=== PATIENT | female | born 1980 | race Hispanic/Latino ===

== ENCOUNTER 2022-06-02 09:01 | Emergency (ER) | payer OTHER, SELFPAY ==
[2022-06-02] VITALS (7 sets, daily range): BP systolic 100–123; BP diastolic 57–61; PULSE 51–70; RESP 16–24; TEMP 36.8; O2SAT 97–99; BMI 27.3
--- NOTE | 2022-06-02 09:32 | ED_ITS ---
HPI - Neuro Symptoms/Deficit General Chief Complaint: Shortness of Breath/Dyspnea Stated Complaint: left arm is numb and tingly/pain Time Seen by Provider: 06/02/22 09:16 Source: patient Mode of arrival: Family Vehicle History of Present Illness HPI Narrative: Patient is a 41-year-old female history of anxiety presenting today with left a rm tingling. She was evaluated 5 days ago for what was thought to be left elbow strain. It hurts every time she moved. This morning she woke up and feels like she slept wrong. Her arm shoulder to fingertips is tingly. She denies any weakness. No chest pain palpitations or shortness breath. She denies any fever or chills. This has never happened to her before. She denies any neck. On Anticoagulants: No Related Data Home Medications Medication Instructions Recorded Confirmed No Known Home Medications 05/28/22 05/28/22 Allergies Allergy/AdvReac Type Severity Reaction Status Date / Time No Known Drug Allergies Allergy Unverified 05/28/22 17:38 Review of Systems Review of Systems Narrative: GENERAL: Denies chills, fatigue, malaise, fever, sweats, travel HEENT: Denies sinus pain, ear pain, sore throat, difficulty swallowing, neck pain RESPIRATORY: Denies dyspnea, cough, wheezing, hemoptysis, sputum. CARDIOVASCULAR: Denies chest pain, palpitations, orthopnea, edema GASTROINTESTINAL: Denies nausea, vomiting, abdominal pain, diarrhea, constipation, melena. : Denies dysuria, frequency, incontinence, hematuria, urinary retention, flank pain. MUSCULOSKELETAL: Denies weakness, joint pain, or bony pain SKIN: No rash, no erythema, no pruritus NEUROLOGIC: See HPI PSYCHIATRIC: No concerning psychosocial issues. 12 point review of systems is negative except for those stated above and HPI Hematologic/Lymphatic On Anticoagulants: No Patient History Social History Smoking Status: Current every day smoker Smoking Status: Current every day smoker tobacco type: cigarettes and vaping alcohol intake frequency: 0-2 drinks per day Substance Use Type: former substance user and methamphetamine Exam Initial Vital Signs Initial Vital Signs: Vital Signs Pulse Rate 66 06/02/22 09:08 Respiratory Rate 18 06/02/22 09:08 Pulse Oximetry 97 06/02/22 09:08 GENERAL: Alert pleasant 41-year-old female and in no acute distress. HEENT: Head atraumatic,EOMI, pupils reactive, face symmetric, moist mucous membranes CARDIOVASCULAR: Regular rate and rhythm without murmurs, rubs or gallops. RESPIRATORY: Breath sounds equal bilaterally, no wheezes rales or rhonchi. ABDOMEN: Soft, nontender. Normoactive bowel sounds all 4 quadrants. No guarding or rebound. EXTREMITIES: Normal range of motion, no clubbing or edema. Neurovascularly intact NEUROLOGICAL: Alert and oriented x4.Normal gait and speech. Cranial nerves II through XII grossly intact. Good tzrrbq-ul-gjtp, good xeej-ch-btwj, strength equal bilaterally, no dysarthria or aphasia, slight decreased sensation in left arm only y, no visual changes, no facial droop SKIN: Warm, dry, no laceration, no petechiae, no rashes or lesions. Scores ABCD2 Age >= 60 years: no Initial BP. Either SBP >= 140 or DBP >= 90.: no Clinical features of the TIA: other symptoms Duration of symptoms: >= 60 minutes History of diabetes: no ABCD2 Score: 2 NIH Stroke Scale Level of Conciousness: Alert, keenly responsive Ask month/age: Answers both questions correctly. Open/close eyes, close hand: Performs both tasks correctly Best gaze horizontal: Normal Visual lopez: No visual loss Facial palsy: Normal symetrical movement Left arm drift: No drift for full 10 sec Right arm drift: No drift for full 10 sec Left leg drift: No drift for full 5 sec Right leg drift: No drift for full 5 sec Limb ataxia: Absent Sensory on face/arms/legs: Mild to moderate sensory loss, can tell touch Best language: No aphasia, normal Dysarthria: Normal Extinction or inattention: No abnormality Total NIH Stroke scale score: 1 Course Orders Ordered: ED Orders 06/02/22 09:13 EKG-12 Lead Routine 06/02/22 09:15 Complete Blood Count AUTO DIFF Stat Comprehensive Metabolic Panel Stat Lipase Stat Test Serum,Qual Stat Troponin & CK Cardiac Panel Stat 06/02/22 09:42 CT angio head and neck Stat 06/02/22 09:43 XR chest 1V Stat Vital Signs Vital signs: Vital Signs - 8 hr 06/02/22 11:15 06/02/22 11:16 06/02/22 11:16 Pulse Rate 63 58 L Respiratory Rate 18 Blood Pressure 101/57 L Pulse Oximetry 99 98 MDM - Neuro Symptoms/Deficit Lab Data Result diagrams: 06/02/22 09:15 06/02/22 09:15 Labs: Lab Results 06/02/22 06/02/22 06/02/22 Range/Units 09:15 09:15 09:15 WBC 6.6 (4.5-11.0) X10^3/uL RBC 4.05 (4.0-5.2) X10^6/uL Hgb 13.0 (12.0-16.0) g/dL Hct 36.7 (36-46) % MCV 90.7 (80-100) fL MCH 32.2 (26-34) PG MCHC 35.5 (30-36) % RDW 12.6 (11.6-14.8) % Plt Count 175 (150-400) X10^3/uL Neut % (Auto) 56.4 (50-75) % Lymph % (Auto) 33.9 (25-40) % [place] % (Auto) 7.2 (3-14) % Eos % (Auto) 2.0 (2-4) % Baso % (Auto) 0.5 (0-2) % Neut # (Auto) 3700 (8582-2032) /uL Lymph # (Auto) 2200 (1863-6183) /uL [place] # (Auto) 500 (0-900) /uL Eos # (Auto) 100 (0-450) /uL Baso # (Auto) 0 (0-100) /uL Sodium 137 (137-145) mmol/L Potassium 4.1 (3.4-5.1) mmol/L Chloride 103 (98-107) mmol/L Carbon Dioxide 29 (22-32) mmol/L BUN 14 (7-17) mg/dL Creatinine 0.71 (0.52-1.04) mg/dL Estimated GFR > 60 (>60) mL/min BUN/Creatinine Ratio 19.7 (6-22) Glucose 94 (70-100) mg/dL Calcium 8.9 (8.4-10.2) mg/dL Total Bilirubin 0.5 (0.2-1.3) mg/dL AST 23 (14-36) IU/L ALT 14 (<35) IU/L Alkaline Phosphatase 47 (38-126) U/L Total Creatine Kinase 51 (30-135) U/L CK-MB (CK-2) TNP CK-MB (CK-2) Rel Index TNP Troponin I < 0.012 (0.01-0.034) ng/mL Total Protein 7.0 (6.3-8.2) g/dL Albumin 4.2 (3.5-5.0) g/dL Globulin 2.8 (1.7-4.1) g/dL Albumin/Globulin Ratio 1.5 (1.0-2.8) Lipase 73 (23-300) U/L Serum , Qual Negative (Negative) Imaging Data Chest x-ray: Radiologist's Impression: XRay Report Signed Patient: Damaris Shea MR#: [id number] : 1980 Acct:[id number] Age/Sex: 41 / F Date of Service: 06/02/22 Loc: ED Accession Number: [id number] ?? Procedure: XR chest 1V Ordering Provider: Tracie Miranda D.O. PROCEDURE:? XR CHEST 1V ? INDICATIONS:? chest ? TECHNIQUE:? One view of the chest was acquired.? ? COMPARISON:? None. ? FINDINGS:? ? Surgical changes and devices:? None.? ? Lungs and pleura:? Ill-defined opacity in right lower lung field is seen suggestive of small right lower lobe infiltrate.? No pleural effusions or pneumothorax.? ? Mediastinum:? Mediastinal contours appear normal.? Heart size is normal.? ? Bones and chest wall:? No suspicious bony lesions.? Overlying soft tissues appear unremarkable.? ? IMPRESSION:? Finding is concerning for small right lower lobe infiltrate/atelectasis.? No pleural effusion or pneumothorax. ? ? Dictated by: Rajeev Shaw M.D. on 06/02/2022 at 10:42 ? CTA - brain/neck: Radiologist's Impression: CT Scan Report Signed Patient: Damaris Shea MR#: [id number] : 1980 Acct:[id number] Age/Sex: 41 / F Date of Service: 06/02/22 Loc: ED Accession Number: [id number] ?? Procedure: CT angio head and neck Ordering Provider: Tracie Miranda D.O. PROCEDURE:? CT ANGIO HEAD AND NECK ? INDICATIONS:? left arm tingling ? TECHNIQUE:? Pre-contrast 4.5 mm thick sections acquired from the foramen magnum to the vertex.? After the administration of intravenous contrast, 1 mm thick sections acquired from the aortic arch through the [place].? Post-contrast 4.5 mm thick sections then re- acquired from the foramen magnum to the vertex.? 3-dimensional hldkcbc-xgpvvlunq-cuekukmjel (MIP) and/or volume rendering reformats were acquired of the central intracranial vasculature and neck separately. For radiation dose reduction, the following was used:? automated exposure control, adjustment of mA and/or kV according to patient size.? ? COMPARISON:? [facility], CR, XR CHEST 1V, 06/02/2022, 10:00. ? FINDINGS:? Image quality:? Mild streak artifact can be seen through the skull base.? Limited by bolus timing, with venous contamination ? BRAIN:? CSF spaces:? Ventricles are normal in size and shape.? Basal cisterns are patent.? No extra-axial fluid collections.? ? Brain:? No midline shift.? No intracranial bleeds or masses.? Fish-white matter interface appears intact.? ? Skull and face:? Calvarium and facial bones appear intact, without suspicious lesions.? Orbits appear normal.? ? Sinuses:? Sinuses and mastoids are clear.? ? HEAD CT ANGIOGRAPHY:? Anterior circulation:? Intracranial internal carotid arteries are normal in size and flow.? The flow within the paired anterior cerebral arteries is normal and symmetric.? The flow within the middle cerebral arteries is normal and symmetric.? The anterior communicating artery is seen.? No aneurysms are seen.? ? Posterior circulation:? Visualized portions of the vertebral arteries demonstrate normal caliber, and join to form a normal appearing basilar artery.? Flow within the posterior cerebral arteries is normal and symmetric.? No aneurysms are seen.? ? NECK CT ANGIOGRAPHY:? Carotid system:? The great vessels demonstrate a conventional anatomy as they arise from the aortic arch.? No significant subclavian artery abnormality is seen.? The origins of the common carotid arteries appear patent.? The common carotid arteries demonstrate normal caliber and courses.? The bifurcation regions are both widely patent.? The internal carotid arteries demonstrate normal calibers and courses.? ? Posterior circulation:? The origins of the vertebral arteries both appear widely patent.? The more superior extracranial portions of both vertebral arteries also demonstrate normal courses and calibers.? They join to form a normal appearing basilar artery.? ? Soft tissues:? Visualized neck soft tissues demonstrate no suspicious abnormalities.? ? Bones:? No suspicious bony lesions.? Visualized cervical spine appears normally aligned.? IMPRESSION:? No significant intracranial arterial abnormality is seen.? ? Within the arteries of the neck, no hemodynamically significant stenosis can be seen. ? ? No acute intracranial process is seen.? ? If there is strong clinical suspicion for an acute stroke, please consider a brain MRI for further evaluation, as it is more sensitive (assuming that there is no contraindication to MRI). ? Any quantitative measurements of stenosis were performed using NASCET criteria.? ? ? Dictated by: Hu Peralta M.D. on 06/02/2022 at 10:03 ? ECG Data Interpretation: Normal sinus rhythm rate 58 DC interval 144 QRS [address] changes or T- wave inversions, no priors MDM Narrative Medical decision making narrative: Patient is out of the window for tPA. NIH stroke scale is 1. She has ongoing left elbow pain which is been there for about 1 week. A that some of her tingling might be related to her inflammation of her elbow. Blood work is reassuring CTA is negative. Her symptoms actually improved in the ED. she has no risk factors for stroke. She and I discussed these options and possibilities. At this time we agree that she could go home. Probably a peripheral neuropathy possibly exacerbated by her acute tendonitis. Discharge Plan Departure Patient Disposition: Home Clinical Impression: Peripheral neuropathy Instructions: DI for Peripheral Neuropathy Activity Restrictions/Additional Instructions: *You have been diagnosed with peripheral neuropathy *What to do: At this time head CT and blood work were overall reassuring this might be related to your elbow. may need an outpatient MRI. *Continue to take medications as directed Tylenol 1000 mg every 6 hours if needed for kphm-az-zzlosgpa Ibuprofen 600 mg every 6 hours if needed for uwff-qy-lnzunxdm pain *Follow up with your primary care provider in 2-3 days or call [phone] *Return to ER if you should have increasing weakness numbness tingling chest or any new, worsening or concerning symptoms Prescriptions: No Action No Known Home Medications Referrals: Charleen Hubbard DO [Primary Care Provider] - Visit Report Forms: Patient Portal/API
--- NOTE | 2022-06-02 09:42 | DI.CT.S_ITS ---
PROCEDURE: CT ANGIO HEAD AND NECK INDICATIONS: left arm tingling TECHNIQUE: Pre-contrast 4.5 mm thick sections acquired from the foramen magnum to the vertex. After the administration of intravenous contrast, 1 mm thick sections acquired from the aortic arch through the [place]. Post-contrast 4.5 mm thick sections then re-acquired from the foramen magnum to the vertex. 3-dimensional ismfcik-gteisnarq-rdeuamqitd (MIP) and/or volume rendering reformats were acquired of the central intracranial vasculature and neck separately. For radiation dose reduction, the following was used: automated exposure control, adjustment of mA and/or kV according to patient size. COMPARISON: [facility], CR, XR CHEST 1V, 06/02/2022, 10:00. FINDINGS: Image quality: Mild streak artifact can be seen through the skull base. Limited by bolus timing, with venous contamination BRAIN: CSF spaces: Ventricles are normal in size and shape. Basal cisterns are patent. No extra-axial fluid collections. Brain: No midline shift. No intracranial bleeds or masses. Fish-white matter interface appears intact. Skull and face: Calvarium and facial bones appear intact, without suspicious lesions. Orbits appear normal. Sinuses: Sinuses and mastoids are clear. HEAD CT ANGIOGRAPHY: Anterior circulation: Intracranial internal carotid arteries are normal in size and flow. The flow within the paired anterior cerebral arteries is normal and symmetric. The flow within the middle cerebral arteries is normal and symmetric. The anterior communicating artery is seen. No aneurysms are seen. Posterior circulation: Visualized portions of the vertebral arteries demonstrate normal caliber, and join to form a normal appearing basilar artery. Flow within the posterior cerebral arteries is normal and symmetric. No aneurysms are seen. NECK CT ANGIOGRAPHY: Carotid system: The great vessels demonstrate a conventional anatomy as they arise from the aortic arch. No significant subclavian artery abnormality is seen. The origins of the common carotid arteries appear patent. The common carotid arteries demonstrate normal caliber and courses. The bifurcation regions are both widely patent. The internal carotid arteries demonstrate normal calibers and courses. Posterior circulation: The origins of the vertebral arteries both appear widely patent. The more superior extracranial portions of both vertebral arteries also demonstrate normal courses and calibers. They join to form a normal appearing basilar artery. Soft tissues: Visualized neck soft tissues demonstrate no suspicious abnormalities. Bones: No suspicious bony lesions. Visualized cervical spine appears normally aligned. IMPRESSION: No significant intracranial arterial abnormality is seen. Within the arteries of the neck, no hemodynamically significant stenosis can be seen. No acute intracranial process is seen. If there is strong clinical suspicion for an acute stroke, please consider a brain MRI for further evaluation, as it is more sensitive (assuming that there is no contraindication to MRI). Any quantitative measurements of stenosis were performed using NASCET criteria. Dictated by: Hu Peralta M.D. on 06/02/2022 at 10:03 Approved by: Hu Peralta M.D. on 06/02/2022 at 10:06
--- NOTE | 2022-06-02 09:43 | DI.RAD.S_ITS ---
PROCEDURE: XR CHEST 1V INDICATIONS: chest TECHNIQUE: One view of the chest was acquired. COMPARISON: None. FINDINGS: Surgical changes and devices: None. Lungs and pleura: Ill-defined opacity in right lower lung field is seen suggestive of small right lower lobe infiltrate. No pleural effusions or pneumothorax. Mediastinum: Mediastinal contours appear normal. Heart size is normal. Bones and chest wall: No suspicious bony lesions. Overlying soft tissues appear unremarkable. IMPRESSION: Finding is concerning for small right lower lobe infiltrate/atelectasis. No pleural effusion or pneumothorax. Dictated by: Rajeev Shaw M.D. on 06/02/2022 at 10:42 Approved by: Rajeev Shaw M.D. on 06/02/2022 at 10:42
[2022-06-02 09:51] LABS: Add Manual Diff / Slide Review NO; Basophils Absolute Auto 0 /uL (0-100); Basophils Percent Auto 0.5 % (0-2); Eosinophils Absolute Auto 100 /uL (0-450); Hematocrit 36.7 % (36-46); Lymphocytes Absolute Auto 2200 /uL (1100-4500); Lymphocytes Percent Auto 33.9 % (25-40); Mean Corpuscular HGB Conc 35.5 % (30-36); Mean Corpuscular Hemoglobin 32.2 PG (26-34); Mean Corpuscular Volume 90.7 fL (80-100); Monocytes Absolute Auto 500 /uL (0-900); Monocytes Percent Auto 7.2 % (3-14); Neutrophils Absolute Auto 3700 /uL (1500-7000); Neutrophils Percent Auto 56.4 % (50-75); Platelet Count 175 X10^3/uL (150-400); Red Blood Cell Count 4.05 X10^6/uL (4.0-5.2); Red Cell Distribution Width 12.6 % (11.6-14.8); White Blood Cell Count 6.6 X10^3/uL (4.5-11.0)
[2022-06-02 09:58] LABS: Pregnancy Test Serum,Qual Negative (Negative)
[2022-06-02 09:59] LABS: Alanine Aminotransferase 14 IU/L (<35); Albumin 4.2 g/dL (3.5-5.0); Albumin Globulin Ratio 1.5 (1.0-2.8); Alkaline Phosphatase 47 U/L (38-126); Aspartate Aminotransferase 23 IU/L (14-36); BUN Creatinine Ratio 19.7 (6-22); Bilirubin Total 0.5 mg/dL (0.2-1.3); Blood Urea Nitrogen 14 mg/dL (7-17); Calcium 8.9 mg/dL (8.4-10.2); Carbon Dioxide 29 mmol/L (22-32); Chloride 103 mmol/L (98-107); Creatine Kinase 51 U/L (30-135); Estimated Glomerular Filt Rate > 60 mL/min (>60); Globulin 2.8 g/dL (1.7-4.1); Glucose 94 mg/dL (70-100); HEMOLYSIS < 15 (0-50); Lipase 73 U/L (23-300); Potassium 4.1 mmol/L (3.4-5.1); Sodium 137 mmol/L (137-145)
[2022-06-02 10:11] LABS: Troponin I < 0.012 ng/mL (0.01-0.034)
== END 2022-06-02 11:38 | disposition home or self-care (01) ==
PROVIDERS: Emergency Provider Emergency Medicine; PCP Family Medicine
DX: G62.9 Polyneuropathy, unspecified (principal)
CPT/HCPCS: 36415; 70496; 70498; 71045; 80053; 82550; 83690; 84484; 84703; 85025; 93005; 93010; 99283; 99284; Q9967

== ENCOUNTER → 2022-06-04 12:11 | Outpatient (CLI) | payer OTHER, SELFPAY ==
--- NOTE | 2022-06-04 12:12 | DI.RAD.S_ITS ---
PROCEDURE: XR ELBOW LT MIN 3V INDICATIONS: left elbow pain, overuse injury TECHNIQUE: Three views of the elbow were acquired. COMPARISON: None. FINDINGS: Bones: No fractures or dislocations. No suspicious bony lesions. Soft tissues: No elbow joint effusion. No suspicious soft tissue calcifications. IMPRESSION: Intact left elbow. Dictated by: Cindy Coates M.D. on 06/04/2022 at 12:56 Approved by: Cindy Coates M.D. on 06/04/2022 at 12:56
== END ==
PROVIDERS: PCP Family Medicine; Referring Provider Student in an Organized Health Care Education/Training Program; Visit Provider Student in an Organized Health Care Education/Training Program
DX: M25.522 Pain in left elbow (principal)
CPT/HCPCS: 73080

== ENCOUNTER → 2022-07-28 15:48 | Outpatient (CLI) | payer OTHER, SELFPAY ==
[2022-07-28 17:01] LABS: Appearance Urine UA CLEAR; Bilirubin Urine UA NEGATIVE (NEGATIVE); Color Urine UA YELLOW; Glucose Urine UA NEGATIVE (Negative); Ketones Urine UA NEGATIVE (NEGATIVE); Leukocyte Esterase Urine UA NEGATIVE (NEGATIVE); Nitrite Urine UA NEGATIVE (Negative); Occult Blood Urine UA 2+ (Negative); Protein Urine UA NEGATIVE (Negative); Specific Gravity Urine UA <=1.005 (1.000-1.035); Urobilinogen Urine UA 0.2 E.U./dL (0.2)
[2022-07-28 17:08] LABS: pH Urine UA 6.5 (4.5-8.0)
[2022-07-28 17:11] LABS: Bacteria Urine None Seen; Culture Indicated Urine Cult Not Indicated; RBC Urine None Seen (0-5/HPF); Squamous Epithelial Cell Urine 5-10 /HPF (0-5/HPF); WBC Urine None Seen (0-5/HPF)
== END ==
PROVIDERS: PCP Family Medicine; Referring Provider Family Medicine; Visit Provider Family Medicine
DX: N39.0 Urinary tract infection, site not specified (principal)
CPT/HCPCS: 81001

== ENCOUNTER → 2022-09-16 11:29 | Outpatient (CLI) | payer OTHER, SELFPAY ==
[2022-09-16 12:44] LABS: Influenza A - CEPHEID Flu A NEGATIVE (NEGATIVE); Influenza B - CEPHEID Flu B NEGATIVE (NEGATIVE); Respiratory Syncytial Virus Negative (Negative)
[2022-09-16 13:01] LABS: COVID-19 CEPHEID 4-PLEX PCR POSITIVE (Negative)
== END ==
PROVIDERS: Family Provider Family Medicine; PCP Family Medicine; Visit Provider Registered Nurse
DX: R05.9 Cough, unspecified (principal); J02.9 Acute pharyngitis, unspecified
CPT/HCPCS: 0241U; 87070

== ENCOUNTER 2022-09-22 23:24 | Emergency (ER) | payer OTHER, SELFPAY ==
[2022-09-22 23:43] VITALS: BP 113/55; PULSE 64; RESP 16; TEMP 36.8; O2SAT 98; BMI 28.3
== END 2022-09-22 23:57 | disposition left against medical advice (07) ==
PROVIDERS: Emergency Provider Emergency Medicine; Family Provider Family Medicine; PCP Family Medicine
CPT/HCPCS: 99281

== ENCOUNTER 2022-11-17 13:00 | Outpatient (RCR) | payer OTHER, SELFPAY ==
--- NOTE | 2022-09-27 16:14 | PT.OIE ---
Current Diagnoses Pain in left elbow (09/27/22) Past Medical History (Last Reviewed 09/16/22 @ 11:45 by FERNANDA Morrison) Anxiety Left elbow pain Upper extremity somatic dysfunction Urinary tract infection symptoms Past Surgical History (Last Reviewed 09/16/22 @ 11:45 by FERNANDA Morrison) Anesthesia History of shoulder surgery (~02/2020) History of tubal ligation (~2002) Visit Care Team Role Provider Type Charleen Hubbard DO Primary Care Provider Physician Specialty: Medical Address: [address] [place] [address], [address], [place], [address] Email: [email or web address] Rudy Kapoor DO Attending Provider Physician Family Provider Referring Provider Specialty: Family Practice Address: [address] [place] [address], [id number] Email: Physical Therapy Initial Evaluation PT-OP-A Visit Information Start: 09/27/22 09:05 Freq: Status: Active Protocol: Document 09/27/22 08:15 AMB (Rec: 09/27/22 13:00 AMB [id number]) Out-Patient Physical Therapy Visit Information Visit Information Visit Type Initial Evaluation Visit Start Time 09:00 Visit Stop Time 09:45 Total Visit Minutes 45 Visit Number 1 PT-OP-B Current Condition Start: 09/27/22 09:05 Freq: Status: Active Protocol: Document 09/27/22 09:05 AMB (Rec: 09/27/22 09:38 AMB [id number]) Current Condition History of Current Condition Onset Date March 2022 Current Complaints L elbow pain History of Current Condition Used to lift weights but has been unable since March due to elbow pain. No falls/trauma, more insidious onset. Using the phone hurts the elbow. 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 0 pain after manual treatment for a couple days after Dr. Kapoor worked on it, but then the pain came back. Pain is worse at night. Has tried icing and ibuprofen and tylenol which help but didn't want to take too many pills. Overall describes pain as 5/10, can radiate into the forearm and up into the biceps. Pain over medial and lateral epicondyles. Treatment Goals Patient/Caregiver Goals Reduce pain to train dogs/ use phone/sleep without pain Prior Functional Status Baseline Function- ADL's Independent Baseline Function- Mobility Independent Personal Factors Other Personal Factors That May Effect Anxiety Therapy/Recovery PT-OP-C Subjective Start: 09/27/22 09:05 Freq: Status: Active Protocol: Document 09/27/22 08:15 AMB (Rec: 09/27/22 13:00 AMB [id number]) OP-PT Pain Assessment Comments Pain Comments 6/10 L PT-OP-J Posture/Palpation/Skin Start: 09/27/22 09:05 Freq: Status: Active Protocol: Document 09/27/22 08:15 AMB (Rec: 09/27/22 15:53 AMB [id number]) Palpation Assessment Location One Palpation Details tenderness over forearm musculature, not as much into biceps. point tenderness over insertion of both wrist extensors and flexors. PT-OP-K Range of Motion Start: 09/27/22 09:05 Freq: Status: Active Protocol: Document 09/27/22 08:15 AMB (Rec: 09/27/22 15:53 AMB [id number]) Elbow/Forearm Range of Motion Elbow/Forearm Left Elbow/Forearm ROM WFL Yes PT-OP-L Special Tests Start: 09/27/22 09:05 Freq: Status: Active Protocol: Document 09/27/22 08:15 AMB (Rec: 09/27/22 15:53 AMB [id number]) Special Tests Elbow Special Tests Varus- 25 Degrees Test Results - Valgus- 25 Degrees Test Results - Lateral Epicondylitis Extended Test Results + Medial Epicondylitis Test Results + PT-OP-M Strength Start: 09/27/22 09:05 Freq: Status: Active Protocol: Document 09/27/22 08:15 AMB (Rec: 09/27/22 15:53 AMB [id number]) Elbow/Forearm Strength Elbow and Forearm Manual Muscle Testing Left Flexion (C6) 4+ Good+ Extension (C7) 4+ Good+ Wrist Strength Wrist Manual Muscle Testing Left Flexion (C7) 4 Good Extension (C6) 4 Good Comments pain with resisted wrist flexion and extension PT-OP-Q Treatments Start: 09/27/22 09:05 Freq: Status: Active Protocol: Document 09/27/22 08:15 AMB (Rec: 09/27/22 15:53 AMB [id number]) Therapeutic Exercises Sitting Exercises wrist extensor stretch Side left Reps/Minutes 30x2 wrist flexor stretch Side left Reps/Minutes 30x2 PT-OP-T Assessment and Plan Start: 09/27/22 09:05 Freq: Status: Active Protocol: Document 09/27/22 08:15 AMB (Rec: 09/27/22 16:14 AMB [id number]) Physical Therapy Assessment Rehab Potential Rehabilitation Potential Good Evaluation Complexity Number of Personal Factors/Comorbidities 1-2 Number of Body Systems Impaired 1-2 Clinical Presentation at Evaluation Stable Impairments Impairments Activity Tolerance,Functional Activities,Pain,ROM,Strength Goals Two Impairment Strength Short Term Goal (STG) 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 STG Duration 5 weeks Chcf Goal (LTG) Damaris will be consistent and independent with a HEP for stretching and strengthening her left arm and forearm. LTG Duration 10 weeks One Impairment Pain Short Term Goal (STG) Damaris will use her phone for 30 minutes with 3/10 pain or less. STG Duration 5 weeks Garment Cutter Goal (LTG) Damaris will work on dog training for 1 hour with pain of 1/10 or less. LTG Duration 10 weeks Assessment Summary Assessment Damaris attends physical therapy with L elbow pain, worsened with working on her phone and dog walking. Signs and symptoms consistent with both medial and lateral epicondylitis. Educated in options for reducing inflammation and stretching, PT to incorporate strengthening and return to gym exercises as pt tolerates as she has been unable to exercise her upper body for 6 months due to the pain. Physical Therapy Plan Frequency and Duration Frequency of Treatment 2x/Week Duration of treatment (weeks) 10 Plan of Care Start Date 09/27/22 Plan of Care End Date 12/06/22 Therapeutic Interventions Therapeutic Interventions Home Exercise Program,Manual Therapy,Neuromuscular Re- education,Self-Care/Home Management,Therapeutic Activities,Therapeutic Exercises Modalities Cold Pack/Ice Massage,Electric Stimulation,Iontophoresis, Ultrasound Other Therapeutic Interventions ionto with dexamethasone Next Visit Focus/Plan Next Note Type Treatment Note Next Visit Plan begin with stretching, reduce inflammation, can consider iontophoresis vs kinesiotape. Then progress strengthening as tolerated.
--- NOTE | 2022-09-27 16:15 | PT.OPPOC ---
Physical, Occupational & Speech Therapy At [facility] Current Diagnoses Pain in left elbow (09/27/22) Visit Care Team Role Provider Type Charleen Hubbard DO Primary Care Provider Physician Specialty: Medical Address: [address] [place] [address], [address], [place], [address] Email: [email or web address] Rudy Kapoor DO Attending Provider Physician Family Provider Referring Provider Specialty: Family Practice Address: [address] [place] [address], [id number] Email: Plan Of Care PT-OP-T Assessment and Plan Start: 09/27/22 09:05 Freq: Status: Active Protocol: Document 09/27/22 08:15 AMB (Rec: 09/27/22 16:14 AMB [id number]) Physical Therapy Assessment Rehab Potential Rehabilitation Potential Good Evaluation Complexity Number of Personal Factors/Comorbidities 1-2 Number of Body Systems Impaired 1-2 Clinical Presentation at Evaluation Stable Impairments Impairments Activity Tolerance,Functional Activities,Pain,ROM,Strength Goals Two Impairment Strength Short Term Goal (STG) 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 STG Duration 5 weeks Assisted Goal (LTG) Damaris will be consistent and independent with a HEP for stretching and strengthening her left arm and forearm. LTG Duration 10 weeks One Impairment Pain Short Term Goal (STG) Damaris will use her phone for 30 minutes with 3/10 pain or less. 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 LTG Duration 10 weeks Assessment Summary Assessment Damaris attends physical therapy with L elbow pain, worsened with working on her phone and dog walking. Signs and symptoms consistent with both medial and lateral epicondylitis. Educated in options for reducing inflammation and stretching, PT to incorporate strengthening and return to gym exercises as pt tolerates as she has been unable to exercise her upper body for 6 months due to the pain. Physical Therapy Plan Frequency and Duration Frequency of Treatment 2x/Week Duration of treatment (weeks) 10 Plan of Care Start Date 09/27/22 Plan of Care End Date 12/06/22 Therapeutic Interventions Therapeutic Interventions Home Exercise Program,Manual Therapy,Neuromuscular Re- education,Self-Care/Home Management,Therapeutic Activities,Therapeutic Exercises Modalities Cold Pack/Ice Massage,Electric Stimulation,Iontophoresis, Ultrasound Other Therapeutic Interventions ionto with dexamethasone Next Visit Focus/Plan Next Note Type Treatment Note Next Visit Plan begin with stretching, reduce inflammation, can consider iontophoresis vs kinesiotape. Then progress strengthening as tolerated. Plan of Care Dates Plan of Care Start Date 09/27/22 Plan of Care End Date 12/06/22 Electronically Signed by: Zeynep Holman, PT 09/27/22 2216 If you are in agreement with this Plan of Care, please return a signed and dated copy. I have reviewed this Plan of Care and certify that the skilled therapy services above are required to meet the patient?s needs. Physician Signature Date Printed Name and Credentials Clinical Instructor Signature Printed Name and Credentials
--- NOTE | 2022-09-29 22:01 | PT.OTN ---
Current Diagnoses Pain in left elbow (09/29/22) Physical Therapy Treatment Note PT-OP-A Visit Information Start: 09/27/22 09:05 Freq: Status: Active Protocol: Document 09/29/22 09:47 AMB (Rec: 09/29/22 10:33 AMB [id number]) Out-Patient Physical Therapy Visit Information Visit Information Visit Type Treatment Note Visit Start Time 09:45 Visit Stop Time 10:30 Total Visit Minutes 45 Visit Number 2 PT-OP-B Current Condition Start: 09/27/22 09:05 Freq: Status: Active Protocol: Document 09/27/22 09:05 AMB (Rec: 09/27/22 09:38 AMB [id number]) Current Condition History of Current Condition Onset Date March 2022 Current Complaints L elbow pain History of Current Condition Used to lift weights but has been unable since March due to elbow pain. No falls/trauma, more insidious onset. Using the phone hurts the elbow. 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 0 pain after manual treatment for a couple days after Dr. Kapoor worked on it, but then the pain came back. Pain is worse at night. Has tried icing and ibuprofen and tylenol which help but didn't want to take too many pills. Overall describes pain as 5/10, can radiate into the forearm and up into the biceps. Pain over medial and lateral epicondyles. Treatment Goals Patient/Caregiver Goals Reduce pain to train dogs/ use phone/sleep without pain Prior Functional Status Baseline Function- ADL's Independent Baseline Function- Mobility Independent Personal Factors Other Personal Factors That May Effect Anxiety Therapy/Recovery PT-OP-C Subjective Start: 09/27/22 09:05 Freq: Status: Active Protocol: Document 09/29/22 09:47 AMB (Rec: 09/29/22 10:33 AMB [id number]) OP-PT Subjective Patient Comments Patient Comments Pt reports feels like tape is helpful. PT-OP-J Posture/Palpation/Skin Start: 09/27/22 09:05 Freq: Status: Active Protocol: Document 09/27/22 08:15 AMB (Rec: 09/27/22 15:53 AMB [id number]) Palpation Assessment Location One Palpation Details tenderness over forearm musculature, not as much into biceps. point tenderness over insertion of both wrist extensors and flexors. PT-OP-K Range of Motion Start: 09/27/22 09:05 Freq: Status: Active Protocol: Document 09/27/22 08:15 AMB (Rec: 09/27/22 15:53 AMB [id number]) Elbow/Forearm Range of Motion Elbow/Forearm Left Elbow/Forearm ROM WFL Yes PT-OP-L Special Tests Start: 09/27/22 09:05 Freq: Status: Active Protocol: Document 09/27/22 08:15 AMB (Rec: 09/27/22 15:53 AMB [id number]) Special Tests Elbow Special Tests Varus- 25 Degrees Test Results - Valgus- 25 Degrees Test Results - Lateral Epicondylitis Extended Test Results + Medial Epicondylitis Test Results + PT-OP-M Strength Start: 09/27/22 09:05 Freq: Status: Active Protocol: Document 09/27/22 08:15 AMB (Rec: 09/27/22 15:53 AMB [id number]) Elbow/Forearm Strength Elbow and Forearm Manual Muscle Testing Left Flexion (C6) 4+ Good+ Extension (C7) 4+ Good+ Wrist Strength Wrist Manual Muscle Testing Left Flexion (C7) 4 Good Extension (C6) 4 Good Comments pain with resisted wrist flexion and extension PT-OP-Q Treatments Start: 09/27/22 09:05 Freq: Status: Active Protocol: Document 09/29/22 09:45 AMB (Rec: 09/29/22 15:20 AMB [id number]) Therapeutic Exercises Sidelying Exercises open book Sidelying Exercise Name education in gentle ROM options first thing in morning Side left Reps/Minutes 3 Sitting Exercises putty Side left Comments orange biceps Sitting Exercise Name AROM only Side left Reps/Minutes 2x10 Comments supination, pronation, neutral wrist extensor stretch Side left Reps/Minutes 30x2 wrist flexor stretch Side left Reps/Minutes 30x2 Manual Therapy Treatment Soft Tissue Mobilization 1 Body Location biceps Mobilization Type Myofascial Release Taping biceps Type of Tape Kinesio Tape Comments from distal to proximal attachment to inhibit epicondylitis Type of Tape Kinesio Tape Comments I strip just distal to epicondyles mimicking tennis elbow strap PT-OP-R Modalities Start: 09/27/22 09:05 Freq: Status: Active Protocol: Document 09/29/22 09:45 AMB (Rec: 09/29/22 19:03 AMB [id number]) Iontophoresis Treatment Medial Elbow Treatment Medication Dexamethasone (-) Medication Amount (mL) (ml) 1 Treatment Polarity Negative to Negative Active Electrode Placement medial epicondyle Patient Tolerance Fair PT-OP-T Assessment and Plan Start: 09/27/22 09:05 Freq: Status: Active Protocol: Document 09/29/22 09:45 AMB (Rec: 09/29/22 13:01 AMB [id number]) Physical Therapy Assessment Assessment Summary Assessment After patient left felt a burning sensation in iontophoresis patch so educated pt to remove patch and wash with soap and water. Biceps was more irritable today, perhaps k tape helped a bit with epicondylitis but really just started biceps work. Pt has not been icing much, so will need to work more on that in clinic, educate on importance of inflammation reduction. Overall tendons throughout elbow are inflamed. Physical Therapy Plan Frequency and Duration Frequency of Treatment 2x/Week Duration of treatment (weeks) 10 Plan of Care Start Date 09/27/22 Plan of Care End Date 12/06/22 Therapeutic Interventions Therapeutic Interventions Home Exercise Program,Manual Therapy,Neuromuscular Re- education,Self-Care/Home Management,Therapeutic Activities,Therapeutic Exercises Modalities Cold Pack/Ice Massage,Electric Stimulation,Iontophoresis, Ultrasound Other Therapeutic Interventions ionto with dexamethasone Next Visit Focus/Plan Next Note Type Treatment Note Next Visit Plan begin with stretching, reduce inflammation, ice massage, kinesiotape. Then progress strengthening as tolerated.
--- NOTE | 2022-10-04 17:16 | PT.OTN ---
Current Diagnoses Pain in left elbow (10/04/22) Physical Therapy Treatment Note PT-OP-A Visit Information Start: 09/27/22 09:05 Freq: Status: Active Protocol: Document 10/04/22 14:38 NBM (Rec: 10/04/22 17:09 [facility] [id number]) Out-Patient Physical Therapy Visit Information Visit Information Visit Type Treatment Note Visit Start Time 14:40 Visit Stop Time 15:30 Total Visit Minutes 50 Visit Number 3 Number of GUEST SERVICES COORDINATOR Visits 1 PT-OP-B Current Condition Start: 09/27/22 09:05 Freq: Status: Active Protocol: Document 09/27/22 09:05 AMB (Rec: 09/27/22 09:38 AMB [id number]) Current Condition History of Current Condition Onset Date March 2022 Current Complaints L elbow pain History of Current Condition Used to lift weights but has been unable since March due to elbow pain. No falls/trauma, more insidious onset. Using the phone hurts the elbow. 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 0 pain after manual treatment for a couple days after Dr. Kapoor worked on it, but then the pain came back. Pain is worse at night. Has tried icing and ibuprofen and tylenol which help but didn't want to take too many pills. Overall describes pain as 5/10, can radiate into the forearm and up into the biceps. Pain over medial and lateral epicondyles. 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 The putty sometimes feels more sore. 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 PT-OP-J Posture/Palpation/Skin Start: 09/27/22 09:05 Freq: Status: Active Protocol: Document 09/27/22 08:15 AMB (Rec: 12/12/22 15:53 AMB [id number]) Palpation Assessment Location One Palpation Details tenderness over forearm musculature, not as much into biceps. point tenderness over insertion of both wrist extensors and flexors. PT-OP-K Range of Motion Start: 09/27/22 09:05 Freq: Status: Active Protocol: Document 09/27/22 08:15 AMB (Rec: 09/27/22 15:53 AMB [id number]) Elbow/Forearm Range of Motion Elbow/Forearm Left Elbow/Forearm ROM WFL Yes PT-OP-L Special Tests Start: 09/27/22 09:05 Freq: Status: Active Protocol: Document 09/27/22 08:15 AMB (Rec: 09/27/22 15:53 AMB [id number]) Special Tests Elbow Special Tests Varus- 25 Degrees Test Results - Valgus- 25 Degrees Test Results - Lateral Epicondylitis Extended Test Results + Medial Epicondylitis Test Results + PT-OP-M Strength Start: 09/27/22 09:05 Freq: Status: Active Protocol: Document 09/27/22 08:15 AMB (Rec: 09/27/22 15:53 AMB [id number]) Elbow/Forearm Strength Elbow and Forearm Manual Muscle Testing Left Flexion (C6) 4+ Good+ Extension (C7) 4+ Good+ Wrist Strength Wrist Manual Muscle Testing Left Flexion (C7) 4 Good Extension (C6) 4 Good Comments pain with resisted wrist flexion and extension PT-OP-Q Treatments Start: 09/27/22 09:05 Freq: Status: Active Protocol: Document 10/04/22 14:38 NBM (Rec: 10/04/22 17:09 NBM [id number]) Therapeutic Exercises Sitting Exercises Supination/Pronation Side left Resistance 1# dumbbell Reps/Minutes x10 Comments slight discomfort noted to lat . epicondyle end putty Sitting Exercise Name squeeze, opposition Side left Reps/Minutes 4' Comments orange biceps Sitting Exercise Name 1. biceps curls Side left Resistance AROM>1# Reps/Minutes x10 ea Comments supination, pronation, neutral wrist extensor stretch Side left Reps/Minutes 30x1 wrist flexor stretch Side left Reps/Minutes 30x1 Manual Therapy Treatment Soft Tissue Mobilization 1 Body Location L wrist flexors/extensors, biceps Mobilization Type Myofascial Release,Rolling Intensity/Depth Moderate Body Position Sitting Comments LUE supported on pillow Taping biceps Type of Tape Kinesio Tape Comments from distal to proximal attachment to inhibit epicondylitis Type of Tape Kinesio Tape Comments I strip just distal to epicondyles mimicking tennis elbow strap Self-Care/Home Management Treatment Education Patient Education Home Exercise Program,Pain Management,Safety Other Education -Educated pt on inflammation and pain management using ice and rest - HO given for ice cup massage to medial and lateral epicondyles and biceps w/ instructions for no more than 5 minutes and to keep ice moving for duration. -Pt encouraged to support L elbow on pillow when texting and to elevate arm above heart to reduce edema. PT-OP-R Modalities Start: 09/27/22 09:05 Freq: Status: Active Protocol: Document 10/04/22 14:38 NBM (Rec: 10/04/22 17:09 [facility] [id number]) Hot Pack/Cold Pack Treatment Ice Massage Location L lateral and medial epicondyles, L biceps Patient Position Sitting Treatment Duration (minutes) 5 Patient Tolerance Good Comments <5 min ea numb PT-OP-T Assessment and Plan Start: 09/27/22 09:05 Freq: Status: Active Protocol: Document 10/04/22 14:38 NBM (Rec: 10/04/22 17:09 [facility] [id number]) Physical Therapy Assessment Goals Two Impairment Strength Short Term Goal (STG) Damaris will show equal unit aide strength without an 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 STG Duration 5 weeks Fluorescent Solution Mixer Goal (LTG) Damaris will be consistent and independent with a HEP for stretching and strengthening her left arm and forearm. LTG Duration 10 weeks One Impairment Pain Short Term Goal (STG) Damaris will use her phone for 30 minutes with 3/10 pain or less. 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 LTG Duration 10 weeks Assessment Summary Assessment Treatment focus on HEP review and manual therapy. Pt instructed to warm up orange putty at home prior to use as pt is able to tolerate it without pain today when warmed up first. Pt has positive feedback response to ice cup massage with decreased pain reported and will initiate icing at home. Pt given HO for icing L med/lat epicondyles and biceps at home w/ instructions for safety and duration. Physical Therapy Plan Frequency and Duration Frequency of Treatment 2x/Week Duration of treatment (weeks) 10 Plan of Care Start Date 09/27/22 Plan of Care End Date 12/06/22 Therapeutic Interventions Therapeutic Interventions Home Exercise Program,Manual Therapy,Neuromuscular Re- education,Self-Care/Home Management,Therapeutic Activities,Therapeutic Exercises Modalities Cold Pack/Ice Massage,Electric Stimulation,Iontophoresis, Ultrasound Other Therapeutic Interventions ionto with dexamethasone Next Visit Focus/Plan Next Note Type Treatment Note Next Visit Plan Asses response to last treatment, Provide RICE HO, consider cross-friction to tendon insertions at med/lat epicondyles POC: begin with stretching, reduce inflammation, ice massage, kinesiotape. Then progress strengthening as tolerated.
--- NOTE | 2022-10-15 18:51 | PT.OTN ---
Current Diagnoses Pain in left elbow (10/15/22) Physical Therapy Treatment Note PT-OP-A Visit Information Start: 09/27/22 09:05 Freq: Status: Active Protocol: Document 10/15/22 11:45 NBM (Rec: 10/15/22 13:23 NBM [id number]) Out-Patient Physical Therapy Visit Information Visit Information Visit Type Treatment Note Visit Start Time 11:36 Visit Stop Time 12:23 Total Visit Minutes 47 Visit Number 4 Number of ASSOCIATE PROFESSOR OF COUNSELING Visits 2 PT-OP-B Current Condition Start: 09/27/22 09:05 Freq: Status: Active Protocol: Document 09/27/22 09:05 AMB (Rec: 09/27/22 09:38 AMB [id number]) Current Condition History of Current Condition Onset Date March 2022 Current Complaints L elbow pain History of Current Condition Used to lift weights but has been unable since March due to elbow pain. No falls/trauma, more insidious onset. Using the phone hurts the elbow. 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 0 pain after manual treatment for a couple days after Dr. Kapoor worked on it, but then the pain came back. Pain is worse at night. Has tried icing and ibuprofen and tylenol which help but didn't want to take too many pills. Overall describes pain as 5/10, can radiate into the forearm and up into the biceps. Pain over medial and lateral epicondyles. 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 She forgot about her putty exercises. PT-OP-J Posture/Palpation/Skin Start: 09/27/22 09:05 Freq: Status: Active Protocol: Document 09/27/22 08:15 AMB (Rec: 09/27/22 15:53 AMB [id number]) Palpation Assessment Location One Palpation Details tenderness over forearm musculature, not as much into biceps. point tenderness over insertion of both wrist extensors and flexors. PT-OP-K Range of Motion Start: 09/27/22 09:05 Freq: Status: Active Protocol: Document 09/27/22 08:15 AMB (Rec: 09/27/22 15:53 AMB [id number]) Elbow/Forearm Range of Motion Elbow/Forearm Left Elbow/Forearm ROM WFL Yes PT-OP-L Special Tests Start: 09/27/22 09:05 Freq: Status: Active Protocol: Document 09/27/22 08:15 AMB (Rec: 09/27/22 15:53 AMB [id number]) Special Tests Elbow Special Tests Varus- 25 Degrees Test Results - Valgus- 25 Degrees Test Results - Lateral Epicondylitis Extended Test Results + Medial Epicondylitis Test Results + PT-OP-M Strength Start: 09/27/22 09:05 Freq: Status: Active Protocol: Document 09/27/22 08:15 AMB (Rec: 09/27/22 15:53 AMB [id number]) Elbow/Forearm Strength Elbow and Forearm Manual Muscle Testing Left Flexion (C6) 4+ Good+ Extension (C7) 4+ Good+ Wrist Strength Wrist Manual Muscle Testing Left Flexion (C7) 4 Good Extension (C6) 4 Good Comments pain with resisted wrist flexion and extension PT-OP-Q Treatments Start: 09/27/22 09:05 Freq: Status: Active Protocol: Document 10/15/22 11:45 NBM (Rec: 10/15/22 13:23 NBM [id number]) Therapeutic Exercises Supine Exercises supine press Side bilateral Equipment Used 1# Reps/Minutes x10 Comments good form Sitting Exercises putty Sitting Exercise Name squeeze, opposition Side left Reps/Minutes 4' Comments orange biceps Sitting Exercise Name 1. biceps curls x10 ea 2. supin/pronation Side left Resistance AROM>1# Reps/Minutes x10 ea Comments supination, pronation, neutral wrist extensor stretch Side left Reps/Minutes 30x2 wrist flexor stretch Side left Reps/Minutes 30x2 Manual Therapy Treatment Soft Tissue Mobilization 1 Body Location L wrist flexors/extensors, biceps Mobilization Type Myofascial Release,Rolling Intensity/Depth Moderate Body Position Sitting Comments LUE supported on pillow Self-Care/Home Management Treatment Education Patient Education Home Exercise Program,Pain Management,Safety Other Education -Reviewed RICE and importance of elevation, icing for swelling and pain management, emphasized REST for healing and pt agrees to reduce use of cell phone and re-implement rosalva to close down phone at bedtime. -Pt considering use of laptop instead of cell phone. Reviewed seated ergonomics and provided ergonomic station HO . PT-OP-R Modalities Start: 09/27/22 09:05 Freq: Status: Active Protocol: Document 10/15/22 11:45 NBM (Rec: 10/15/22 13:23 [facility] [id number]) Hot Pack/Cold Pack Treatment Ice Massage Location L lateral and medial epicondyles, L biceps Patient Position Sitting Treatment Duration (minutes) 5 Patient Tolerance Good Comments <5 min ea numb PT-OP-T Assessment and Plan Start: 09/27/22 09:05 Freq: Status: Active Protocol: Document 10/15/22 11:45 NBM (Rec: 10/15/22 13:23 [facility] [id number]) Physical Therapy Assessment Goals Two Impairment Strength Short Term Goal (STG) Damaris will show equal decontaminator strength without an 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 STG Duration 5 weeks Laundry Washer Goal (LTG) Damaris will be consistent and independent with a HEP for stretching and strengthening her left arm and forearm. LTG Duration 10 weeks One Impairment Pain Short Term Goal (STG) Damaris will use her phone for 30 minutes with 3/10 pain or less. 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 LTG Duration 10 weeks Assessment Summary Assessment Damaris tolerates warmed putty w/out increase in symptoms when putty. Pt is able to perform biceps curls w/ 1# after ice massage to medial and lateral epicondyles and proximal biceps tendon - long head. Pt expresses improved understanding of importance of Rest and can teach back RICE by end of session. Significant treatment focus on self-care education to promote rest and elevation and reduce pain and swelling. Pt expresses desire to reduce use of cell phone with use of laptop, and to re- implement rosalva to close down phone at bedtime - reviewed seated ergonomics and provided ergonomic station HO. Spouse Balwinder is present throughout treatment session. Physical Therapy Plan Frequency and Duration Frequency of Treatment 2x/Week Duration of treatment (weeks) 10 Plan of Care Start Date 09/27/22 Plan of Care End Date 12/06/22 Therapeutic Interventions Therapeutic Interventions Home Exercise Program,Manual Therapy,Neuromuscular Re- education,Self-Care/Home Management,Therapeutic Activities,Therapeutic Exercises Modalities Cold Pack/Ice Massage,Electric Stimulation,Iontophoresis, Ultrasound Other Therapeutic Interventions ionto with dexamethasone Next Visit Focus/Plan Next Note Type Treatment Note Next Visit Plan Asses response to last treatment, Provide RICE HO, consider cross-friction to tendon insertions at med/lat epicondyles POC: begin with stretching, reduce inflammation, ice massage, kinesiotape. Then progress strengthening as tolerated.
--- NOTE | 2022-10-19 12:33 | PT.OTN ---
Current Diagnoses Pain in left elbow (10/19/22) Physical Therapy Treatment Note PT-OP-A Visit Information Start: 09/27/22 09:05 Freq: Status: Active Protocol: Document 10/19/22 11:20 NBM (Rec: 10/19/22 12:33 NB [id number]) Out-Patient Physical Therapy Visit Information Visit Information Visit Type Treatment Note Visit Start Time 11:20 Visit Stop Time 12:00 Total Visit Minutes 40 Visit Number 5 Number of LABORER HEADING Visits 3 PT-OP-B Current Condition Start: 09/27/22 09:05 Freq: Status: Active Protocol: Document 09/27/22 09:05 AMB (Rec: 09/27/22 09:38 AMB [id number]) Current Condition History of Current Condition Onset Date March 2022 Current Complaints L elbow pain History of Current Condition Used to lift weights but has been unable since March due to elbow pain. No falls/trauma, more insidious onset. Using the phone hurts the elbow. 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 0 pain after manual treatment for a couple days after Dr. Kapoor worked on it, but then the pain came back. Pain is worse at night. Has tried icing and ibuprofen and tylenol which help but didn't want to take too many pills. Overall describes pain as 5/10, can radiate into the forearm and up into the biceps. Pain over medial and lateral epicondyles. 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 The icing is heaven -sent. PT-OP-J Posture/Palpation/Skin Start: 09/27/22 09:05 Freq: Status: Active Protocol: Document 09/27/22 08:15 AMB (Rec: 09/27/22 15:53 AMB [id number]) Palpation Assessment Location One Palpation Details tenderness over forearm musculature, not as much into biceps. point tenderness over insertion of both wrist extensors and flexors. PT-OP-K Range of Motion Start: 09/27/22 09:05 Freq: Status: Active Protocol: Document 09/27/22 08:15 AMB (Rec: 09/27/22 15:53 AMB [id number]) Elbow/Forearm Range of Motion Elbow/Forearm Left Elbow/Forearm ROM WFL Yes PT-OP-L Special Tests Start: 09/27/22 09:05 Freq: Status: Active Protocol: Document 09/27/22 08:15 AMB (Rec: 09/27/22 15:53 AMB [id number]) Special Tests Elbow Special Tests Varus- 25 Degrees Test Results - Valgus- 25 Degrees Test Results - Lateral Epicondylitis Extended Test Results + Medial Epicondylitis Test Results + PT-OP-M Strength Start: 09/27/22 09:05 Freq: Status: Active Protocol: Document 09/27/22 08:15 AMB (Rec: 09/27/22 15:53 AMB [id number]) Elbow/Forearm Strength Elbow and Forearm Manual Muscle Testing Left Flexion (C6) 4+ Good+ Extension (C7) 4+ Good+ Wrist Strength Wrist Manual Muscle Testing Left Flexion (C7) 4 Good Extension (C6) 4 Good Comments pain with resisted wrist flexion and extension PT-OP-Q Treatments Start: 09/27/22 09:05 Freq: Status: Active Protocol: Document 10/19/22 11:20 NBM (Rec: 10/19/22 12:33 NBM [id number]) Therapeutic Exercises Sitting Exercises Supination/Pronation Side left Resistance 1# dumbbell Reps/Minutes x10 Comments Pt reports no discomfort putty Sitting Exercise Name squeeze, opposition Side left Reps/Minutes 4' Comments orange biceps Sitting Exercise Name 1. biceps curls x10 ea 2. supin/pronation Side left Resistance 1# Reps/Minutes x10 ea Comments supination, pronation, neutral wrist extensor stretch Side left Reps/Minutes 30x2 wrist flexor stretch Side left Reps/Minutes 30x2 Manual Therapy Treatment Soft Tissue Mobilization 1 Body Location L wrist flexors/extensors, biceps Mobilization Type Myofascial Release,Rolling Intensity/Depth Moderate Body Position Sitting Comments LUE supported on table Taping epicondylitis Type of Tape Kinesio Tape Comments I strip just distal to epicondyles mimicking tennis elbow strap Self-Care/Home Management Treatment Education Patient Education Home Exercise Program,Pain Management,Safety Other Education Educated pt on self-STM for lateral epicondylitis - HO given. PT-OP-R Modalities Start: 09/27/22 09:05 Freq: Status: Active Protocol: Document 10/19/22 11:20 NBM (Rec: 10/19/22 12:33 [facility] [id number]) Hot Pack/Cold Pack Treatment Ice Massage Location L lateral and medial epicondyles, L biceps Patient Position Sitting Treatment Duration (minutes) 5 Patient Tolerance Good Comments <5 min ea numb PT-OP-T Assessment and Plan Start: 09/27/22 09:05 Freq: Status: Active Protocol: Document 10/19/22 11:20 NBM (Rec: 10/19/22 12:33 [facility] [id number]) Physical Therapy Assessment Goals Two Impairment Strength Short Term Goal (STG) 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 STG Duration 5 weeks Nursing Home Goal (LTG) Damaris will be consistent and independent with a HEP for stretching and strengthening her left arm and forearm. LTG Duration 10 weeks One Impairment Pain Short Term Goal (STG) Damaris will use her phone for 30 minutes with 3/10 pain or less. 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 LTG Duration 10 weeks Assessment Summary Assessment Pt demonstrates improved symptoms, likely after decreasing phone use. Pt reports no discomfort throughout session. Educated pt on self-STM for lateral epicondylitis - HO given. Physical Therapy Plan Frequency and Duration Frequency of Treatment 2x/Week Duration of treatment (weeks) 10 Plan of Care Start Date 09/27/22 Plan of Care End Date 12/06/22 Therapeutic Interventions Therapeutic Interventions Home Exercise Program,Manual Therapy,Neuromuscular Re- education,Self-Care/Home Management,Therapeutic Activities,Therapeutic Exercises Modalities Cold Pack/Ice Massage,Electric Stimulation,Iontophoresis, Ultrasound Other Therapeutic Interventions ionto with dexamethasone Next Visit Focus/Plan Next Note Type Treatment Note Next Visit Plan begin with stretching, reduce inflammation, ice massage, kinesiotape. Then progress strengthening as tolerated.
--- NOTE | 2022-10-22 21:35 | PT.OTN ---
Current Diagnoses Pain in left elbow (10/22/22) Physical Therapy Treatment Note PT-OP-A Visit Information Start: 09/27/22 09:05 Freq: Status: Active Protocol: Document 10/22/22 11:16 AMB (Rec: 10/22/22 12:05 AMB [id number]) Out-Patient Physical Therapy Visit Information Visit Information Visit Type Treatment Note Visit Start Time 11:15 Visit Stop Time 12:00 Total Visit Minutes 40 Visit Number 6 Number of RESIDENT CARE PROVIDER Visits 0 PT-OP-B Current Condition Start: 09/27/22 09:05 Freq: Status: Active Protocol: Document 09/27/22 09:05 AMB (Rec: 09/27/22 09:38 AMB [id number]) Current Condition History of Current Condition Onset Date March 2022 Current Complaints L elbow pain History of Current Condition Used to lift weights but has been unable since March due to elbow pain. No falls/trauma, more insidious onset. Using the phone hurts the elbow. 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 0 pain after manual treatment for a couple days after Dr. Kapoor worked on it, but then the pain came back. Pain is worse at night. Has tried icing and ibuprofen and tylenol which help but didn't want to take too many pills. Overall describes pain as 5/10, can radiate into the forearm and up into the biceps. Pain over medial and lateral epicondyles. 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 Has been icing a couple times a day. Feels like pain is centralizing to lateral epicondyle. PT-OP-J Posture/Palpation/Skin Start: 09/27/22 09:05 Freq: Status: Active Protocol: Document 09/27/22 08:15 AMB (Rec: 09/27/22 15:53 AMB [id number]) Palpation Assessment Location One Palpation Details tenderness over forearm musculature, not as much into biceps. point tenderness over insertion of both wrist extensors and flexors. PT-OP-K Range of Motion Start: 09/27/22 09:05 Freq: Status: Active Protocol: Document 09/27/22 08:15 AMB (Rec: 09/27/22 15:53 AMB [id number]) Elbow/Forearm Range of Motion Elbow/Forearm Left Elbow/Forearm ROM WFL Yes PT-OP-L Special Tests Start: 09/27/22 09:05 Freq: Status: Active Protocol: Document 09/27/22 08:15 AMB (Rec: 09/27/22 15:53 AMB [id number]) Special Tests Elbow Special Tests Varus- 25 Degrees Test Results - Valgus- 25 Degrees Test Results - Lateral Epicondylitis Extended Test Results + Medial Epicondylitis Test Results + PT-OP-M Strength Start: 09/27/22 09:05 Freq: Status: Active Protocol: Document 09/27/22 08:15 AMB (Rec: 09/27/22 15:53 AMB [id number]) Elbow/Forearm Strength Elbow and Forearm Manual Muscle Testing Left Flexion (C6) 4+ Good+ Extension (C7) 4+ Good+ Wrist Strength Wrist Manual Muscle Testing Left Flexion (C7) 4 Good Extension (C6) 4 Good Comments pain with resisted wrist flexion and extension PT-OP-Q Treatments Start: 09/27/22 09:05 Freq: Status: Active Protocol: Document 10/22/22 11:15 AMB (Rec: 10/24/22 21:29 AMB [id number]) Gym Equipment Cable Column (Body Solid) Rows Resistance 10 Reps/Time 2x10 Lat Pull Down Resistance 20 Reps/Time 2x10 Therapeutic Exercises Sitting Exercises biceps Sitting Exercise Name 1. biceps curls x10 ea 2. supin/pronation Side left Resistance 1# Reps/Minutes x10 ea Comments supination, pronation, neutral wrist extensor stretch Side left Reps/Minutes 30x2 wrist flexor stretch Side left Reps/Minutes 30x2 Manual Therapy Treatment Soft Tissue Mobilization 1 Body Location L wrist flexors/extensors, biceps Mobilization Type Myofascial Release,Rolling Intensity/Depth Moderate Body Position Sitting Comments LUE supported on table Taping epicondylitis Type of Tape Kinesio Tape Comments I strip just distal to epicondyles mimicking tennis elbow strap PT-OP-R Modalities Start: 09/27/22 09:05 Freq: Status: Active Protocol: Document 10/22/22 11:15 AMB (Rec: 10/24/22 21:29 AMB [id number]) Hot Pack/Cold Pack Treatment Ice Massage Location L lateral and medial epicondyles, L biceps Patient Position Sitting Treatment Duration (minutes) 5 Patient Tolerance Good Comments <5 min ea numb PT-OP-T Assessment and Plan Start: 09/27/22 09:05 Freq: Status: Active Protocol: Document 10/22/22 11:16 AMB (Rec: 10/22/22 12:05 AMB [id number]) Physical Therapy Assessment Goals Two Impairment Strength Short Term Goal (STG) 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 STG Duration 5 weeks Broadcaster Goal (LTG) Damaris will be consistent and independent with a HEP for stretching and strengthening her left arm and forearm. LTG Duration 10 weeks One Impairment Pain Short Term Goal (STG) Damaris will use her phone for 30 minutes with 3/10 pain or less. STG Duration 5 weeks Broadcaster Goal (LTG) Damaris will work on dog training for 1 hour with pain of 1/10 or less. LTG Duration 10 weeks Assessment Summary Assessment Pt tolerated light lifting well. Is hoping to return to the gym soon, so encouraged in gentle return to resistance training. Overall pain is appearing to be centralizing over lateral epicondyle, which is an improvement since eval when it was really throughout the whole upper extremity. Physical Therapy Plan Frequency and Duration Frequency of Treatment 2x/Week Duration of treatment (weeks) 10 Plan of Care Start Date 09/27/22 Plan of Care End Date 12/06/22 Therapeutic Interventions Therapeutic Interventions Home Exercise Program,Manual Therapy,Neuromuscular Re- education,Self-Care/Home Management,Therapeutic Activities,Therapeutic Exercises Modalities Cold Pack/Ice Massage,Electric Stimulation,Iontophoresis, Ultrasound Other Therapeutic Interventions ionto with dexamethasone Next Visit Focus/Plan Next Note Type Treatment Note Next Visit Plan begin with stretching, reduce inflammation, ice massage, kinesiotape. Then progress strengthening as tolerated. Work into return to gym exercise.
--- NOTE | 2022-10-25 13:00 | PT.OTN ---
Current Diagnoses Pain in left elbow (10/25/22) Physical Therapy Treatment Note PT-OP-A Visit Information Start: 09/27/22 09:05 Freq: Status: Active Protocol: Document 10/25/22 12:19 SP (Rec: 10/25/22 13:04 SP [id number]) Out-Patient Physical Therapy Visit Information Visit Information Visit Type Treatment Note Visit Start Time 12:19 Visit Stop Time 13:00 Total Visit Minutes 41 Visit Number 7 Number of KITCHEN RUNNER Visits 1 PT-OP-B Current Condition Start: 09/27/22 09:05 Freq: Status: Active Protocol: Document 09/27/22 09:05 AMB (Rec: 09/27/22 09:38 AMB [id number]) Current Condition History of Current Condition Onset Date March 2022 Current Complaints L elbow pain History of Current Condition Used to lift weights but has been unable since March due to elbow pain. No falls/trauma, more insidious onset. Using the phone hurts the elbow. 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 0 pain after manual treatment for a couple days after Dr. Kapoor worked on it, but then the pain came back. Pain is worse at night. Has tried icing and ibuprofen and tylenol which help but didn't want to take too many pills. Overall describes pain as 5/10, can radiate into the forearm and up into the biceps. Pain over medial and lateral epicondyles. 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 Hoping to return to gym, PT-OP-J Posture/Palpation/Skin Start: 09/27/22 09:05 Freq: Status: Active Protocol: Document 09/27/22 08:15 AMB (Rec: 09/27/22 15:53 AMB [id number]) Palpation Assessment Location One Palpation Details tenderness over forearm musculature, not as much into biceps. point tenderness over insertion of both wrist extensors and flexors. PT-OP-K Range of Motion Start: 09/27/22 09:05 Freq: Status: Active Protocol: Document 09/27/22 08:15 AMB (Rec: 09/27/22 15:53 AMB [id number]) Elbow/Forearm Range of Motion Elbow/Forearm Left Elbow/Forearm ROM WFL Yes PT-OP-L Special Tests Start: 09/27/22 09:05 Freq: Status: Active Protocol: Document 09/27/22 08:15 AMB (Rec: 09/27/22 15:53 AMB [id number]) Special Tests Elbow Special Tests Varus- 25 Degrees Test Results - Valgus- 25 Degrees Test Results - Lateral Epicondylitis Extended Test Results + Medial Epicondylitis Test Results + PT-OP-M Strength Start: 09/27/22 09:05 Freq: Status: Active Protocol: Document 09/27/22 08:15 AMB (Rec: 09/27/22 15:53 AMB [id number]) Elbow/Forearm Strength Elbow and Forearm Manual Muscle Testing Left Flexion (C6) 4+ Good+ Extension (C7) 4+ Good+ Wrist Strength Wrist Manual Muscle Testing Left Flexion (C7) 4 Good Extension (C6) 4 Good Comments pain with resisted wrist flexion and extension PT-OP-Q Treatments Start: 09/27/22 09:05 Freq: Status: Active Protocol: Document 10/25/22 12:19 SP (Rec: 10/25/22 13:04 SP [id number]) Therapeutic Exercises Sitting Exercises tricep ext Sitting Exercise Name Added to HEP (stand) Side left Resistance TB#3 anchored in door Reps/Minutes 2x10 Comments cued elbow close wrist 4 way Sitting Exercise Name added to HEP: flex, ext, pron, sup,UR,RD Side left Resistance 2# DB Reps/Minutes x10 reps each direction Comments cued forearm supported, hand off table, tolerant range, slow eccentrin Supination/Pronation Sitting Exercise Name reviewed HEP seated Side left Resistance 2# dumbbell Reps/Minutes x10 Comments cued pain biceps Sitting Exercise Name added to HEP: (stand) Side left Resistance TB #2 TB(anchored under foot) Reps/Minutes x20 Comments cued can have wrist palm up, thumb up, palm down. Manual Therapy Treatment Soft Tissue Mobilization 1 Body Location L wrist flexors/extensors Mobilization Type Myofascial Release,Strumming, Sustained Pressure,Other Intensity/Depth Moderate Body Position Sitting Comments LUE supported on wedge, seated on table. manual and instruction on self massage and pin w/ wrist flex/ ext/ pron/sup tolerant AROM. Taping epicondylitis Type of Tape Kinesio Tape Skin Inspection intact normal color (wears 4 days then removes give skin a break) Comments Horizontal strip med /lat epicondyle (forgot add biofreeze 10/25) PT-OP-R Modalities Start: 09/27/22 09:05 Freq: Status: Active Protocol: Document 10/22/22 11:15 AMB (Rec: 10/24/22 21:29 AMB [id number]) Hot Pack/Cold Pack Treatment Ice Massage Location L lateral and medial epicondyles, L biceps Patient Position Sitting Treatment Duration (minutes) 5 Patient Tolerance Good Comments <5 min ea numb PT-OP-T Assessment and Plan Start: 09/27/22 09:05 Freq: Status: Active Protocol: Document 10/25/22 12:19 SP (Rec: 10/25/22 13:04 SP [id number]) Physical Therapy Assessment Goals Two Impairment Strength Short Term Goal (STG) 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 STG Duration 5 weeks Prison Goal (LTG) Damaris will be consistent and independent with a HEP for stretching and strengthening her left arm and forearm. LTG Duration 10 weeks One Impairment Pain Short Term Goal (STG) Damaris will use her phone for 30 minutes with 3/10 pain or less. 10/25/22: progressin min 2/ 10 pain L elbow. STG Duration 5 weeks progressin10/25/22 Felt Puller Goal (LTG) Damaris will work on dog training for 1 hour with pain of 1/10 or less. LTG Duration 10 weeks Assessment Summary Assessment Pt good tolerance to increase resistance seated 6 way wrist, added bicep/tricep standing TB with no adverse pain affects, good understanding of set up and form. Also understanding self massage and pin muscle add wrist flex/ext /pron/sup AROM for decrease tightness active massage with tolerant pressure. Physical Therapy Plan Frequency and Duration Frequency of Treatment 2x/Week Duration of treatment (weeks) 10 Plan of Care Start Date 09/27/22 Plan of Care End Date 12/06/22 Therapeutic Interventions Therapeutic Interventions Home Exercise Program,Manual Therapy,Neuromuscular Re- education,Self-Care/Home Management,Therapeutic Activities,Therapeutic Exercises Modalities Cold Pack/Ice Massage,Electric Stimulation,Iontophoresis, Ultrasound Other Therapeutic Interventions ionto with dexamethasone Next Visit Focus/Plan Next Note Type Treatment Note Next Visit Plan begin with stretching, reduce inflammation, ice massage, kinesiotape. Then progress strengthening as tolerated. Work into return to gym exercise.
--- NOTE | 2022-11-05 15:56 | PT.OTN ---
Current Diagnoses Pain in left elbow (11/05/22) Physical Therapy Treatment Note PT-OP-A Visit Information Start: 09/27/22 09:05 Freq: Status: Active Protocol: Document 11/05/22 11:24 AMB (Rec: 11/05/22 11:57 AMB [id number]) Out-Patient Physical Therapy Visit Information Visit Information Visit Type Treatment Note Visit Start Time 11:15 Visit Stop Time 12:00 Total Visit Minutes 41 Visit Number 8 PT-OP-B Current Condition Start: 09/27/22 09:05 Freq: Status: Active Protocol: Document 09/27/22 09:05 AMB (Rec: 09/27/22 09:38 AMB [id number]) Current Condition History of Current Condition Onset Date March 2022 Current Complaints L elbow pain History of Current Condition Used to lift weights but has been unable since March due to elbow pain. No falls/trauma, more insidious onset. Using the phone hurts the elbow. 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 0 pain after manual treatment for a couple days after Dr. Kapoor worked on it, but then the pain came back. Pain is worse at night. Has tried icing and ibuprofen and tylenol which help but didn't want to take too many pills. Overall describes pain as 5/10, can radiate into the forearm and up into the biceps. Pain over medial and lateral epicondyles. Treatment Goals Patient/Caregiver Goals Reduce pain to train dogs/ use phone/sleep without pain Prior Functional Status Baseline Function- ADL's Independent Baseline Function- Mobility Independent Personal Factors Other Personal Factors That May Effect Anxiety Therapy/Recovery PT-OP-C Subjective Start: 09/27/22 09:05 Freq: Status: Active Protocol: Document 11/05/22 11:24 AMB (Rec: 11/05/22 11:57 AMB [id number]) OP-PT Subjective Patient Comments Patient Comments Pt has been able to return to the gym and that is going well . PT-OP-J Posture/Palpation/Skin Start: 09/27/22 09:05 Freq: Status: Active Protocol: Document 09/27/22 08:15 AMB (Rec: 09/27/22 15:53 AMB [id number]) Palpation Assessment Location One Palpation Details tenderness over forearm musculature, not as much into biceps. point tenderness over insertion of both wrist extensors and flexors. PT-OP-K Range of Motion Start: 09/27/22 09:05 Freq: Status: Active Protocol: Document 09/27/22 08:15 AMB (Rec: 09/27/22 15:53 AMB [id number]) Elbow/Forearm Range of Motion Elbow/Forearm Left Elbow/Forearm ROM WFL Yes PT-OP-L Special Tests Start: 09/27/22 09:05 Freq: Status: Active Protocol: Document 09/27/22 08:15 AMB (Rec: 09/27/22 15:53 AMB [id number]) Special Tests Elbow Special Tests Varus- 25 Degrees Test Results - Valgus- 25 Degrees Test Results - Lateral Epicondylitis Extended Test Results + Medial Epicondylitis Test Results + PT-OP-M Strength Start: 09/27/22 09:05 Freq: Status: Active Protocol: Document 09/27/22 08:15 AMB (Rec: 09/27/22 15:53 AMB [id number]) Elbow/Forearm Strength Elbow and Forearm Manual Muscle Testing Left Flexion (C6) 4+ Good+ Extension (C7) 4+ Good+ Wrist Strength Wrist Manual Muscle Testing Left Flexion (C7) 4 Good Extension (C6) 4 Good Comments pain with resisted wrist flexion and extension PT-OP-Q Treatments Start: 09/27/22 09:05 Freq: Status: Active Protocol: Document 11/05/22 11:15 AMB (Rec: 11/05/22 15:51 AMB [id number]) Therapeutic Exercises Sitting Exercises biceps Sitting Exercise Name added to HEP: (stand) Side left Resistance 5# Reps/Minutes x20 Comments cued can have wrist palm up, thumb up, palm down. wrist extensor stretch Side left Reps/Minutes 30x2 wrist flexor stretch Side left Reps/Minutes 30x2 Standing Exercises body blade Standing Exercise Name shoulder flexion Reps/Minutes 2 min rows Standing Exercise Name bent rows support on plinth Resistance 10# Reps/Minutes 2x10 Other Exercises counter pushup Other Exercise Name too much at this point wall pushup Other Exercise Name cued form, gentle Reps/Minutes 2 PT-OP-R Modalities Start: 09/27/22 09:05 Freq: Status: Active Protocol: Document 10/22/22 11:15 AMB (Rec: 10/24/22 21:29 AMB [id number]) Hot Pack/Cold Pack Treatment Ice Massage Location L lateral and medial epicondyles, L biceps Patient Position Sitting Treatment Duration (minutes) 5 Patient Tolerance Good Comments <5 min ea numb PT-OP-T Assessment and Plan Start: 09/27/22 09:05 Freq: Status: Active Protocol: Document 11/05/22 11:24 AMB (Rec: 11/05/22 11:57 AMB [id number]) Physical Therapy Assessment Goals Two Impairment Strength Short Term Goal (STG) 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 STG Duration MET [facility] Goal (LTG) Damaris will be consistent and independent with a HEP for stretching and strengthening her left arm and forearm. LTG Duration 10 weeks One Impairment Pain Short Term Goal (STG) Damaris will use her phone for 30 minutes with 3/10 pain or less. 10/25/22: progressin min 2/ 10 pain L elbow. STG Duration 5 weeks progressin10/25/22 Jail Goal (LTG) Damaris will work on dog training for 1 hour with pain of 1/10 or less. LTG Duration 10 weeks Assessment Summary Assessment Weightbearing exercises were challenging, but otherwise patient is doing well. Encouraged to continue with gym exercise progression continuing with light weights, to avoid full body weight pushups and tricep presses for now. Physical Therapy Plan Frequency and Duration Frequency of Treatment 2x/Week Duration of treatment (weeks) 10 Plan of Care Start Date 09/27/22 Plan of Care End Date 12/06/22 Therapeutic Interventions Therapeutic Interventions Home Exercise Program,Manual Therapy,Neuromuscular Re- education,Self-Care/Home Management,Therapeutic Activities,Therapeutic Exercises Modalities Cold Pack/Ice Massage,Electric Stimulation,Iontophoresis, Ultrasound Other Therapeutic Interventions ionto with dexamethasone Next Visit Focus/Plan Next Note Type Treatment Note Next Visit Plan Then progress strengthening as tolerated. Work into return to gym exercise.
--- NOTE | 2022-11-17 12:00 | PT.OTN ---
Current Diagnoses Pain in left elbow (11/17/22) Physical Therapy Treatment Note PT-OP-A Visit Information Start: 09/27/22 09:05 Freq: Status: Active Protocol: Document 11/17/22 13:29 AMB (Rec: 11/17/22 13:42 AMB [id number]) Out-Patient Physical Therapy Visit Information Visit Information Visit Type Treatment Note Visit Start Time 13:30 Visit Stop Time 14:15 Total Visit Minutes 45 Visit Number 9 PT-OP-B Current Condition Start: 09/27/22 09:05 Freq: Status: Active Protocol: Document 09/27/22 09:05 AMB (Rec: 09/27/22 09:38 AMB [id number]) Current Condition History of Current Condition Onset Date March 2022 Current Complaints L elbow pain History of Current Condition Used to lift weights but has been unable since March due to elbow pain. No falls/trauma, more insidious onset. Using the phone hurts the elbow. 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 0 pain after manual treatment for a couple days after Dr. Kapoor worked on it, but then the pain came back. Pain is worse at night. Has tried icing and ibuprofen and tylenol which help but didn't want to take too many pills. Overall describes pain as 5/10, can radiate into the forearm and up into the biceps. Pain over medial and lateral epicondyles. Treatment Goals Patient/Caregiver Goals Reduce pain to train dogs/ use phone/sleep without pain Prior Functional Status Baseline Function- ADL's Independent Baseline Function- Mobility Independent Personal Factors Other Personal Factors That May Effect Anxiety Therapy/Recovery PT-OP-C Subjective Start: 09/27/22 09:05 Freq: Status: Active Protocol: Document 11/17/22 13:29 AMB (Rec: 11/17/22 13:42 AMB [id number]) OP-PT Subjective Patient Comments Patient Comments Pt had a flare up after returning to lifting, elbow has been more painful since. PT-OP-J Posture/Palpation/Skin Start: 09/27/22 09:05 Freq: Status: Active Protocol: Document 09/27/22 08:15 AMB (Rec: 09/27/22 15:53 AMB [id number]) Palpation Assessment Location One Palpation Details tenderness over forearm musculature, not as much into biceps. point tenderness over insertion of both wrist extensors and flexors. PT-OP-K Range of Motion Start: 09/27/22 09:05 Freq: Status: Active Protocol: Document 09/27/22 08:15 AMB (Rec: 09/27/22 15:53 AMB [id number]) Elbow/Forearm Range of Motion Elbow/Forearm Left Elbow/Forearm ROM WFL Yes PT-OP-L Special Tests Start: 09/27/22 09:05 Freq: Status: Active Protocol: Document 09/27/22 08:15 AMB (Rec: 09/27/22 15:53 AMB [id number]) Special Tests Elbow Special Tests Varus- 25 Degrees Test Results - Valgus- 25 Degrees Test Results - Lateral Epicondylitis Extended Test Results + Medial Epicondylitis Test Results + PT-OP-M Strength Start: 09/27/22 09:05 Freq: Status: Active Protocol: Document 09/27/22 08:15 AMB (Rec: 09/27/22 15:53 AMB [id number]) Elbow/Forearm Strength Elbow and Forearm Manual Muscle Testing Left Flexion (C6) 4+ Good+ Extension (C7) 4+ Good+ Wrist Strength Wrist Manual Muscle Testing Left Flexion (C7) 4 Good Extension (C6) 4 Good Comments pain with resisted wrist flexion and extension PT-OP-Q Treatments Start: 09/27/22 09:05 Freq: Status: Active Protocol: Document 11/17/22 13:29 AMB (Rec: 11/17/22 13:42 AMB [id number]) Therapeutic Exercises Sitting Exercises wrist extensor stretch Side left Reps/Minutes 30x2 wrist flexor stretch Side left Reps/Minutes 30x2 Standing Exercises rows Standing Exercise Name bent rows support on plinth Resistance 10# Reps/Minutes 2x10 Manual Therapy Treatment Soft Tissue Mobilization 1 Body Location L wrist flexors/extensors Mobilization Type Myofascial Release,Strumming, Sustained Pressure,Other Intensity/Depth Moderate Body Position Sitting Comments LUE supported on wedge, seated on table. manual and instruction on self massage and pin w/ wrist flex/ ext/ pron/sup tolerant AROM. PT-OP-R Modalities Start: 09/27/22 09:05 Freq: Status: Active Protocol: Document 11/17/22 16:01 AMB (Rec: 11/17/22 16:03 AMB [id number]) Ultrasound Therapy Treatment Left Elbow Treatment Duration (minutes) 8 Patient Position Sitting Coupling Medium Ultrasound Gel Frequency Setting (mHz) 1 Intensity Setting (w/cm2) 1.7 PT-OP-T Assessment and Plan Start: 09/27/22 09:05 Freq: Status: Active Protocol: Document 11/17/22 13:29 AMB (Rec: 11/17/22 13:42 AMB [id number]) Physical Therapy Assessment Goals Two Impairment Strength Short Term Goal (STG) Damaris will show equal bone tender strength without an 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 STG Duration MET [facility] Goal (LTG) Damaris will be consistent and independent with a HEP for stretching and strengthening her left arm and forearm. LTG Duration 10 weeks One Impairment Pain Short Term Goal (STG) Damaris will use her phone for 30 minutes with 3/10 pain or less. 10/25/22: progressin min 2/ 10 pain L elbow. 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 LTG Duration 10 weeks Assessment Summary Assessment Damaris had a pain flare up after trying lifts. Pt reported significant pain reduction after manual/ ultrasound and discussion of pain flare and encouraging her to avoid lifts for right now and ease back into them to her exercise regime after she tolerates significant increase in forearm strengthening. Physical Therapy Plan Frequency and Duration Frequency of Treatment 2x/Week Duration of treatment (weeks) 10 Plan of Care Start Date 09/27/22 Plan of Care End Date 12/06/22 Therapeutic Interventions Therapeutic Interventions Home Exercise Program,Manual Therapy,Neuromuscular Re- education,Self-Care/Home Management,Therapeutic Activities,Therapeutic Exercises Modalities Cold Pack/Ice Massage,Electric Stimulation,Iontophoresis, Ultrasound Other Therapeutic Interventions ionto with dexamethasone Next Visit Focus/Plan Next Note Type Treatment Note Next Visit Plan Then progress strengthening as tolerated. Work into return to gym exercise.
--- NOTE | 2022-12-10 11:04 | PT.OPDS ---
Current Diagnoses Pain in left elbow (11/17/22) Visit Care Team Role Provider Type Charleen Hubbard DO Primary Care Provider Physician Specialty: Medical Address: [address] [place] [address], [address], [place], [address] Email: [email or web address] Rudy Kapoor DO Attending Provider Physician Family Provider Referring Provider Specialty: Family Practice Address: [address] [place] [address], [id number] Email: Visit Number Visit Number 9 Discharge Summary PT-OP-B Current Condition Start: 09/27/22 09:05 Freq: Status: Active Protocol: Document 09/27/22 09:05 AMB (Rec: 09/27/22 09:38 AMB [id number]) Current Condition History of Current Condition Onset Date March 2022 Current Complaints L elbow pain History of Current Condition Used to lift weights but has been unable since March due to elbow pain. No falls/trauma, more insidious onset. Using the phone hurts the elbow. 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 0 pain after manual treatment for a couple days after Dr. Kapoor worked on it, but then the pain came back. Pain is worse at night. Has tried icing and ibuprofen and tylenol which help but didn't want to take too many pills. Overall describes pain as 5/10, can radiate into the forearm and up into the biceps. Pain over medial and lateral epicondyles. Treatment Goals Patient/Caregiver Goals Reduce pain to train dogs/ use phone/sleep without pain Prior Functional Status Baseline Function- ADL's Independent Baseline Function- Mobility Independent Personal Factors Other Personal Factors That May Effect Anxiety Therapy/Recovery PT-OP-C Subjective Start: 09/27/22 09:05 Freq: Status: Active Protocol: Document 11/17/22 13:29 AMB (Rec: 11/17/22 13:42 AMB [id number]) OP-PT Subjective Patient Comments Patient Comments Pt had a flare up after returning to lifting, elbow has been more painful since. PT-OP-J Posture/Palpation/Skin Start: 09/27/22 09:05 Freq: Status: Active Protocol: Document 09/27/22 08:15 AMB (Rec: 09/27/22 15:53 AMB [id number]) Palpation Assessment Location One Palpation Details tenderness over forearm musculature, not as much into biceps. point tenderness over insertion of both wrist extensors and flexors. PT-OP-K Range of Motion Start: 09/27/22 09:05 Freq: Status: Active Protocol: Document 09/27/22 08:15 AMB (Rec: 09/27/22 15:53 AMB [id number]) Elbow/Forearm Range of Motion Elbow/Forearm Left Elbow/Forearm ROM WFL Yes PT-OP-L Special Tests Start: 09/27/22 09:05 Freq: Status: Active Protocol: Document 09/27/22 08:15 AMB (Rec: 09/27/22 15:53 AMB [id number]) Special Tests Elbow Special Tests Varus- 25 Degrees Test Results - Valgus- 25 Degrees Test Results - Lateral Epicondylitis Extended Test Results + Medial Epicondylitis Test Results + PT-OP-M Strength Start: 09/27/22 09:05 Freq: Status: Active Protocol: Document 09/27/22 08:15 AMB (Rec: 09/27/22 15:53 AMB [id number]) Elbow/Forearm Strength Elbow and Forearm Manual Muscle Testing Left Flexion (C6) 4+ Good+ Extension (C7) 4+ Good+ Wrist Strength Wrist Manual Muscle Testing Left Flexion (C7) 4 Good Extension (C6) 4 Good Comments pain with resisted wrist flexion and extension PT-OP-T Assessment and Plan Start: 09/27/22 09:05 Freq: Status: Active Protocol: Document 12/10/22 10:46 AMB (Rec: 12/10/22 11:04 AMB [id number]) Physical Therapy Assessment Goals Two Impairment Strength Short Term Goal (STG) 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 STG Duration MET [facility] Goal (LTG) Damaris will be consistent and independent with a HEP for stretching and strengthening her left arm and forearm. LTG Duration MET One Impairment Pain Short Term Goal (STG) Damaris will use her phone for 30 minutes with 3/10 pain or less. STG Duration MET [facility] Goal (LTG) Damaris will work on dog training for 1 hour with pain of 1/10 or less. LTG Duration MET Assessment Summary Assessment Pt reports that she is doing very well, is ready for discharge, does sometimes have pain but then ices and does her exercises and then pain is managed. Physical Therapy Plan Therapeutic Interventions Therapeutic Interventions Home Exercise Program,Manual Therapy,Neuromuscular Re- education,Self-Care/Home Management,Therapeutic Activities,Therapeutic Exercises Modalities Cold Pack/Ice Massage,Electric Stimulation,Iontophoresis, Ultrasound Other Therapeutic Interventions ionto with dexamethasone Next Visit Focus/Plan Next Note Type Treatment Note
--- NOTE | 2023-01-09 10:35 | PT.OPDS ---
Current Diagnoses Pain in left elbow (11/17/22) Visit Care Team Role Provider Type Charleen Hubbard DO Primary Care Provider Physician Specialty: Medical Address: [address] [place] [address], [address], [place], [address] Email: [email or web address] Rudy Kapoor DO Attending Provider Physician Family Provider Referring Provider Specialty: Family Practice Address: [address] [place] [address], [id number] Email: Visit Number Visit Number 9 Discharge Summary PT-OP-B Current Condition Start: 09/27/22 09:05 Freq: Status: Active Protocol: Document 09/27/22 09:05 AMB (Rec: 09/27/22 09:38 AMB [id number]) Current Condition History of Current Condition Onset Date March 2022 Current Complaints L elbow pain History of Current Condition Used to lift weights but has been unable since March due to elbow pain. No falls/trauma, more insidious onset. Using the phone hurts the elbow. 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 0 pain after manual treatment for a couple days after Dr. Kapoor worked on it, but then the pain came back. Pain is worse at night. Has tried icing and ibuprofen and tylenol which help but didn't want to take too many pills. Overall describes pain as 5/10, can radiate into the forearm and up into the biceps. Pain over medial and lateral epicondyles. Treatment Goals Patient/Caregiver Goals Reduce pain to train dogs/ use phone/sleep without pain Prior Functional Status Baseline Function- ADL's Independent Baseline Function- Mobility Independent Personal Factors Other Personal Factors That May Effect Anxiety Therapy/Recovery PT-OP-C Subjective Start: 09/27/22 09:05 Freq: Status: Active Protocol: Document 11/17/22 13:29 AMB (Rec: 11/17/22 13:42 AMB [id number]) OP-PT Subjective Patient Comments Patient Comments Pt had a flare up after returning to lifting, elbow has been more painful since. PT-OP-J Posture/Palpation/Skin Start: 09/27/22 09:05 Freq: Status: Active Protocol: Document 09/27/22 08:15 AMB (Rec: 09/27/22 15:53 AMB [id number]) Palpation Assessment Location One Palpation Details tenderness over forearm musculature, not as much into biceps. point tenderness over insertion of both wrist extensors and flexors. PT-OP-K Range of Motion Start: 09/27/22 09:05 Freq: Status: Active Protocol: Document 09/27/22 08:15 AMB (Rec: 09/27/22 15:53 AMB [id number]) Elbow/Forearm Range of Motion Elbow/Forearm Left Elbow/Forearm ROM WFL Yes PT-OP-L Special Tests Start: 09/27/22 09:05 Freq: Status: Active Protocol: Document 09/27/22 08:15 AMB (Rec: 09/27/22 15:53 AMB [id number]) Special Tests Elbow Special Tests Varus- 25 Degrees Test Results - Valgus- 25 Degrees Test Results - Lateral Epicondylitis Extended Test Results + Medial Epicondylitis Test Results + PT-OP-M Strength Start: 09/27/22 09:05 Freq: Status: Active Protocol: Document 09/27/22 08:15 AMB (Rec: 09/27/22 15:53 AMB [id number]) Elbow/Forearm Strength Elbow and Forearm Manual Muscle Testing Left Flexion (C6) 4+ Good+ Extension (C7) 4+ Good+ Wrist Strength Wrist Manual Muscle Testing Left Flexion (C7) 4 Good Extension (C6) 4 Good Comments pain with resisted wrist flexion and extension PT-OP-T Assessment and Plan Start: 09/27/22 09:05 Freq: Status: Active Protocol: Document 01/09/23 10:34 AMB (Rec: 01/09/23 10:35 AMB [id number]) Physical Therapy Assessment Goals Two Impairment Strength Short Term Goal (STG) 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 STG Duration MET [facility] Goal (LTG) Damaris will be consistent and independent with a HEP for stretching and strengthening her left arm and forearm. LTG Duration MET One Impairment Pain Short Term Goal (STG) Damaris will use her phone for 30 minutes with 3/10 pain or less. STG Duration MET [facility] Goal (LTG) Damaris will work on dog training for 1 hour with pain of 1/10 or less. LTG Duration MET Assessment Summary Assessment Pt called into clinic to ask if she needed to come to any more appointments, stating htat she had been able to return ot the gym and was not having any pain. Discussed case with patient and felt patient was ready for d/c. Physical Therapy Plan Discharge Physical Therapy Discharge Reasons Goals Met
== END 2023-01-10 11:19 | disposition home or self-care (01) ==
LOC: PHYS 13:00
PROVIDERS: Family Provider Family Medicine; PCP Family Medicine; Referring Provider Family Medicine; Visit Provider Family Medicine
DX: M25.522 Pain in left elbow (principal)
CPT/HCPCS: 97035; 97110; 97140; 97161; 97535

== ENCOUNTER → 2023-01-05 09:20 | Outpatient (CLI) | payer OTHER, SELFPAY ==
--- NOTE | 2023-01-05 09:21 | DI.MG.S_ITS ---
BILATERAL DIGITAL DIAGNOSTIC MAMMOGRAM 3D/2D: 01/05/2023 CLINICAL: Baseline. Left brast pain. No prior exams were available for comparison. Both breasts are heterogeneously dense, which may obscure small masses (category c / 51-75% glandular tissue). No significant masses, calcifications, or other findings are seen in either breast. IMPRESSION: NEGATIVE There is no mammographic abnormality seen in the left breast to correspond with the diffuse intermittent breast pain, however, clinical followup is recommended. There is no mammographic evidence of malignancy. A 1 year screening mammogram is recommended. Based on the Tyrer Cuzick model (a risk assessment model) the patient's lifetime risk is 8.3% and her 10 year risk is 1.1%. According to the ACR, ACS, and NCCN guidelines, an annual breast MRI exam along with mammogram is recommended if the patient's lifetime risk is 20% or greater. This exam was interpreted at Station ID: [id number]. NOTE: For mammograms, a report in lay terms will be sent to the patient. Approximately 15% of breast malignancies will not be visualized mammographically. In the management of a palpable breast mass, a negative mammogram must not discourage biopsy of a clinically suspicious lesion. Electronically Signed By: Mireille burden/:01/05/2023 14:19:16 letter sent: Clinical Evaluation ACR BI-RADS Category 1: Negative [id number]
== END ==
PROVIDERS: Family Provider Family Medicine; PCP Family Medicine; Referring Provider Nurse Practitioner; Visit Provider Nurse Practitioner
DX: N63.0 Unspecified lump in unspecified breast (principal); N64.4 Mastodynia
CPT/HCPCS: 77066; G0279

== ENCOUNTER 2023-01-09 15:49 | Emergency (ER) | payer OTHER, SELFPAY ==
[2023-01-09 16:02] VITALS: BP 121/73; PULSE 67; RESP 20; TEMP 36.4; O2SAT 99; BMI 28.3
--- NOTE | 2023-01-09 16:11 | DI.RAD.S_ITS ---
PROCEDURE: XR HAND RT MIN 3V INDICATIONS: hand got caught in dog leash TECHNIQUE: 3 views of the hand(s) acquired. COMPARISON: None. FINDINGS: Bones: No fractures or dislocations. Carpal bones are normally aligned. No suspicious bony lesions. Soft tissues: No suspicious soft tissue calcifications. IMPRESSION: No displaced fractures are seen on these plain films Dictated by: Hu Peralta M.D. on 01/09/2023 at 15:47 Approved by: Hu Peralta M.D. on 01/09/2023 at 15:48
--- NOTE | 2023-01-09 18:29 | ED.UPPEXIN ---
HPI - Extremity Injury (Upper) General Chief Complaint: Extremity Injury, Upper Stated Complaint: R hand pain, caught in dog leash Time Seen by Provider: 01/09/23 17:57 Source: patient Mode of arrival: Family Vehicle History of Present Illness HPI narrative: Patient is a healthy 42-year-old female who presents with right hand pain and injury. 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 No other injury. Related Data Home Medications Medication Instructions Recorded Confirmed clonazepam 0.5 mg tablet (Klonopin) 0.25 mg PO BEDTIME 09/16/22 11/30/22 Allergies Allergy/AdvReac Type Severity Reaction Status Date / Time No Known Drug Allergies Allergy Verified 01/09/23 16:10 Patient History Medical History Anxiety Left elbow pain Upper extremity somatic dysfunction Urinary tract infection symptoms Surgical History Anesthesia History of shoulder surgery (~02/2020) History of tubal ligation (~2002) Family History Father Brain aneurysm Social History Smoking Status: Current every day smoker Smoking Status: Current every day smoker tobacco type: cigarettes and vaping alcohol intake frequency: 0-2 drinks per day Substance Use Type: former substance user and methamphetamine Exam Initial Vital Signs Initial Vital Signs: Vital Signs Temperature 97.6 F 01/09/23 16:02 Pulse Rate 67 01/09/23 16:02 Respiratory Rate 20 01/09/23 16:02 Blood Pressure 121/73 01/09/23 16:02 Pulse Oximetry 99 01/09/23 16:02 Oxygen Delivery Method Room Air 01/09/23 16:02 GENERAL: Well-appearing, well-nourished and in no acute distress. CARDIOVASCULAR: peripheral pulses in tact, cap refill <2 sec RESPIRATORY: No respiratory distress, speaks in full sentences without difficult EXTREMITIES: Normal range of motion, no clubbing or edema. Neurovascularly intact Right-hand no obvious swelling erythema, able to add and adduct fingers wrist good flexion and extension distal radial pulses intact cap refill less than 2 seconds NEUROLOGICAL: Cranial nerves II through XII grossly intact. Normal gait and speech. SKIN: Warm, dry, no petechiae, no rashes or lesions. Course Orders Ordered: ED Orders 01/09/23 16:11 XR hand RT min 3V Stat Vital Signs Vital signs: Vital Signs - 8 hr 01/09/23 16:02 01/09/23 18:51 Temperature 97.6 F Pulse Rate 67 62 Respiratory Rate 20 18 Blood Pressure 121/73 116/56 L Pulse Oximetry 99 98 Oxygen Delivery Method Room Air Room Air MDM - Extremity Injury (Upper) Imaging Data Extremity x-ray #1: Radiologist's Impression: PROCEDURE:? XR HAND RT MIN 3V ? INDICATIONS:? hand got caught in dog leash ? TECHNIQUE:? 3 views of the hand(s) acquired.? ? COMPARISON:? None. ? FINDINGS:? ? Bones:? No fractures or dislocations.? Carpal bones are normally aligned.? No suspicious bony lesions.? ? Soft tissues:? No suspicious soft tissue calcifications.? ? ? IMPRESSION:? No displaced fractures are seen on these plain films ? ? Dictated by: Hu Peralta M.D. on 01/09/2023 at 15:47 ?? [facility] Narrative Medical decision making narrative: Patient has minor injury to her hand x-ray is negative. She is offered pain medicine but declines at this time. She will just take ice Tylenol and Motrin. Discharge Plan Departure Patient Disposition: Home Clinical Impression: Sprain of hand, right Instructions: DI for Hand Pain Activity Restrictions/Additional Instructions: *You have been diagnosed with right hand sprain *What to do: At this time no evidence of fracture. Expect to be to be sore for the next couple of days elevate and ice as needed *Continue to take medications as directed Tylenol 1000 mg every 6 hours if needed for [id number] pain Ibuprofen 600 every 6 hours if needed for [id number] pain *Follow up with your primary care provider in 2-3 days or call [phone] *Return to ER if you should have increasing pain swelling redness or any new, worsening or concerning symptoms Prescriptions: No Action clonazepam [Klonopin] 0.5 mg tablet 0.25 mg PO BEDTIME Rx Instructions: administer 30 minutes before bedtime Referrals: Charleen Hubbard DO [Primary Care Provider] - Stand Alone Forms: Patient Portal/API
[2023-01-09 18:51] VITALS: BP 116/56; PULSE 62; RESP 18; O2SAT 98
== END 2023-01-09 18:52 | disposition home or self-care (01) ==
PROVIDERS: Emergency Provider Emergency Medicine; Family Provider Family Medicine; PCP Family Medicine
DX: S63.91XA Sprain of unspecified part of right wrist and hand, initial encounter (principal); W49.09XA Other specified item causing external constriction, initial encounter
CPT/HCPCS: 73130; 99283

== ENCOUNTER 2023-01-20 13:28 | Emergency (ER) | payer OTHER, SELFPAY ==
[2023-01-20 13:41] VITALS: BP 116/66; PULSE 66; RESP 20; TEMP 36.7; O2SAT 99; BMI 28.3
--- NOTE | 2023-01-20 15:57 | ED.BACK ---
HPI - Back Pain/Injury <Jimy Monae PA-C - Last Filed: 01/20/23 17:15> General Chief Complaint: Back Pain/Injury Stated Complaint: did something to her back Time Seen by Provider: 01/20/23 13:33 Source: patient History of Present Illness HPI Narrative: This is a 42-year-old female presents to the emergency department complaining of right-sided thoracic back pain after twisting while holding a box and hearing a ?pop? noise. She states some initial pain to the back right after the accident but states that the pain has been worsening and states that she can ?barely move?. Denies any upper extremity weakness, urinary or bowel incontinence, unilateral lower extremity weakness, saddle paresthesia, or any other concerning signs or symptoms. Related Data Home Medications Medication Instructions Recorded Confirmed clonazepam 0.5 mg tablet (Klonopin) 0.25 mg PO BEDTIME 09/16/22 11/30/22 Previous Rx's Medication Instructions Recorded cyclobenzaprine 5 mg tablet 5 mg PO TID PRN muscle spasm #20 01/20/23 tabs Allergies Allergy/AdvReac Type Severity Reaction Status Date / Time No Known Drug Allergies Allergy Verified 01/20/23 13:47 Review of Systems <Jimy Monae PA-C - Last Filed: 01/20/23 17:15> Review of Systems Narrative: GENERAL: Denies chills, fatigue, malaise, fever, sweats. HEENT: Denies sinus pain, ear pain, sore throat, difficulty swallowing, dizziness. RESPIRATORY: Denies dyspnea, cough, wheezing, hemoptysis, sputum. CARDIOVASCULAR: Denies chest pain, palpitations, orthopnea, edema, GASTROINTESTINAL: Denies nausea, vomiting, abdominal pain, diarrhea, constipation, melena. : Denies dysuria, frequency, incontinence, hematuria, urinary retention. MUSCULOSKELETAL: Reports right-sided thoracic back pain SKIN: Denies rash, skin lesions, or other NEUROLOGIC: Denies weakness, headache, numbness, change in speech, confusion, seizures, incoordination. PSYCHIATRIC: No concerning psychosocial issues. 12 point review of systems is negative except for those stated above Patient History <REEMA Hartley Last Filed: 01/20/23 17:15> Medical History Anxiety Left elbow pain Upper extremity somatic dysfunction Urinary tract infection symptoms Surgical History Anesthesia History of shoulder surgery (~02/2020) History of tubal ligation (~2002) Family History Father Brain aneurysm Social History Smoking Status: Current every day smoker Smoking Status: Current every day smoker tobacco type: cigarettes and vaping alcohol intake frequency: 0-2 drinks per day Substance Use Type: former substance user and methamphetamine Exam <Jimy Monae PA-C - Last Filed: 01/20/23 17:15> Narrative Exam Narrative: GENERAL: Well-developed patient, in mild distress. HEAD: Atraumatic. Normocephalic. EYES: Pupils equal round and reactive. Extraocular motions intact. No scleral icterus. No injection or drainage. ENT: Nose without bleeding, purulent drainage. Throat without erythema, tonsillar hypertrophy or exudate. Airway patent. NECK: Trachea midline. Non tender EXTREMITIES: No edema or joint tenderness. BACK: Tenderness to palpation to the paraspinal muscles of the thoracic spine. No midline tenderness palpation. NEURO: AOx3. SKIN: No rash or erythema of visible areas Initial Vital Signs Initial Vital Signs: Vital Signs Temperature 98.1 F 01/20/23 13:41 Pulse Rate 66 01/20/23 13:41 Respiratory Rate 20 01/20/23 13:41 Blood Pressure 116/66 01/20/23 13:41 Pulse Oximetry 99 01/20/23 13:41 Oxygen Delivery Method Room Air 01/20/23 13:41 <Tiana Balderas DO - Last Filed: 01/21/23 09:41> Initial Vital Signs Initial Vital Signs: Vital Signs Temperature 98.1 F 01/20/23 13:41 Pulse Rate 66 01/20/23 13:41 Respiratory Rate 20 01/20/23 13:41 Blood Pressure 116/66 01/20/23 13:41 Pulse Oximetry 99 01/20/23 13:41 Oxygen Delivery Method Room Air 01/20/23 13:41 Course <Jimy Monae PA-C - Last Filed: 01/20/23 17:15> Orders Ordered: Discontinued Medications Ketorolac Tromethamine (Ketorolac 30 Mg/Ml Vial) 15 mg IM NOW ONE Stop: 01/20/23 15:57 Last Admin: 01/20/23 16:05 Dose: 15 mg Documented By: RITESH Vital Signs Vital signs: Vital Signs - 8 hr 01/20/23 13:41 01/20/23 16:21 Temperature 98.1 F Pulse Rate 66 58 L Respiratory Rate 20 Blood Pressure 116/66 106/58 L Pulse Oximetry 99 98 Oxygen Delivery Method Room Air Room Air <Tiana Balderas DO - Last Filed: 01/21/23 09:41> Orders Ordered: Discontinued Medications Ketorolac Tromethamine (Ketorolac 30 Mg/Ml Vial) 15 mg IM NOW ONE Stop: 01/20/23 15:57 Last Admin: 01/20/23 16:05 Dose: 15 mg Documented By: RITESH Vital Signs Vital signs: Vital Signs - 8 hr 01/20/23 13:41 01/20/23 16:21 Temperature 98.1 F Pulse Rate 66 58 L Respiratory Rate 20 Blood Pressure 116/66 106/58 L Pulse Oximetry 99 98 Oxygen Delivery Method Room Air Room Air MDM - Back Pain/Injury <Jimy Monae PA-C - Last Filed: 01/20/23 17:15> MDM Narrative Medical decision making narrative: MDM * differential diagnosis includes but not limited to muscular strain, vertebral fracture, spinal cord injury * Prior records reviewed: Patient has not been here for similar complaints in the past * My lab interpretation: None obtained * My imgaing interpretation: None obtained * Clinical Decision Rules/Scores evaluated: None * Independent discussions with: None ED Course: This is a 42-year-old female presents emergency department due to suspected thoracic muscular sprain. She denies any concerning symptoms such as upper extremity weakness, lower extremity weakness, saddle paresthesia, fevers, gamma urinary bowel incontinence, or any other concerning signs or symptoms. Patient given a injection of IM Toradol here in the emergency department. She requested the a ?lowest dose? of muscle relaxants as she states she is very susceptible to. Cyclobenzaprine prescribed. Recommended conservative measures suggest physical therapy, light stretching, light activity, ice. Shared Decision Making: Discussed plan with patient who is comfortable with the plan. She would not present with any midline tenderness along concern for any kind of vertebral fracture. Social Considerations: None Disposition: Discharged to home Discharge Plan Departure Patient Disposition: Home Clinical Impression: Back strain Instructions: DI for Back Strain or Sprain Activity Restrictions/Additional Instructions: Thank you for coming to the [facility] Emergency Department today. As we discussed I have low concern for any kind of fracture of your spinal vertebrae. Due to your lack of neurologic symptoms I have low concern for any kind of spinal cord injury as well. I suspect the pain you are experiencing is inflammation of your muscles and tissues. This should improve with the Toradol given please also take the muscle relaxants as prescribed. I recommend light stretching and light movement to help with your pain. I hope you feel better soon. Prescriptions: New cyclobenzaprine 5 mg tablet 5 mg PO TID PRN (Reason: muscle spasm) Qty: 20 0RF No Action clonazepam [Klonopin] 0.5 mg tablet 0.25 mg PO BEDTIME Rx Instructions: administer 30 minutes before bedtime Referrals: Charleen Hubbard DO [Primary Care Provider] - Stand Alone Forms: Patient Portal/API <Tiana Balderas DO - Last Filed: 01/21/23 09:41> Cosign ED Attending Liannaature Attestation: I was immediately available in the department for consultation.
[2023-01-20] MEDS: KETOROLAC 30 MG/ML VIAL 15 MG IM (16:05)
[2023-01-20 16:21] VITALS: BP 106/58; PULSE 58; O2SAT 98
== END 2023-01-20 16:42 | disposition home or self-care (01) ==
PROVIDERS: Emergency Provider Physician Assistant Medical; Family Provider Family Medicine; PCP Family Medicine
DX: S29.012A Strain of muscle and tendon of back wall of thorax, initial encounter (principal); X50.1XXA Overexertion from prolonged static or awkward postures, initial encounter
CPT/HCPCS: 96372; 99283; J1885

== ENCOUNTER 2023-10-21 15:11 | Emergency (ER) | payer OTHER, SELFPAY ==
[2023-10-21 15:31] VITALS: BP 114/79; PULSE 64; RESP 16; TEMP 36.2; O2SAT 100; BMI 28.3
--- NOTE | 2023-10-21 15:46 | ED_ITS ---
HPI - Eye Problem <Jimy Monae PA-C - Last Filed: 10/21/23 16:15> General Chief complaint: Eye Problems Stated complaint: rt eye pain/scratch Time Seen by Provider: 10/21/23 15:36 Source: patient Mode of arrival: Ambulatory History of Present Illness HPI Narrative: This is a 43-year-old female presents emergency department due to right eye pain. Patient was playing around with the son when he passed her binocular bag which opened and reportedly scraped her right eye. She denies any photophobia, pain with extraocular movement, significant eye pain although she reports some kind of scratchiness to her right eye. Denies any erythema around the eye. No changes in vision. Related Data Previous Rx's Medication Instructions Recorded betamethasone dipropionate 0.05 % 1 applic topical BID #45 grams 04/25/23 topical ointment ofloxacin 0.3 % eye drops 1 drp EYE-RIGHT Q6H 7 days #10 mL 10/21/23 Allergies Allergy/AdvReac Type Severity Reaction Status Date / Time No Known Drug Allergies Allergy Verified 10/21/23 15:33 Review of Systems <Jimy Monae PA-C - Last Filed: 10/21/23 16:15> Review of Systems Narrative: GENERAL: Denies chills, fatigue, malaise, fever, sweats. HEENT: Reports right eye discomfort RESPIRATORY: Denies dyspnea, cough, wheezing, hemoptysis, sputum. CARDIOVASCULAR: Denies chest pain, palpitations, orthopnea, edema, GASTROINTESTINAL: Denies nausea, vomiting, abdominal pain, diarrhea, constipation, melena. : Denies dysuria, frequency, incontinence, hematuria, urinary retention. MUSCULOSKELETAL: denies weakness, joint pain, or bony pain SKIN: Denies rash, skin lesions, or other NEUROLOGIC: Denies weakness, headache, numbness, change in speech, confusion, seizures, incoordination. PSYCHIATRIC: No concerning psychosocial issues. 12 point review of systems is negative except for those stated above Patient History <Jimy Monae PA-C - Last Filed: 10/21/23 16:15> Medical History Anxiety Left elbow pain Upper extremity somatic dysfunction Urinary tract infection symptoms Surgical History Anesthesia History of shoulder surgery (~02/2020) History of tubal ligation (~2002) Family History Father Brain aneurysm Social History Smoking Status: Current every day smoker Smoking Status: Current every day smoker tobacco type: cigarettes and vaping alcohol intake frequency: 0-2 drinks per day Substance Use Type: former substance user and methamphetamine Exam <Jimy Monae PA-C - Last Filed: 10/21/23 16:15> Narrative Exam Narrative: GENERAL: Well-developed patient, in mild distress. HEAD: Atraumatic. Normocephalic. EYES: Pupils equal round and reactive. Extraocular motions intact. No scleral icterus. Evidence of superficial abrasion to the right eye. No pain with extraocular movement. No significant erythema to the conjunctiva. No erythema surrounding the orbit. ENT: Nose without bleeding, purulent drainage. Throat without erythema, tonsillar hypertrophy or exudate. Airway patent. NECK: Trachea midline. Non tender EXTREMITIES: No edema or joint tenderness. BACK: Nontender without deformity or crepitance. No flank tenderness. NEURO: AOx3. SKIN: No rash or erythema of visible areas Initial Vital Signs Initial Vital Signs: Vital Signs Temperature 97.2 F L 10/21/23 15:31 Pulse Rate 64 10/21/23 15:31 Respiratory Rate 16 10/21/23 15:31 Blood Pressure 114/79 10/21/23 15:31 Pulse Oximetry 100 10/21/23 15:31 Oxygen Delivery Method Room Air 10/21/23 15:31 <Jack Vargas DO - Last Filed: 10/21/23 16:35> Initial Vital Signs Initial Vital Signs: Vital Signs Temperature 97.2 F L 10/21/23 15:31 Pulse Rate 64 10/21/23 15:31 Respiratory Rate 16 10/21/23 15:31 Blood Pressure 114/79 10/21/23 15:31 Pulse Oximetry 100 10/21/23 15:31 Oxygen Delivery Method Room Air 10/21/23 15:31 Course <REEMA Hartley Last Filed: 10/21/23 16:15> Vital Signs Vital signs: Vital Signs - 8 hr 10/21/23 15:31 Temperature 97.2 F L Pulse Rate 64 Respiratory Rate 16 Blood Pressure 114/79 Pulse Oximetry 100 Oxygen Delivery Method Room Air <Jack Vargas DO - Last Filed: 10/21/23 16:35> Vital Signs Vital signs: Vital Signs - 8 hr 10/21/23 15:31 Temperature 97.2 F L Pulse Rate 64 Respiratory Rate 16 Blood Pressure 114/79 Pulse Oximetry 100 Oxygen Delivery Method Room Air MDM - Eye Problem <Jimy Monae PA-C - Last Filed: 10/21/23 16:15> MDM Narrative Medical decision making narrative: This is a 43-year-old female presents emergency department due to suspected corneal abrasion. She had no pain with extraocular movement and no significant eye pain although she did report some scratches to the right eye. Recommended conservative and supportive care although did prescribe antibiotics in the event that it does appear to become infected with some kind of conjunctivitis. Advised patient to use only if she notices significant erythema or drainage the right eye. No evidence of any foreign bodies. CC: Right eye pain Complicating co-morbidities: None Data collected from: Previous notes Medical records reviewed: Patient was seen here 7 months ago due to back injury. History of anxiety. Differential considered, but not limited to: Corneal abrasion, acute hyphema, conjunctival hemorrhage, acute closed angle closure glaucoma, orbital cellulitis, foreign body Exam documented above, pertinent findings include: Superficial abrasion to the right eye. No evidence of any foreign bodies. No bleeding Lab Test results independently reviewed as above. Pertinent findings: None Indepe Imaging studies independently reviewed: None Scores Used: None MIPS Elements: None Consultations: None Treatments: None Re-evaluations: None Discussion: Discussed plan with the patient was comfortable with the plan Diagnosis: Corneal abrasion Disposition: see below, along with detailed discharge instructions that have been reviewed with patient as well as indications for ED re-evaluation and additional outpatient follow up Discharge Plan Departure Patient Disposition: Home Clinical Impression: Corneal abrasion Instructions: DI for Corneal Abrasion Activity Restrictions/Additional Instructions: Thank you for coming to the [facility] Emergency Department today. As we discussed it appears he has a small corneal abrasion to her right eye. These usually heal over time without any further treatment. You please use ibuprofen as needed for any discomfort. If you begin to develop any redness in your eyes or any purulent drainage you may use the antibiotic eyedrops prescribed. Please refrain from contact use until your eye starts to feel better. I hope you feel better soon. Please follow up with your primary care provider within a week if your symptoms continue. If you do not have a primary care provider please contact the [facility] Resource line at [phone]. They will ask some questions about your medical history and help you get set up with a provider in the community. Prescriptions: New ofloxacin 0.3 % drops 1 drp EYE-RIGHT Q6H 7 Days Qty: 10 0RF No Action betamethasone dipropionate 0.05 % ointment 1 applic topical BID Qty: 45 1RF Rx Instructions: Apply twice daily to affected area until resolved, no longer than 2 weeks Referrals: Charleen Hubbard DO [Primary Care Provider] - Stand Alone Forms: Patient Portal/API ED Sign-out <Jack Vargas DO - Last Filed: 10/21/23 16:35> Cosign ED Attending Cosignature Attestation: Dr Vargas Co-Sign Statement: I was available for consultation during this patient's emergency department visit. This chart is signed by myself for administrative purposes only. I did not have direct contact with this patient during this visit. They were seen independently by the APC.
== END 2023-10-21 16:19 | disposition home or self-care (01) ==
PROVIDERS: Emergency Provider Physician Assistant Medical; Family Provider Family Medicine; PCP Family Medicine
DX: S05.01XA Injury of conjunctiva and corneal abrasion without foreign body, right eye, initial encounter (principal); W22.8XXA Striking against or struck by other objects, initial encounter
CPT/HCPCS: 99281; 99283

== ENCOUNTER → 2023-11-28 09:06 | Outpatient (CLI) | payer OTHER, SELFPAY | PROVIDERS: Family Provider Family Medicine; PCP Family Medicine; Visit Provider Nurse Practitioner Family | DX: J02.9 Acute pharyngitis, unspecified (principal) | CPT/HCPCS: 87070; 87077; 87147 ==

== ENCOUNTER → 2023-12-15 17:06 | Outpatient (CLI) | payer OTHER, SELFPAY | PROVIDERS: Family Provider Family Medicine; PCP Family Medicine; Visit Provider Nurse Practitioner Family | DX: J02.9 Acute pharyngitis, unspecified (principal) | CPT/HCPCS: 87070 ==

== ENCOUNTER 2024-02-29 13:21 | Emergency (ER) | payer OTHER, SELFPAY ==
[2024-02-29 13:25] VITALS: BP 119/65; PULSE 66; RESP 16; TEMP 36.6; O2SAT 99; BMI 30.2
[2024-02-29 13:37] VITALS: PULSE 63; O2SAT 98
--- NOTE | 2024-02-29 13:53 | ED.GENADULT ---
HPI - General Adult General Chief complaint: Dizziness Stated complaint: dizziness everything is spinning Time Seen by Provider: 02/29/24 13:28 Source: patient Mode of arrival: Wheelchair History of Present Illness HPI narrative: 43-year-old female with a history of vertigo back in October who stated that she got much better with the Sarthak maneuver who is here for evaluation of very similar symptoms. States she was getting out of a car when she felt like everything started to spin. She had nausea upon arrival here to the ER. She was not tried any medications. She states she does have history of anxiety and sometimes her panic attack start with a very quick episode of vertigo but this has been more persistent. She denies any vision changes. No headache. No sinus congestion. No sore throat. No chest pain, palpitations. No shortness of breath. No numbness or tingling in her upper and lower extremities. She states that it is positional. When she was sitting in bed with her head straight she states her symptoms are much more tolerable but if she were to change and look at another item or she were to move her head her symptoms would become more pronounced. Related Data Previous Rx's Medication Instructions Recorded clonazepam 0.25 mg disintegrating 0.25 mg PO DAILY PRN anxiety #10 01/13/24 tablet tabs meclizine 25 mg tablet 25 mg PO BID PRN dizziness #20 tabs 02/29/24 Allergies Allergy/AdvReac Type Severity Reaction Status Date / Time No Known Drug Allergies Allergy Verified 01/10/24 14:07 Review of Systems Review of Systems Narrative: See HPI Constitutional Constitutional: Reports system reviewed and no additional complaints, except as documented Cardiovascular Cardiovascular: Reports system reviewed and no additional complaints, except as documented Respiratory Respiratory: Reports system reviewed and no additional complaints, except as documented Integumentary/Breasts Skin/Breast: Reports system reviewed and no additional complaints, except as documented Neurologic Neurologic: Reports system reviewed and no additional complaints, except as documented Hematologic/Lymphatic On Anticoagulants: No Patient History Medical History Anxiety Urinary tract infection symptoms Upper extremity somatic dysfunction Left elbow pain Surgical History Anesthesia History of shoulder surgery (~02/2020) History of tubal ligation (~2002) Family History Father Brain aneurysm Social History Smoking Status: Former smoker Smoking Status: Former smoker tobacco type: cigarettes and vaping alcohol intake frequency: 0-2 drinks per day Substance Use Type: former substance user and methamphetamine Exam Initial Vital Signs Initial Vital Signs: Vital Signs Temperature 97.9 F 02/29/24 13:25 Pulse Rate 66 02/29/24 13:25 Respiratory Rate 16 02/29/24 13:25 Blood Pressure 119/65 02/29/24 13:25 Pulse Oximetry 99 02/29/24 13:25 Oxygen Delivery Method Room Air 02/29/24 13:25 HENDE Head: normal to inspection and normocephalic Eyes Periorbital: periorbital findings normal Pupils: PERRL Resp Effort & Inspection: normal respiratory effort Auscultation: clear to auscultation bilaterally Cardio Rate: regular rate Rhythm: regular rhythm Neuro General: patient alert, patient awake and moves all extremities Cranial Nerves: CN's II-XI intact bilaterally Other: Positive [place]-Hallpike maneuver Extrem General: normal to inspection and capillary refill normal Course Orders Ordered: Discontinued Medications Diazepam (Diazepam 2 Mg Tablet) 2 mg PO NOW ONE Stop: 02/29/24 13:53 Last Admin: 02/29/24 13:57 Dose: 2 mg Documented By: Vital Signs Vital signs: Vital Signs - 8 hr 02/29/24 13:25 Temperature 97.9 F Pulse Rate 66 Respiratory Rate 16 Blood Pressure 119/65 Pulse Oximetry 99 Oxygen Delivery Method Room Air Medical Decision Making [facility] Narrative Medical decision making narrative: I have a very high suspicion that this is peripheral vertigo based on her presentation today. She was given 1 dose of oral Valium and she states that the symptoms have almost completely resolved. She ambulated to the bathroom. I do feel that we can hold on any radiologic studies for now. Will discharge home with a prescription for meclizine. She was given return precautions and follow-up instructions. She expressed understanding and agreement. Discharge Plan Departure Patient Disposition: Home Clinical Impression: Vertigo Instructions: DI for Vertigo Activity Restrictions/Additional Instructions: You can consider looking up the ?Sarthak maneuver?. This can be helpful in making your symptoms better. Use the medication as needed and as directed. Return to the emergency department for new or worsening symptoms. Prescriptions: New meclizine 25 mg tablet 25 mg PO BID PRN (Reason: dizziness) Qty: 20 0RF No Action clonazepam 0.25 mg tablet,disintegrating 0.25 mg PO DAILY PRN (Reason: anxiety) Qty: 10 0RF Referrals: Gabino Dumont ARNP [Primary Care Provider] - Stand Alone Forms: Patient Portal/API
[2024-02-29] MEDS: diazePAM 2 MG TABLET PO (13:57)
[2024-02-29 14:00] VITALS: BP 121/70; PULSE 67; O2SAT 98
== END 2024-02-29 14:47 | disposition home or self-care (01) ==
PROVIDERS: Emergency Provider Emergency Medicine; Family Provider Family Medicine; PCP Registered Nurse Diabetes Educator
DX: R42 Dizziness and giddiness (principal)
CPT/HCPCS: 99283

== ENCOUNTER → 2024-03-03 11:21 | Outpatient (CLI) | payer OTHER, SELFPAY ==
--- NOTE | 2024-03-03 | DI.MG.S_ITS ---
BILATERAL DIGITAL SCREENING MAMMOGRAM 3D/2D WITH CAD: 03/03/2024 CLINICAL: Routine screening. Comparison is made to exam dated: 01/05/2023 mammogram - [facility]. Both breasts are heterogeneously dense, which may obscure small masses (category c / 51-75% glandular tissue). Current study was also evaluated with a Computer Aided Detection (CAD) system. No significant masses, calcifications, or other findings are seen in either breast. There has been no significant interval change. IMPRESSION: NEGATIVE There is no mammographic evidence of malignancy. A 1 year screening mammogram is recommended. Based on the Tyrer Cuzick model (a risk assessment model) the patient's lifetime risk is 8.6% and her 10 year risk is 1.3%. According to the ACR, ACS, and NCCN guidelines, an annual breast MRI exam along with mammogram is recommended if the patient's lifetime risk is 20% or greater. This exam was interpreted at Station ID: [id number]. NOTE: For mammograms, a report in lay terms will be sent to the patient. Approximately 15% of breast malignancies will not be visualized mammographically. In the management of a palpable breast mass, a negative mammogram must not discourage biopsy of a clinically suspicious lesion. Electronically Signed By: Anil lopez/tung:03/05/2024 09:55:38 letter sent: Normal Exam ACR BI-RADS Category 1: Negative 3341F
--- NOTE | 2024-03-03 11:51 | DI.RAD.S_ITS ---
PROCEDURE: XR HIP W PEL IF DONE LT 2V INDICATIONS: eval hip pain, no injury TECHNIQUE: 2 views of the hip were acquired. COMPARISON: None. FINDINGS: Bones: No fractures or dislocations. No suspicious bony lesions. The visualized pelvic ring appears intact. Soft tissues: No suspicious soft tissue calcifications or masses. IUD projects over the pelvis. IMPRESSION: No acute bony abnormality. Dictated by: Jack Augustin M.D. on 03/03/2024 at 11:43 Approved by: Jack Augustin M.D. on 03/03/2024 at 11:43
== END ==
PROVIDERS: Family Provider Family Medicine; PCP Registered Nurse Diabetes Educator; Referring Provider Registered Nurse Diabetes Educator; Visit Provider Registered Nurse Diabetes Educator
DX: Z12.31 Encounter for screening mammogram for malignant neoplasm of breast (principal); R92.333 Mammographic heterogeneous density, bilateral breasts; M25.552 Pain in left hip
CPT/HCPCS: 73502; 77063; 77067

== ENCOUNTER → 2024-03-15 07:15 | Outpatient (CLI) | payer OTHER, SELFPAY ==
[2024-03-15 08:03] LABS: Hematocrit 37.8 % (36-46); Hemoglobin 13.1 g/dL (12.0-16.0); Mean Corpuscular HGB Conc 34.6 % (30-36); Mean Corpuscular Hemoglobin 31.3 PG (26-34); Mean Corpuscular Volume 90.5 fL (80-100); Platelet Count 228 X10^3/uL (150-400); Red Blood Cell Count 4.18 X10^6/uL (4.0-5.2); Red Cell Distribution Width 12.6 % (11.6-14.8); White Blood Cell Count 7.4 X10^3/uL (4.5-11.0)
[2024-03-15 08:35] LABS: Alanine Aminotransferase 14 IU/L (<35); Albumin 4.2 g/dL (3.5-5.0); Albumin Globulin Ratio 1.8 (1.0-2.8); Alkaline Phosphatase 66 U/L (38-126); Aspartate Aminotransferase 20 IU/L (14-36); BUN Creatinine Ratio 15.7 (6-22); Bilirubin Total 0.6 mg/dL (0.2-1.3); Blood Urea Nitrogen 11 mg/dL (7-17); Carbon Dioxide 28 mmol/L (22-32); Chloride 105 mmol/L (98-107); Cholesterol 231 mg/dL (140-199); Estimated Glomerular Filt Rate > 60 mL/min (>60); Globulin 2.4 g/dL (1.7-4.1); Glucose 108 mg/dL (70-100); HDL Cholesterol 84 mg/dL (40-60); HEMOLYSIS < 15 (0-50); LDL Cholesterol Calculated 129 mg/dL (<100); Potassium 4.3 mmol/L (3.4-5.1); Sodium 138 mmol/L (137-145); Total Protein 6.6 g/dL (6.3-8.2); Triglycerides 91 mg/dL (35-150)
[2024-03-15 08:55] LABS: TSH w/ Reflex to FT4 2.57 uIU/mL (0.47-4.68)
== END ==
PROVIDERS: Family Provider Family Medicine; PCP Registered Nurse Diabetes Educator; Referring Provider Registered Nurse Diabetes Educator; Visit Provider Registered Nurse Diabetes Educator
DX: Z00.00 Encounter for general adult medical examination without abnormal findings (principal)
CPT/HCPCS: 36415; 80053; 80061; 84443; 85027

== ENCOUNTER → 2024-05-23 13:33 | Outpatient (CLI) | payer OTHER, SELFPAY | LOC: CAR 13:34 | PROVIDERS: Family Provider Family Medicine; PCP Registered Nurse Diabetes Educator; Referring Provider Physician Assistant; Visit Provider Physician Assistant | DX: R42 Dizziness and giddiness (principal); R00.0 Tachycardia, unspecified; R06.02 Shortness of breath; R07.9 Chest pain, unspecified | CPT/HCPCS: 93246 ==

== ENCOUNTER → 2024-05-24 15:50 | Outpatient (CLI) | payer OTHER, SELFPAY ==
[2024-05-24 17:05] LABS: Appearance Urine UA CLOUDY; Bilirubin Urine UA NEGATIVE (NEGATIVE); Color Urine UA YELLOW; Glucose Urine UA NEGATIVE (Negative); Ketones Urine UA NEGATIVE (NEGATIVE); Leukocyte Esterase Urine UA NEGATIVE (NEGATIVE); Nitrite Urine UA NEGATIVE (Negative); Occult Blood Urine UA 2+ (Negative); Protein Urine UA TRACE (Negative); Specific Gravity Urine UA >=1.030 (1.000-1.035); Urobilinogen Urine UA 0.2 E.U./dL (0.2)
[2024-05-24 17:19] LABS: Amorphous Sediment Urine 3+; Bacteria Urine Many (>30); Culture Indicated Urine Specimen Cultured; RBC Urine 5-10/HPF (0-5/HPF); Squamous Epithelial Cell Urine 5-10 /HPF (0-5/HPF); Urine Volume 10mL (spun); WBC Urine 0-1/HPF (0-5/HPF)
== END ==
PROVIDERS: Family Provider Family Medicine; PCP Registered Nurse Diabetes Educator; Visit Provider Obstetrics & Gynecology
DX: R32 Unspecified urinary incontinence (principal)
CPT/HCPCS: 81001; 87086

== ENCOUNTER → 2024-06-19 17:23 | Outpatient (CLI) | payer OTHER, SELFPAY ==
[2024-06-19 18:13] LABS: Influenza A - CEPHEID Flu A NEGATIVE (NEGATIVE); Influenza B - CEPHEID Flu B NEGATIVE (NEGATIVE); Respiratory Syncytial Virus Negative (Negative)
[2024-06-19 18:16] LABS: COVID-19 CEPHEID 4-PLEX PCR Negative (Negative)
== END ==
PROVIDERS: Family Provider Family Medicine; PCP Registered Nurse Diabetes Educator; Visit Provider Nurse Practitioner Family
DX: R05.1 Acute cough (principal)
CPT/HCPCS: 0241U

== ENCOUNTER 2024-07-12 12:19 | Emergency (ER) | payer OTHER, SELFPAY ==
[2024-07-12 12:30] VITALS: BP 107/57; PULSE 72; RESP 14; TEMP 36.3; O2SAT 98; BMI 29.6
--- NOTE | 2024-07-12 12:34 | DI.RAD.S_ITS ---
PROCEDURE: XR WRIST LT MIN 3V INDICATIONS: lifting: felt pop with pain TECHNIQUE: 4 views of the wrist were acquired. COMPARISON: None. FINDINGS: Bones: No fractures or dislocations. No suspicious bony lesions. Soft tissues: No suspicious soft tissue calcifications. IMPRESSION: No gross acute left wrist fracture or dislocation. Dictated by: Rajeev Shaw M.D. on 07/12/2024 at 13:41 Approved by: Rajeev Shaw M.D. on 07/12/2024 at 13:41
--- NOTE | 2024-07-12 12:36 | ED.UPPEXIN ---
HPI - Extremity Injury (Upper) <Domonique Gaines PA-C - Last Filed: 07/12/24 14:06> General Chief Complaint: Extremity Injury, Upper Stated Complaint: Wrist px Time Seen by Provider: 07/12/24 12:36 Source: patient Mode of arrival: Ambulatory History of Present Illness HPI narrative: Patient is a very pleasant 43-year-old female right-hand dominant who presents to the emergency room department today with complaints of left wrist pain. Patient was laying on the floor at the gym, she was attempting to do glute bridges, she reached over with her left hand to supervisor sunglasses a 25 lb dumbbell off of the ground to place on her hips. Lifting the dumbbell she felt a sudden pop, and had sudden pain in the left wrist. Currently at this time she has increased discomfort and pain with any type of rotational activity in the wrist. She was placed in a sling when she came into the emergency department. She has no other further complaints. Related Data Home Medications Medication Instructions Recorded Confirmed clonazepam 0.25 mg disintegrating 0.25 mg PO DAILY 05/24/24 07/11/24 tablet Previous Rx's Medication Instructions Recorded cephalexin 500 mg capsule 500 mg PO Q6H 7 days #28 caps 07/11/24 mupirocin 2 % topical ointment 1 applic topical TID #22 grams 07/11/24 Allergies Allergy/AdvReac Type Severity Reaction Status Date / Time No Known Drug Allergies Allergy Verified 07/11/24 16:05 Review of Systems <Domonique Gaines PA-C - Last Filed: 07/12/24 14:06> Review of Systems Narrative: Negative except as above Musculoskeletal Comments: Left wrist discomfort and pain Patient History <Domonique Gaines PA-C - Last Filed: 07/12/24 14:06> Medical History Pelvic organ prolapse quantification stage 1 cystocele Dyslipidemia Impaired fasting blood sugar Anxiety Urinary tract infection symptoms Upper extremity somatic dysfunction Left elbow pain Surgical History Anesthesia History of shoulder surgery (~02/2020) History of tubal ligation (~2002) Family History Father Brain aneurysm Social History Smoking Status: Former smoker Smoking Status: Former smoker tobacco type: cigarettes and vaping alcohol intake frequency: 0-2 drinks per day Substance Use Type: former substance user and methamphetamine Exam <Domonique Gaines PA-C - Last Filed: 07/12/24 14:06> Initial Vital Signs Initial Vital Signs: Vital Signs Temperature 97.4 F L 07/12/24 12:30 Pulse Rate 72 07/12/24 12:30 Respiratory Rate 14 07/12/24 12:30 Blood Pressure 107/57 L 07/12/24 12:30 Pulse Oximetry 98 07/12/24 12:30 Oxygen Delivery Method Room Air 07/12/24 12:30 Reviewed Const General: cooperative, healthy appearing, comfortable, well developed, well groomed and in distress (Left wrist pain) Eyes Pupils: PERRL EOM: EOM intact bilaterally Skin Other: Warm pink and dry, no soft tissue swelling, no ecchymosis. Neuro General: patient alert, patient awake, patient oriented x3, oriented and gait normal Cognition: normal cognition Speech: speech normal Gait: normal gait Extrem Other: Bilateral lower extremities, right upper extremities, her range motion, strength, pulses, cap refill is preserved in the upper and lower extremities. Left upper extremity no pain in the shoulder humerus elbow, patient has discomfort and pain in the left wrist. With any type of rotational movement. Cap refill is preserved. Pulses are present. Limited range of motion distal to the wrist due to discomfort and pain. No obvious deformities. No soft tissue swelling. No ecchymosis is noted. <Tracie Miranda DO - Last Filed: 07/13/24 10:21> Initial Vital Signs Initial Vital Signs: Vital Signs Temperature 97.4 F L 07/12/24 12:30 Pulse Rate 72 07/12/24 12:30 Respiratory Rate 14 07/12/24 12:30 Blood Pressure 107/57 L 07/12/24 12:30 Pulse Oximetry 98 07/12/24 12:30 Oxygen Delivery Method Room Air 07/12/24 12:30 Course <Domonique Gaines PA-C - Last Filed: 07/12/24 14:06> Orders Ordered: ED Orders 07/12/24 12:34 XR wrist LT min 3V Stat Vital Signs Vital signs: Vital Signs - 8 hr 07/12/24 12:30 Temperature 97.4 F L Pulse Rate 72 Respiratory Rate 14 Blood Pressure 107/57 L Pulse Oximetry 98 Oxygen Delivery Method Room Air Reviewed <Tracie Miranda DO - Last Filed: 07/13/24 10:21> Orders Ordered: ED Orders 07/12/24 12:34 XR wrist LT min 3V Stat Vital Signs Vital signs: Vital Signs - 8 hr 07/12/24 12:30 Temperature 97.4 F L Pulse Rate 72 Respiratory Rate 14 Blood Pressure 107/57 L Pulse Oximetry 98 Oxygen Delivery Method Room Air MDM - Extremity Injury (Upper) <Domonique Gaines PA-C - Last Filed: 07/12/24 14:06> Imaging Data Extremity x-ray #1: Radiologist's Impression: [address] [address] XRay Report Signed Patient: Damaris Shea MR#: [id number] : 1980 Acct:[id number] Age/Sex: 43 / F Date of Service: 07/12/24 Loc: ED Accession Number: [id number] Procedure: XR wrist LT min 3V Ordering Provider: Domonique Gaines PA-C PROCEDURE: XR WRIST LT MIN 3V INDICATIONS: lifting: felt pop with pain TECHNIQUE: 4 views of the wrist were acquired. COMPARISON: None. FINDINGS: Bones: No fractures or dislocations. No suspicious bony lesions. Soft tissues: No suspicious soft tissue calcifications. IMPRESSION: No gross acute left wrist fracture or dislocation. Dictated by: Rajeev Shaw M.D. on 07/12/2024 at 13:41 Approved by: Rajeev Shaw M.D. on 07/12/2024 at 13:[address] [facility] Narrative Medical decision making narrative: Pleasant 43-year-old female presents to the emergency department with sudden onset of left wrist pain after attempting to lift a 25 lb dumbbell off the floor to place on her hips do glue bridges. No other physical complaints. Presented to the emergency department with left wrist pain. No obvious deformity. Right-hand dominant. Patient was placed In a sling Left wrist x-rays negative for acute fracture Velcro splint ED precautions supportive therapy education Differential diagnosis; left wrist strain, sprain, left distal radius or ulna fracture, Discharge Plan Departure Patient Disposition: Home Clinical Impression: Sprain and strain of wrist Left wrist sprain Qualifiers: Encounter type: initial encounter Qualified Code(s): S63.502A - Unspecified sprain of left wrist, initial encounter Instructions: DI for Wrist Sprain Activity Restrictions/Additional Instructions: Rest, ice, elevation. Wrist splint for comfort. [id number] ibuprofen and Tylenol for discomfort pain sling for comfort. Make sure that you elevate the more it hangs the mortise going to swell. X-ray was negative for any acute fractures. Hope you feel better. Take care herself. Prescriptions: No Action mupirocin 2 % ointment 1 applic topical TID Qty: 22 0RF cephalexin 500 mg capsule 500 mg PO Q6H 7 Days Qty: 28 0RF clonazepam 0.25 mg tablet,disintegrating 0.25 mg PO DAILY Referrals: Gabino Dumont ARNP [Primary Care Provider] - Stand Alone Forms: Patient Portal/API ED Sign-out <Tracie Miranda DO - Last Filed: 07/13/24 10:21> Cosign ED Attending Cosignature Attestation: I was available for consultation.
== END 2024-07-12 14:25 | disposition home or self-care (01) ==
PROVIDERS: Emergency Provider Physician Assistant; Family Provider Family Medicine; PCP Registered Nurse Diabetes Educator
DX: S63.502A Unspecified sprain of left wrist, initial encounter (principal); S66.912A Strain of unspecified muscle, fascia and tendon at wrist and hand level, left hand, initial encounter; X50.0XXA Overexertion from strenuous movement or load, initial encounter; R00.0 Tachycardia, unspecified; R42 Dizziness and giddiness; R06.02 Shortness of breath; R07.9 Chest pain, unspecified
CPT/HCPCS: 73110; 93306; 99283

== ENCOUNTER → 2024-07-12 16:01 | Outpatient (CLI) | payer OTHER, SELFPAY ==
--- NOTE | 2024-07-12 16:20 | DI.ECHO.S_ITS ---
[facility]+ [facility] : : [address] : : [place] : : [id number] : : Phone: [phone] Echocardiogram Report + + :Name: SYDNEY BROOKE Study Date: 07/12/2024 Height: 61 in : :Hospital ReadingLocation: Weight: 157 lb : : Gender: Female BSA: 1.7 m2 : :: 1980 Age: 43 yrs BP: 116/73 mmHg: :Reason For Study: DIZZINESS, SHORTNESS OF BREATH : :Ordering Physician: CONNIE, : :MARIA EUGENIA Montiel Performed By: Conrad Milner : :Referring: MARIA EUGENIA ROSALES : + + Interpretation Summary The ejection fraction is estimated to be 55-60%. Diastolic parameters suggest probable normal left ventricular diastolic function and normal filling pressures. The right ventricle is normal in size and function. No significant valvular abnormalities. Pulmonary artery pressures cannot be estimated because of the lack of a measurable TR jet velocity but the IVC suggests a CVP of around 3 mmHg. Procedure: A two-dimensional transthoracic echocardiogram with color flow and Doppler was performed. The study quality was technically good. There is no prior echocardiogram noted for this patient. The patient was in normal sinus rhythm during the exam. Left Ventricle: The left ventricle is normal in size. There is normal left ventricular wall thickness. There is no ventricular septal defect visualized. The ejection fraction is estimated to be 55-60%. There are no focal wall motion abnormalities. Diastolic parameters suggest probable normal left ventricular diastolic function and normal filling pressures. Right Ventricle: The right ventricle is normal in size and function. Atria: The left atrial size is normal. Right atrial size is normal. There is no Doppler evidence for an atrial septal defect. Mitral Valve: The mitral valve is normal in structure and function. There is trace mitral regurgitation. Aortic Valve: The aortic valve is trileaflet. The aortic valve opens well. There is no aortic valve stenosis. No aortic regurgitation is present. Tricuspid Valve: The tricuspid valve is normal in structure and function. There is trace tricuspid regurgitation. Pulmonary artery pressures cannot be estimated because of the lack of a measurable TR jet velocity but the IVC suggests a CVP of around 3 mmHg. Pulmonic Valve: The pulmonic valve is normal in structure and function. There is trace pulmonic regurgitation. Great Vessels: The aortic root is normal size. The dimensions of the ascending aorta are normal. The pulmonary artery is normal size. The IVC is of normal diameter and collapses greater than 50% with a sniff. This suggests a low right atrial pressure of 3 mm Hg. Pericardium/ Pleura There is no pericardial effusion. There is no pleural effusion. MMode/2D Measurements & Calculations LVIDd: 4.9 cm LVOT diam: 1.9 cm LVIDs: 3.4 cm Ao root diam: 2.2 cm FS: 31.3 % asc Aorta Diam: 2.5 cm EPSS: 0.48 cm Ao Arch Diam (Prox Trans): 1.8 cm IVSd: 0.71 cm LVPWd: 0.71 cm LV rahman. diameter/BSA (cm/m^2): 2.9 LV sys. diameter/BSA (cm/m^2): 2.0 LA A2 area: 21.3 cm2 RA long axis: 5.1 cm LA A4 area: 20.0 cm2 RA area: 14.4 cm2 LA length (vol): 6.3 cm RA vol: 34.2 ml LA vol: 57.5 ml RA : 20.0 ml/m2 LA vol index: 33.7 ml/m2 IVC diam: 2.0 cm RVD1 (basal): 2.9 cm RVD2 (mid): 2.4 cm TAPSE: 2.6 cm Doppler Measurements & Calculations Ao V2 max: 139.4 cm/sec LVOT Max Carlito: 93.5 cm/sec Ao V2 mean: 103.7 cm/sec LV V1 max P.5 mmHg Ao max P.8 mmHg LV V1 VTI: 23.7 cm Ao mean P.6 mmHg AUSTEN(I,D): 1.9 cm2 Ao V2 VTI: 34.3 cm AUSTEN(V,D): 1.9 cm2 sev ratio: 0.69 AUSTEN indexed to BSA (cm^2/m^2): 1.1 MV E max carlito: 82.6 cm/sec TR max carlito: 229.5 cm/sec MV A max carlito: 48.3 cm/sec TR max P.1 mmHg MV E/A: 1.7 PA V2 max: 82.5 cm/sec Med Peak E' Carlito: 9.6 cm/sec PA V2 mean: 56.2 cm/sec E/E' med: 8.6 PA mean P.4 mmHg Lat Peak E' Carlito: 13.4 cm/sec PA pr(Accel): 1.9 mmHg E/E' lat: 6.2 E/e' average: 7.4 MV dec time: 0.31 sec SVLVOT): 65.5 ml Reading Physician:08:05 PM
== END ==
PROVIDERS: Family Provider Family Medicine; PCP Registered Nurse Diabetes Educator; Referring Provider Physician Assistant; Visit Provider Physician Assistant
DX: R42 Dizziness and giddiness (principal); R00.0 Tachycardia, unspecified; R06.02 Shortness of breath; R07.9 Chest pain, unspecified
CPT/HCPCS: 93306

== ENCOUNTER → 2024-09-01 09:55 | Outpatient (CLI) | payer OTHER, SELFPAY | PROVIDERS: Family Provider Family Medicine; PCP Registered Nurse Diabetes Educator; Visit Provider Nurse Practitioner Family | DX: R30.0 Dysuria (principal) | CPT/HCPCS: 87077; 87086; 87186 ==

== ENCOUNTER 2024-09-21 13:31 | Outpatient (RCR) | payer OTHER, SELFPAY ==
--- NOTE | 2024-09-21 18:07 | PT.OIE ---
Current Diagnoses Stiffness of unspecified hip, not elsewhere classified (09/21/24) Sciatica, left side (09/21/24) Muscle weakness (generalized) (09/21/24) Segmental and somatic dysfunction of sacral region (09/21/24) Cystocele, unspecified (09/21/24) Unspecified urinary incontinence (09/21/24) Past Medical History (Last Updated 07/13/24 @ 15:24 by FERNANDA Vega) Anxiety Dyslipidemia Impaired fasting blood sugar Left elbow pain Paroxysmal SVT (supraventricular tachycardia) Pelvic organ prolapse quantification stage 1 cystocele Upper extremity somatic dysfunction Urinary tract infection symptoms Past Surgical History (Last Reviewed 07/13/24 @ 15:20 by FERNANDA Vega) Anesthesia History of shoulder surgery (~02/2020) History of tubal ligation (~2002) Visit Care Team Role Provider Type FERNANDA Vega Primary Care Provider Advanced Bake Room Worker Specialty: Medical Address: [address] [place] [address] Email: [email or web address] Rudy Kapoor DO Family Provider Physician Specialty: Family Practice Address: [address] [place] [id number] Email: Anali Reno MD Attending Provider Physician Referring Provider Specialty: MOTION PICTURE EQUIPMENT SUPERVISOR Address: [address] [place] [address], [id number] Email: [email or web address] Physical Therapy Initial Evaluation PT-OP-A Visit Information Start: 09/02/24 14:44 Freq: Status: Active Protocol: Document 09/21/24 13:53 LRN (Rec: 09/21/24 14:37 LRN [id number]) Out-Patient Physical Therapy Visit Information Visit Information Visit Type Initial Evaluation Visit Start Time 13:53 Visit Stop Time 14:37 Visit Number 1 Evaluation Information Evaluation Date 09/21/24 Precautions Precautions Random Vertigo. PT-OP-B Current Condition Start: 09/02/24 14:44 Freq: Status: Active Protocol: Document 09/21/24 13:53 LRN (Rec: 09/21/24 14:37 LRN [id number]) Current Condition History of Current Condition Onset Date 1997, worsened 6 yrs ago. Current Complaints Random urinary leakage & with cough, sneeze, ex, jumping. History of Current Condition Pt reports having her first child at age 16, and after having kids she had urinary incontinence with cough, sneeze, jumping. She was able to exercise after the first two pregnancies, but after of youngest she was not able to jog. She started to worsen 6 yrs ago and is now leaking randomly. She wears pantiliners every couple hours during the day. She denies urinary leakage with urgency. She states all her births were vaginal and long labors with pushing a lot, and no tearing. She recently started playing softball and has to wear heavy depends like pads. She has bought vaginal wgts, but didn't feel it was helpful . Prior Treatments and Tests None Developmental History Developmental History Pt is 4G3P with 3 vaginal births (kids ages 27, 24, 20). Treatment Goals Patient/Caregiver Goals Pt goal: - eliminate random urinary leakage. - decr need for max incontinent pad when playing baseball. 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 Spouse is in [place] and deployed . Random vertigo. PT-OP-C Subjective Start: 09/02/24 14:44 Freq: Status: Active Protocol: Document 09/21/24 13:53 LRN (Rec: 09/21/24 14:37 N [id number]) Patient Questionnaires Pelvic Pain and Urgency/Frequency Patient Symptom Scale Pelvic Pain Score 13 PT-OP-I Pelvic Floor Start: 09/02/24 14:44 Freq: Status: Active Protocol: Document 09/21/24 13:53 LRN (Rec: 09/21/24 14:37 N [id number]) Pelvic Floor Assessment Urine Other Urinary Symptoms Sometimes feels incomplete emptying. Leakage Size Medium Leakage Cause Cough,Exercise,Lifting,Sneeze Leaks Per Day ? Voiding Frequency ? Nocturia 1-2 Pads Used In 24 Hours 8 Urine Pad Type Panty Liner Bowel Bowel Symptoms Constipation,Uncontrolled Flatulence Bowel Movement Frequency 1x daily Pelvic Clock Pelvic Clock 12-3 Atrophy Prolapse Uterine Prolapse Grade 1 Cystocele Grade 2 Perineal Descent Resting Absent Bearing Present Contraction Ability Voluntary Contraction Absent Voluntary Relaxation Absent Manual Muscle Testing Left 0 Manual Muscle Testing Right 0 Manual Muscle Testing Anterior 0 Manual Muscle Testing Posterior 0 Muscle Endurance (Seconds) 0 Number of Quick Contractions In 10 0 Seconds Comments Pelvic Floor Comments Pt consented to PF external and internal exam. Pt bulges abdomen with PF contraction. PT-OP-J Posture/Palpation/Skin Start: 09/02/24 14:44 Freq: Status: Active Protocol: Document 09/21/24 13:53 LRN (Rec: 09/21/24 14:37 LRN [id number]) Posture Evaluation Position Standing L-Spine Posture Increased Lordosis Shoulder Posture (L) Rounded,(R) Rounded,(R) Forward,(L) Elevated,(R) Elevated Scapula Posture (L) Rotated Up Pelvis Posture (L) PSIS Posterior,(L) PSIS Inferior PT-OP-K Range of Motion Start: 09/02/24 14:44 Freq: Status: Active Protocol: Document 09/21/24 13:53 LRN (Rec: 09/21/24 14:37 LRN [id number]) Lumbar Spine Range of Motion Lumbar Spine Active Degrees Testing Position Standing Flexion 90 Extension 25 Rotation Left 30 Rotation Right 45 Lateral Flexion Left 20 Lateral Flexion Right 10 Hip Goniometric Range of Motion Hip Right Passive Testing Position Supine Internal Rotation 30 External Rotation 50 Left Passive Testing Position Supine Internal Rotation 10 External Rotation 70 PT-OP-M Strength Start: 09/02/24 14:44 Freq: Status: Active Protocol: Document 09/21/24 13:53 LRN (Rec: 09/21/24 14:37 LRN [id number]) Trunk Strength Trunk Manual Muscle Testing Core Stabilization Mild loss of core stability w/ MMT of LE's. Abdominal bulge along rectus diastasis noted during LE MMT. Hip Strength Hip Manual Muscle Testing Right External Rotation 3+ Fair+ Comments Strength is 5/5 except as indicated above. Left Flexion (L2) 4+ Good+ Extension (S1) 3 Fair Abduction 3 Fair Adduction 3+ Fair+ External Rotation 3 Fair Comments Strength is 5/5 except as indicated above. PT-OP-Q Treatments Start: 09/02/24 14:44 Freq: Status: Active Protocol: Document 09/21/24 13:53 LRN (Rec: 09/21/24 14:37 LRN [id number]) Self-Care/Home Management Treatment Education Other Education Discussed results of evaluation, goals, treatment, and plan of care (POC) with pt , discussed attendance/cx/dns policy; pt agreeable to evaluation, goals, treatment, attendance/cx/dns policy and POC. Discussed and educated pt in specifics for completion of in use of Bladder Diary and I/S in tracking for 1 week. Activities Self-Care/Home Management Activities Issued & reviewed Quick Flick Kegels: 10x, 1SH/2SR, 3x/day. PT-OP-T Assessment and Plan Start: 09/02/24 14:44 Freq: Status: Active Protocol: Document 09/21/24 13:53 LRN (Rec: 09/21/24 14:37 LRN [id number]) Physical Therapy Assessment Rehab Potential Rehabilitation Potential Good Evaluation Complexity Number of Personal Factors/Comorbidities 1-2 Number of Body Systems Impaired 4 or More Clinical Presentation at Evaluation Evolving Impairments Impairments Activity Tolerance, Coordination,Posture,ROM,Soft Tissue Mobility,Strength, Transfers Other Impairments Coordination of PF muscles to contract in a proper sequence. Goals Four Impairment Pelvic Organ Prolapse Short Term Goal (STG) Pt will be able to perform a PF contraction in isolation of abdominal bulging and demonstrate transfers with core pressure management. STG Duration 10/26/24 Tire Maker Goal (LTG) Pt will be able to perform a PF contraction with a lifting of PF vs bearing down, for a proper PF contraction. LTG Duration 11/30/24 Three Impairment PF weakness with random urinary incontinence Short Term Goal (STG) Improve PF strength to eliminate random urinary leakage. STG Duration 10/26/24 Tire Maker Goal (LTG) Improve PF strength with pt able to reduce the size of urinary incontinent pad needed when playing baseball. LTG Duration 11/30/24 Two Impairment Sacral positional dysfunction with L sciatic pain Short Term Goal (STG) Pt will demonstrate normal sacral postioning and control positioning with core stabilization exercises. STG Duration 10/26/24 Retirement Goal (LTG) Eliminate L sciatic pain. LTG Duration 11/30/24 One Impairment Lacks appropriate self care HEP. Short Term Goal (STG) Pt will be educated and able to demonstrate proper deep breathing methods for having a bowel mvmt to minimize an increase in core pressure. STG Duration 10/26/24 Tire Maker Goal (LTG) Pt will be independent in a self care HEP for PF strengthening in all positions LTG Duration 11/30/24 Assessment Summary Assessment Pt is a 43 yo female who presents with urinary incontinence due to very weak PF muscles, sacral positional dysfunction, L sciatic pain, postural deviations (lordosis) , L hip weakness and assymetry of hip mobility after a history of 3 vaginal births of long labor time and pushing. It is expected due to the chronicity of her condition, L sciatic pain, and pt not able to be treated with electrical stimulation for PF ms training, it is expected that her PF rehabilitation may require longer time in therapy . The pt will benefit from skilled physical therapy to work towards achieving the above stated goals. Physical Therapy Plan Frequency and Duration Frequency of Treatment 1x/Week Duration of treatment (weeks) 10 Plan of Care Start Date 09/21/24 Plan of Care End Date 11/30/24 Therapeutic Interventions Therapeutic Interventions Home Exercise Program,Manual Therapy,Neuromuscular Re- education,Self-Care/Home Management,Soft Tissue Mobilization,Therapeutic Activities,Therapeutic Exercises Modalities Biofeedback,Cold Pack/Ice Massage,Hot Packs Next Visit Focus/Plan Next Note Type Treatment Note Next Visit Plan Next: Review bladder/bowel diary, pt education in proper Kegel without use of substitute muscles, core pressure management, bowel care with bowel massage. Assess deep breathing and training on proper coordinated breathing with transfers and body mechanics. 2nd visit: Sacral balancing, then PF sEMG for coordination of kegel and adominal tightening. Ther Ex: PF & L hip strengthening, assess DR for abdominal strengthening. Improve mobility: hip L IR, R ER PROM and R ER PROM; & Trunk L rot, R SB. Educate/discuss stool types, foods, water intake, educate & discuss Bowel massage, proper sit to stand, and moving in bed using breathwork and core/ PF stabilization for proper abdominal pressure system,
--- NOTE | 2024-09-21 18:08 | PT.OPPOC ---
Physical, Occupational & Speech Therapy At [facility] Current Diagnoses Stiffness of unspecified hip, not elsewhere classified (09/21/24) Sciatica, left side (09/21/24) Muscle weakness (generalized) (09/21/24) Segmental and somatic dysfunction of sacral region (09/21/24) Cystocele, unspecified (09/21/24) Unspecified urinary incontinence (09/21/24) Visit Care Team Role Provider Type FERNANDA Vega Primary Care Provider Advanced Biology Lecturer Specialty: Medical Address: [address] [place] [address], [id number] Email: [email or web address] Rudy Kapoor DO Family Provider Physician Specialty: Family Practice Address: [address] [place] [id number] Email: Anali Reno MD Attending Provider Physician Referring Provider Specialty: SYRUP MIXER Address: [address] [place] [address], [id number] Email: [email or web address] Plan Of Care PT-OP-B Current Condition Start: 09/02/24 14:44 Freq: Status: Active Protocol: Document 09/21/24 13:53 LRN (Rec: 09/21/24 14:37 LRN [id number]) Current Condition History of Current Condition Onset Date 1997, worsened 6 yrs ago. Current Complaints Random urinary leakage & with cough, sneeze, ex, jumping. History of Current Condition Pt reports having her first child at age 16, and after having kids she had urinary incontinence with cough, sneeze, jumping. She was able to exercise after the first two pregnancies, but after of youngest she was not able to jog. She started to worsen 6 yrs ago and is now leaking randomly. She wears pantiliners every couple hours during the day. She denies urinary leakage with urgency. She states all her births were vaginal and long labors with pushing a lot, and no tearing. She recently started playing softball and has to wear heavy depends like pads. She has bought vaginal wgts, but didn't feel it was helpful . Prior Treatments and Tests None Developmental History Developmental History Pt is 4G3P with 3 vaginal births (kids ages 27, 24, 20). Treatment Goals Patient/Caregiver Goals Pt goal: - eliminate random urinary leakage. - decr need for max incontinent pad when playing baseball. 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 Spouse is in [employer] and deployed . Random vertigo. PT-OP-T Assessment and Plan Start: 09/02/24 14:44 Freq: Status: Active Protocol: Document 09/21/24 13:53 LRN (Rec: 09/21/24 14:37 LRN [id number]) Physical Therapy Assessment Rehab Potential Rehabilitation Potential Good Evaluation Complexity Number of Personal Factors/Comorbidities 1-2 Number of Body Systems Impaired 4 or More Clinical Presentation at Evaluation Evolving Impairments Impairments Activity Tolerance, Coordination,Posture,ROM,Soft Tissue Mobility,Strength, Transfers Other Impairments Coordination of PF muscles to contract in a proper sequence. Goals Four Impairment Pelvic Organ Prolapse Short Term Goal (STG) Pt will be able to perform a PF contraction in isolation of abdominal bulging and demonstrate transfers with core pressure management. STG Duration 10/26/24 Handbag Finisher Goal (LTG) Pt will be able to perform a PF contraction with a lifting of PF vs bearing down, for a proper PF contraction. LTG Duration 11/30/24 Three Impairment PF weakness with random urinary incontinence Short Term Goal (STG) Improve PF strength to eliminate random urinary leakage. STG Duration 10/26/24 Handbag Finisher Goal (LTG) Improve PF strength with pt able to reduce the size of urinary incontinent pad needed when playing baseball. LTG Duration 11/30/24 Two Impairment Sacral positional dysfunction with L sciatic pain Short Term Goal (STG) Pt will demonstrate normal sacral postioning and control positioning with core stabilization exercises. STG Duration 10/26/24 Shelter Goal (LTG) Eliminate L sciatic pain. LTG Duration 11/30/24 One Impairment Lacks appropriate self care HEP. Short Term Goal (STG) Pt will be educated and able to demonstrate proper deep breathing methods for having a bowel mvmt to minimize an increase in core pressure. STG Duration 10/26/24 Handbag Finisher Goal (LTG) Pt will be independent in a self care HEP for PF strengthening in all positions LTG Duration 11/30/24 Assessment Summary Assessment Pt is a 43 yo female who presents with urinary incontinence due to very weak PF muscles, sacral positional dysfunction, L sciatic pain, postural deviations (lordosis) , L hip weakness and assymetry of hip mobility after a history of 3 vaginal births of long labor time and pushing. It is expected due to the chronicity of her condition, L sciatic pain, and pt not able to be treated with electrical stimulation for PF ms training, it is expected that her PF rehabilitation may require longer time in therapy . The pt will benefit from skilled physical therapy to work towards achieving the above stated goals. Physical Therapy Plan Frequency and Duration Frequency of Treatment 1x/Week Duration of treatment (weeks) 10 Plan of Care Start Date 09/21/24 Plan of Care End Date 11/30/24 Therapeutic Interventions Therapeutic Interventions Home Exercise Program,Manual Therapy,Neuromuscular Re- education,Self-Care/Home Management,Soft Tissue Mobilization,Therapeutic Activities,Therapeutic Exercises Modalities Biofeedback,Cold Pack/Ice Massage,Hot Packs Next Visit Focus/Plan Next Note Type Treatment Note Next Visit Plan Next: Review bladder/bowel diary, pt education in proper Kegel without use of substitute muscles, core pressure management, bowel care with bowel massage. Assess deep breathing and training on proper coordinated breathing with transfers and body mechanics. 2nd visit: Sacral balancing, then PF sEMG for coordination of kegel and adominal tightening. Ther Ex: PF & L hip strengthening, assess DR for abdominal strengthening. Improve mobility: hip L IR, R ER PROM and R ER PROM; & Trunk L rot, R SB. Educate/discuss stool types, foods, water intake, educate & discuss Bowel massage, proper sit to stand, and moving in bed using breathwork and core/ PF stabilization for proper abdominal pressure system, Plan of Care Dates Plan of Care Start Date 09/21/24 Plan of Care End Date 11/30/24 Electronically Signed by: Mireille Preciado, PT 09/21/24 [id number] If you are in agreement with this Plan of Care, please return a signed and dated copy. I have reviewed this Plan of Care and certify that the skilled therapy services above are required to meet the patient?s needs. Physician Signature Date Printed Name and Credentials Clinical Instructor Signature Printed Name and Credentials
--- NOTE | 2024-11-05 10:15 | PT.OPDS ---
Current Diagnoses Stiffness of unspecified hip, not elsewhere classified (09/21/24) Sciatica, left side (09/21/24) Muscle weakness (generalized) (09/21/24) Segmental and somatic dysfunction of sacral region (09/21/24) Cystocele, unspecified (09/21/24) Unspecified urinary incontinence (09/21/24) Visit Care Team Role Provider Type FERNANDA Vega Primary Care Provider Advanced Curtain Framer Specialty: Medical Address: [address] [place] [address], [id number] Email: [email or web address] Rudy Kapoor DO Family Provider Physician Specialty: Family Practice Address: [address] [place] [address], [id number] Email: Anali Reno MD Attending Provider Physician Referring Provider Specialty: DRY WALL PLASTERER Address: [address] [place] [address], [id number] Email: [email or web address] Visit Number Visit Number 1 Discharge Summary PT-OP-B Current Condition Start: 09/02/24 14:44 Freq: Status: Active Protocol: Document 09/21/24 13:53 LRN (Rec: 09/21/24 14:37 LRN [id number]) Current Condition History of Current Condition Onset Date 1997, worsened 6 yrs ago. Current Complaints Random urinary leakage & with cough, sneeze, ex, jumping. History of Current Condition Pt reports having her first child at age 16, and after having kids she had urinary incontinence with cough, sneeze, jumping. She was able to exercise after the first two pregnancies, but after of youngest she was not able to jog. She started to worsen 6 yrs ago and is now leaking randomly. She wears pantiliners every couple hours during the day. She denies urinary leakage with urgency. She states all her births were vaginal and long labors with pushing a lot, and no tearing. She recently started playing softball and has to wear heavy depends like pads. She has bought vaginal wgts, but didn't feel it was helpful . Prior Treatments and Tests None Developmental History Developmental History Pt is 4G3P with 3 vaginal births (kids ages 27, 24, 20). Treatment Goals Patient/Caregiver Goals Pt goal: - eliminate random urinary leakage. - decr need for max incontinent pad when playing baseball. 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 Spouse is in [place] and deployed . Random vertigo. PT-OP-C Subjective Start: 09/02/24 14:44 Freq: Status: Active Protocol: Document 09/21/24 13:53 LRN (Rec: 09/21/24 14:37 LRN [id number]) Patient Questionnaires Pelvic Pain and Urgency/Frequency Patient Symptom Scale Pelvic Pain Score 13 PT-OP-I Pelvic Floor Start: 09/02/24 14:44 Freq: Status: Active Protocol: Document 09/21/24 13:53 LRN (Rec: 09/21/24 14:37 LRN [id number]) Pelvic Floor Assessment Urine Other Urinary Symptoms Sometimes feels incomplete emptying. Leakage Size Medium Leakage Cause Cough,Exercise,Lifting,Sneeze Leaks Per Day ? Voiding Frequency ? Nocturia 1-2 Pads Used In 24 Hours 8 Urine Pad Type Panty Liner Bowel Bowel Symptoms Constipation,Uncontrolled Flatulence Bowel Movement Frequency 1x daily Pelvic Clock Pelvic Clock 12-3 Atrophy Prolapse Uterine Prolapse Grade 1 Cystocele Grade 2 Perineal Descent Resting Absent Bearing Present Contraction Ability Voluntary Contraction Absent Voluntary Relaxation Absent Manual Muscle Testing Left 0 Manual Muscle Testing Right 0 Manual Muscle Testing Anterior 0 Manual Muscle Testing Posterior 0 Muscle Endurance (Seconds) 0 Number of Quick Contractions In 10 0 Seconds Comments Pelvic Floor Comments Pt consented to PF external and internal exam. Pt bulges abdomen with PF contraction. PT-OP-J Posture/Palpation/Skin Start: 09/02/24 14:44 Freq: Status: Active Protocol: Document 09/21/24 13:53 LRN (Rec: 09/21/24 14:37 LRN [id number]) Posture Evaluation Position Standing L-Spine Posture Increased Lordosis Shoulder Posture (L) Rounded,(R) Rounded,(R) Forward,(L) Elevated,(R) Elevated Scapula Posture (L) Rotated Up Pelvis Posture (L) PSIS Posterior,(L) PSIS Inferior PT-OP-K Range of Motion Start: 09/02/24 14:44 Freq: Status: Active Protocol: Document 09/21/24 13:53 LRN (Rec: 09/21/24 14:37 LRN [id number]) Lumbar Spine Range of Motion Lumbar Spine Active Degrees Testing Position Standing Flexion 90 Extension 25 Rotation Left 30 Rotation Right 45 Lateral Flexion Left 20 Lateral Flexion Right 10 Hip Goniometric Range of Motion Hip Right Passive Testing Position Supine Internal Rotation 30 External Rotation 50 Left Passive Testing Position Supine Internal Rotation 10 External Rotation 70 PT-OP-M Strength Start: 09/02/24 14:44 Freq: Status: Active Protocol: Document 09/21/24 13:53 LRN (Rec: 09/21/24 14:37 LRN [id number]) Trunk Strength Trunk Manual Muscle Testing Core Stabilization Mild loss of core stability w/ MMT of LE's. Abdominal bulge along rectus diastasis noted during LE MMT. Hip Strength Hip Manual Muscle Testing Right External Rotation 3+ Fair+ Comments Strength is 5/5 except as indicated above. Left Flexion (L2) 4+ Good+ Extension (S1) 3 Fair Abduction 3 Fair Adduction 3+ Fair+ External Rotation 3 Fair Comments Strength is 5/5 except as indicated above. PT-OP-T Assessment and Plan Start: 09/02/24 14:44 Freq: Status: Active Protocol: Document 11/05/24 10:09 LRN (Rec: 11/05/24 10:14 LRN [id number]) Physical Therapy Assessment Goals Four Impairment Pelvic Organ Prolapse Short Term Goal (STG) Pt will be able to perform a PF contraction in isolation of abdominal bulging and demonstrate transfers with core pressure management. STG Duration 10/26/24 (11/05/24: NOT MET GOAL, early DC) [facility]cf Goal (LTG) Pt will be able to perform a PF contraction with a lifting of PF vs bearing down, for a proper PF contraction. LTG Duration 11/30/24 (11/05/24: NOT MET GOAL, early DC) Three Impairment PF weakness with random urinary incontinence Short Term Goal (STG) Improve PF strength to eliminate random urinary leakage. STG Duration 10/26/24 (11/05/24: NOT MET GOAL, early DC) [employer] Par[employer]egal Goal (LTG) Improve PF strength with pt able to reduce the size of urinary incontinent pad needed when playing baseball. LTG Duration 11/30/24 (11/05/24: NOT MET GOAL, early DC) Two Impairment Sacral positional dysfunction with L sciatic pain Short Term Goal (STG) Pt will demonstrate normal sacral postioning and control positioning with core stabilization exercises. STG Duration 10/26/24 (11/05/24: NOT MET GOAL, early DC) Chcf Goal (LTG) Eliminate L sciatic pain. LTG Duration 11/30/24 (11/05/24: NOT MET GOAL, early DC) One Impairment Lacks appropriate self care HEP. Short Term Goal (STG) Pt will be educated and able to demonstrate proper deep breathing methods for having a bowel mvmt to minimize an increase in core pressure. STG Duration 10/26/24 (11/05/24: NOT MET GOAL, early DC) [employer] Par[employer]egal Goal (LTG) Pt will be independent in a self care HEP for PF strengthening in all positions LTG Duration 11/30/24 (11/05/24: NOT MET GOAL, early DC) Assessment Summary Assessment Pt is 44 yo female initially seen 09/21/24 for urinary incontinence due to weak PF muscles. Message received that pt is too busy to attend therapy and will seek new referral when ready to return. Pt cancelled all her remaining appointments. Pt was seen only for her initial evaluation; therefore goals were not met. Pt will be discharged today from physical therapy. Physical Therapy Plan Discharge Physical Therapy Discharge Reasons Patient Request Discharge Comments See assessment above. Thank you for your referral.
== END 2024-11-05 15:00 | disposition home or self-care (01) ==
LOC: PHYS 13:31
PROVIDERS: Family Provider Family Medicine; PCP Registered Nurse Diabetes Educator; Referring Provider Obstetrics & Gynecology; Visit Provider Obstetrics & Gynecology
DX: M62.81 Muscle weakness (generalized) (principal); M25.659 Stiffness of unspecified hip, not elsewhere classified; M99.04 Segmental and somatic dysfunction of sacral region; M54.32 Sciatica, left side; R32 Unspecified urinary incontinence; N81.10 Cystocele, unspecified
CPT/HCPCS: 97162; 97535

== ENCOUNTER → 2024-09-25 10:49 | Outpatient (CLI) | payer OTHER, SELFPAY ==
[2024-09-27 22:06] LABS: Tissue Transglutaminase IgA <2 U/mL (0-3); Tissue Transglutaminase IgG <2 U/mL (0-5)
== END ==
PROVIDERS: Family Provider Family Medicine; PCP Registered Nurse Diabetes Educator; Referring Provider Internal Medicine Gastroenterology; Visit Provider Internal Medicine Gastroenterology
DX: K59.00 Constipation, unspecified (principal); R19.7 Diarrhea, unspecified
CPT/HCPCS: 36415; 83516

== ENCOUNTER → 2024-09-27 08:23 | Outpatient (CLI) | payer OTHER, SELFPAY ==
[2024-09-27 09:24] LABS: Hemoglobin A1C% w Est Avg Glu 5.2 % (4.0-6.0)
[2024-09-27 09:34] LABS: Cholesterol 241 mg/dL (140-199); Glucose 101 mg/dL (70-100); HDL Cholesterol 99 mg/dL (40-60); LDL Cholesterol Calculated 126 mg/dL (<100); Triglycerides 78 mg/dL (35-150)
== END ==
PROVIDERS: Family Provider Family Medicine; PCP Registered Nurse Diabetes Educator; Referring Provider Registered Nurse Diabetes Educator; Visit Provider Registered Nurse Diabetes Educator
DX: E78.5 Hyperlipidemia, unspecified (principal); R73.01 Impaired fasting glucose
CPT/HCPCS: 36415; 80061; 82947; 83036

== ENCOUNTER 2024-10-07 01:46 | Emergency (ER) | payer OTHER, SELFPAY ==
[2024-10-07] VITALS (8 sets, daily range): BP systolic 107–124; BP diastolic 56–69; PULSE 57–72; RESP 16; TEMP 36.9; O2SAT 96–99; BMI 29.5
--- NOTE | 2024-10-07 02:07 | DI.CT.S_ITS ---
PROCEDURE: CT HEAD/BRAIN WO CON INDICATIONS: headache TECHNIQUE: Noncontrast 4.5 mm thick angled axial sections acquired from the foramen magnum to the vertex, with coronal and sagittal reformats. For radiation dose reduction, the following was used: automated exposure control, adjustment of mA and/or kV according to patient size. COMPARISON: Prior imaging is not available for review from the archive at the time of this dictation. FINDINGS: Image quality: Diagnostic. CSF spaces: Basal cisterns are patent. No extra-axial fluid collections. Ventricles are normal in size and shape. Brain: No midline shift. No intracranial masses or hemorrhage. Fish-white matter interface is normal. Skull and face: Calvarium and visualized facial bones are intact, without suspicious lesions. Sinuses: Visualized sinuses and mastoids are clear. IMPRESSION: Normal noncontrast head CT. No acute intracranial hemorrhage is seen. No masses or abnormal enhancement can be seen. Note: No significant discrepancy from the preliminary report. Dictated by: Hu Peralta M.D. on 10/07/2024 at 8:53 Approved by: Hu Peralta M.D. on 10/07/2024 at 8:54
[2024-10-07] MEDS: KETOROLAC 30 MG/ML VIAL 15 MG IV (02:12)
[2024-10-07] MEDS: ONDANSETRON 4 MG/2 ML INJ IV (03:33)
[2024-10-07] MEDS: ACETAMINOPHEN IV 1,000 MG/100 ML VIAL 400 MG IV (03:35)
--- NOTE | 2024-10-07 04:03 | ED.HA ---
HPI - Headache General Chief Complaint: Headache Stated Complaint: lt sided headache, lt side feels weird/numb Time Seen by Provider: 10/07/24 02:07 Mode of arrival: Ambulatory History of Present Illness HPI Narrative: Patient is a healthy 44-year-old female presenting today with headache. She reports that it started yesterday kind of gradually came on however tonight it occurred suddenly from her sleep. It is more in the left side. Not really nauseous. She has taken Tylenol Motrin previously. No numbness tingling or weakness. She has no history of migraine he is extremely sensitive to light. Pain is just much worse now than what it was yesterday. She denies any fever chills or neck pain Related Data Home Medications Medication Instructions Recorded Confirmed clonazepam 0.25 mg disintegrating 0.25 mg PO DAILY 05/24/24 09/01/24 tablet Previous Rx's Medication Instructions Recorded mupirocin 2 % topical ointment 1 applic topical TID #22 grams 07/11/24 phenazopyridine 200 mg tablet 200 mg PO TID 6 doses #6 tabs 09/01/24 (Pyridium) ondansetron 4 mg disintegrating 4 mg PO Q8H PRN nausea and 10/07/24 tablet vomiting #10 tabs Allergies Allergy/AdvReac Type Severity Reaction Status Date / Time No Known Drug Allergies Allergy Verified 09/01/24 10:07 Patient History Medical History Paroxysmal SVT (supraventricular tachycardia) Pelvic organ prolapse quantification stage 1 cystocele Dyslipidemia Impaired fasting blood sugar Anxiety Urinary tract infection symptoms Upper extremity somatic dysfunction Left elbow pain Surgical History Anesthesia History of shoulder surgery (~02/2020) History of tubal ligation (~2002) Family History Father Brain aneurysm Social History Smoking Status: Former smoker Smoking Status: Former smoker tobacco type: cigarettes and vaping alcohol intake frequency: 0-2 drinks per day Exam Initial Vital Signs Initial Vital Signs: Vital Signs Pulse Rate 70 10/07/24 01:53 Pulse Oximetry 99 10/07/24 01:53 GENERAL: Alert 44-year-old female appears uncomfortable in a darkened room HEENT: Head atraumatic,EOMI, pupils reactive, face symmetric, [moist] mucous membranes NECK: Supple no meningeal signs CARDIOVASCULAR: Regular rate and rhythm without murmurs, rubs or gallops. RESPIRATORY: Breath sounds equal bilaterally, no wheezes rales or rhonchi. ABDOMEN: Soft, nontender. Normoactive bowel sounds all 4 quadrants. No guarding or rebound. EXTREMITIES: Normal range of motion, no clubbing or edema. Neurovascularly intact NEUROLOGICAL: Alert and oriented x4.Normal gait and speech. Cranial nerves II through XII grossly intact. SKIN: Warm, dry, no laceration, no petechiae, no rashes or lesions. Course Orders Ordered: ED Orders 10/07/24 02:07 CT head/brain wo con Stat Discontinued Medications Acetaminophen (Ofirmev) 1,000 mg in 100 mls @ 400 mls/hr IV NOW ONE Stop: 10/07/24 03:47 Last Infusion: 10/07/24 03:57 Dose: Infused Documented By: Admin: 10/07/24 03:35 Dose: 400 mls/hr Documented By: Ketorolac Tromethamine (Ketorolac 30 Mg/Ml Vial) 15 mg IV NOW ONE Stop: 10/07/24 02:08 Last Admin: 10/07/24 02:12 Dose: 15 mg Documented By: Ondansetron HCl (Ondansetron 4 Mg/2 Ml Inj) 4 mg IV NOW ONE Stop: 10/07/24 03:31 Last Admin: 10/07/24 03:33 Dose: 4 mg Documented By: Vital Signs Vital signs: Vital Signs - 8 hr 10/07/24 01:53 10/07/24 01:54 10/07/24 01:54 Temperature 98.4 F Pulse Rate 70 72 67 Respiratory Rate 16 Blood Pressure 120/69 Pulse Oximetry 99 97 99 Oxygen Delivery Method Room Air 10/07/24 01:54 10/07/24 02:00 10/07/24 02:00 Temperature Pulse Rate 65 Respiratory Rate Blood Pressure 124/64 119/62 Pulse Oximetry 97 Oxygen Delivery Method Room Air 10/07/24 02:21 10/07/24 02:21 10/07/24 02:30 Temperature Pulse Rate 60 57 L Respiratory Rate Blood Pressure 115/58 L Pulse Oximetry 96 97 Oxygen Delivery Method 10/07/24 02:30 10/07/24 03:00 10/07/24 03:00 Temperature Pulse Rate 65 Respiratory Rate Blood Pressure 122/60 107/56 L Pulse Oximetry 96 Oxygen Delivery Method 10/07/24 03:30 10/07/24 03:30 10/07/24 04:00 Temperature Pulse Rate 65 58 L Respiratory Rate Blood Pressure 110/63 Pulse Oximetry 97 97 Oxygen Delivery Method Room Air 10/07/24 04:00 Temperature Pulse Rate Respiratory Rate Blood Pressure 110/59 L Pulse Oximetry Oxygen Delivery Method MDM - Headache Imaging Data CT scan - head: Radiologist's Impression: No CT evidence of acute intracranial pathology MDM Narrative Medical decision making narrative: Patient healthy 44-year-old female presenting today with headache. She is sensitive to light which is most consistent Brisa and however she does not typically migraine headaches. Head CT is negative she is neurovascularly intact. She did drive herself and would like to try and drive herself home. She was given Toradol which did decrease the pain but now starting to feel little nauseous. She was given Zofran and Tylenol which ultimately did seem to help and she felt like she could go home. Symptoms consistent with migraine headache. Sensitivity to light and nausea. Symptoms improved. She has afebrile no meningeal signs. Head CT was negative for any intracranial pathology. No focal deficits GCS of 15. Overall appears well Discharge Plan Departure Patient Disposition: Home Clinical Impression: Headache, migraine Instructions: DI for Migraine Activity Restrictions/Additional Instructions: *You have been diagnosed with migraine *What to do: At this time I do recommend you go and sleep make sure you drink plenty of fluids *Continue to take medications as directed Tylenol 1000 mg every 6 hours for [id number]-iz-[id number] pain Motrin 600 mg every 6 hours if needed for [id number] pain Zofran 4 mg every 8 hours if needed for nausea or vomiting *Follow up with your primary care provider in 2-3 days or call [phone] *Return to ER if you should have increasing headache persistent nausea vomiting weakness or any new, worsening or concerning symptoms Prescriptions: New ondansetron 4 mg tablet,disintegrating 4 mg PO Q8H PRN (Reason: nausea and vomiting) Qty: 10 0RF No Action phenazopyridine [Pyridium] 200 mg tablet 200 mg PO TID 0 Days Qty: 6 0RF mupirocin 2 % ointment 1 applic topical TID Qty: 22 0RF clonazepam 0.25 mg tablet,disintegrating 0.25 mg PO DAILY Referrals: Gabino Dumont ARNP [Primary Care Provider] - Stand Alone Forms: Patient Portal/API/Survey
== END 2024-10-07 04:33 | disposition home or self-care (01) ==
PROVIDERS: Emergency Provider Emergency Medicine; Family Provider Family Medicine; PCP Registered Nurse Diabetes Educator
DX: G43.909 Migraine, unspecified, not intractable, without status migrainosus (principal); R11.0 Nausea
CPT/HCPCS: 36415; 70450; 96365; 96375; 99284; J0134; J1885; J2405

== ENCOUNTER 2024-10-12 21:14 | Emergency (ER) | payer OTHER, SELFPAY ==
[2024-10-12 21:18] VITALS: BP 124/72; PULSE 62; RESP 17; TEMP 36.6; O2SAT 98; BMI 29.5
[2024-10-12 21:48] VITALS: PULSE 72; O2SAT 100
--- NOTE | 2024-10-12 21:55 | DI.RAD.S_ITS ---
PROCEDURE: XR ABDOMEN 1V INDICATIONS: Constipation TECHNIQUE: One view of the abdomen acquired. COMPARISON: None. FINDINGS: Surgical changes and devices: None. Bowel: Bowel gas pattern is torsion. Significant colonic stool. Soft tissues: No suspicious abdominal calcifications. Visualized solid organ contours appear normal in size. Bones: No suspicious bony lesions. IMPRESSION: Significant colonic stool without obstruction. Dictated by: Hemalatha Mohamud M.D. on 10/12/2024 at 22:28 Approved by: Hemalatha Mohamud M.D. on 10/12/2024 at 22:28
[2024-10-12 22:00] VITALS: PULSE 69; O2SAT 98
[2024-10-12 22:10] VITALS: BP 120/56; PULSE 74; O2SAT 99
[2024-10-12 22:16] LABS: Bacteria Urine Many (>30); RBC Urine 0-1/HPF (0-5/HPF); Squamous Epithelial Cell Urine 1-5 /HPF (0-5/HPF); Urine Volume 10mL (spun); WBC Urine 0-1/HPF (0-5/HPF)
[2024-10-12 22:30] VITALS: BP 112/63; PULSE 62; O2SAT 98
--- NOTE | 2024-10-12 22:47 | ED_ITS ---
HPI - General Adult General Chief complaint: Abdominal Pain Stated complaint: constipated t-3 Time Seen by Provider: 10/12/24 21:55 Source: patient Mode of arrival: Ambulatory History of Present Illness HPI narrative: Patient was a 44-year-old female. She has had issues with constipation in the past. States she was here for evaluation of constipation for the past several days. She has tried increasing her fiber. Increasing her fluids. Has tried stool softeners. He was also tried enemas without improvement. Feels like her abdomen is distended. No vomiting. Related Data Home Medications Medication Instructions Recorded Confirmed clonazepam 0.25 mg disintegrating 0.25 mg PO DAILY 05/24/24 09/01/24 tablet Previous Rx's Medication Instructions Recorded mupirocin 2 % topical ointment 1 applic topical TID #22 grams 07/11/24 phenazopyridine 200 mg tablet 200 mg PO TID 6 doses #6 tabs 09/01/24 (Pyridium) ondansetron 4 mg disintegrating 4 mg PO Q8H PRN nausea and 10/07/24 tablet vomiting #10 tabs Allergies Allergy/AdvReac Type Severity Reaction Status Date / Time No Known Drug Allergies Allergy Verified 09/01/24 10:07 Review of Systems Review of Systems Narrative: See HPI Patient History Medical History Paroxysmal SVT (supraventricular tachycardia) Pelvic organ prolapse quantification stage 1 cystocele Dyslipidemia Impaired fasting blood sugar Anxiety Urinary tract infection symptoms Upper extremity somatic dysfunction Left elbow pain Surgical History Anesthesia History of shoulder surgery (~02/2020) History of tubal ligation (~2002) Family History Father Brain aneurysm Social History Smoking Status: Former smoker Smoking Status: Former smoker tobacco type: cigarettes and vaping alcohol intake frequency: 0-2 drinks per day Exam Initial Vital Signs Initial Vital Signs: Vital Signs Temperature 97.9 F 10/12/24 21:18 Pulse Rate 62 10/12/24 21:18 Respiratory Rate 17 10/12/24 21:18 Blood Pressure 124/72 10/12/24 21:18 Pulse Oximetry 98 10/12/24 21:18 Oxygen Delivery Method Room Air 10/12/24 21:18 Const General: cooperative, comfortable and No ill appearing HENMT Head: normal to inspection Resp Effort & Inspection: normal respiratory effort Cardio Rate: regular rate GI Inspection: distended (Mild distention) Palpation: soft, No firm, No guarding and No rigid Skin General: no rashes or lesions noted Neuro General: patient alert, patient awake and moves all extremities Course Orders Ordered: ED Orders 10/12/24 21:50 Urine Culture Stat Urine Microscopic Stat 10/12/24 21:55 XR abdomen 1V Stat Discontinued Medications Lactulose (Lactulose 20 Gm/30 Ml Solution) 20 gm PO NOW ONE Stop: 10/12/24 22:48 Last Admin: 10/12/24 22:52 Dose: 20 gm Documented By: AB Vital Signs Vital signs: Vital Signs - 8 hr 10/12/24 21:18 10/12/24 21:48 10/12/24 22:00 Temperature 97.9 F Pulse Rate 62 72 69 Respiratory Rate 17 Blood Pressure 124/72 Pulse Oximetry 98 100 98 Oxygen Delivery Method Room Air Room Air 10/12/24 22:10 10/12/24 22:10 10/12/24 22:30 Temperature Pulse Rate 74 Respiratory Rate Blood Pressure 120/56 L 112/63 Pulse Oximetry 99 Oxygen Delivery Method 10/12/24 22:30 Temperature Pulse Rate 62 Respiratory Rate Blood Pressure Pulse Oximetry 98 Oxygen Delivery Method Room Air Medical Decision Making Lab Data Lab results reviewed: Yes I reviewed the patient's lab results. Labs: Lab Results 10/12/24 Range/Units 21:50 Urine RBC 0-1/hpf (0-5/HPF) Urine WBC 0-1/hpf (0-5/HPF) Ur Squamous Epith Cells 1-5 /hpf (0-5/HPF) Urine Bacteria Many (>30) H (None) Vol Urine Centrifuged 10ml (spun) Point of Care Testing Test Results Negative Urine Dip Bedside Urine Glucose Negative Bedside Urine Bilirubin - Negative Bedside Urine Ketone - Negative Urine Specific [place] 1.010 Bedside Urine Occult Blood ++ Bedside Urine pH 6.5 Bedside Urine Protein - Negative Bedside Urine Urobilinogen - Negative Bedside Urine Nitrite - Negative Bedside Urine Leukocytes - Negative Esterase Point of care testing: Point of Care Testing Test Results Negative Urine Dip Bedside Urine Glucose Negative Bedside Urine Bilirubin - Negative Bedside Urine Ketone - Negative Urine Specific [place] 1.010 Bedside Urine Occult Blood ++ Bedside Urine pH 6.5 Bedside Urine Protein - Negative Bedside Urine Urobilinogen - Negative Bedside Urine Nitrite - Negative Bedside Urine Leukocytes - Negative Esterase Imaging Data Abdominal x-ray: Radiologist's Impression: PROCEDURE: XR ABDOMEN 1V INDICATIONS: Constipation TECHNIQUE: One view of the abdomen acquired. COMPARISON: None. FINDINGS: Surgical changes and devices: None. Bowel: Bowel gas pattern is torsion. Significant colonic stool. Soft tissues: No suspicious abdominal calcifications. Visualized solid organ contours appear normal in size. Bones: No suspicious bony lesions. IMPRESSION: Significant colonic stool without obstruction. MDM Narrative Medical decision making narrative: Patient was well-appearing. She was still passing flatus. X-ray shows constipation without signs of obstruction and this does fit her clinical presentation today. She was a mild distention of her abdomen but it is soft. Good bowel sounds. Low suspicion for obstruction. Will hold on further ra diologic studies. We did discuss the use of laxatives at home. We discussed options. Gave a dose of lactulose here in the emergency department. Will discharge patient home with strict return precautions. She expressed understanding and agreement with plan. Discharge Plan Departure Patient Disposition: Home Clinical Impression: Constipation Instructions: DI for Constipation Activity Restrictions/Additional Instructions: Continue to take all of your medications as directed. I recommend that you start taking the MiraLax or your laxative of choice like we discussed. Contact your primary doctor for a follow-up. Return to the emergency department for new symptoms. Prescriptions: No Action phenazopyridine [Pyridium] 200 mg tablet 200 mg PO TID 0 Days Qty: 6 0RF mupirocin 2 % ointment 1 applic topical TID Qty: 22 0RF clonazepam 0.25 mg tablet,disintegrating 0.25 mg PO DAILY ondansetron 4 mg tablet,disintegrating 4 mg PO Q8H PRN (Reason: nausea and vomiting) Qty: 10 0RF Referrals: Gabino Dumont ARNP [Primary Care Provider] - Stand Alone Forms: Patient Portal/API/Survey
[2024-10-12] MEDS: LACTULOSE 20 GM/30 ML SOLUTION PO (22:52)
== END 2024-10-12 22:59 | disposition home or self-care (01) ==
PROVIDERS: Emergency Provider Emergency Medicine; Family Provider Family Medicine; PCP Registered Nurse Diabetes Educator
DX: K59.00 Constipation, unspecified (principal)
CPT/HCPCS: 74018; 81003; 81015; 81025; 87086; 99283

== ENCOUNTER 2024-12-21 19:38 | Emergency (ER) | payer OTHER, SELFPAY ==
[2024-12-21 19:42] VITALS: BP 124/61; PULSE 74; RESP 15; TEMP 36.7; O2SAT 98; BMI 28.3
[2024-12-21 20:04] VITALS: PULSE 70; O2SAT 99
[2024-12-21 20:15] VITALS: BP 145/70; PULSE 71; O2SAT 99
--- NOTE | 2024-12-21 20:22 | EKG_ITS ---
[address] [address] Test Date: 2024-12-21 Pat Name: Damaris Shea Department: [facility] Room: Gender: Female Inspector And Mender: [place] : 1980 Requested By: Order Number: [id number] Reading MD: Robert Coulter Measurements Intervals [place] Rate: 64 P: 10 [place]: 128 QRS: 33 QRSD: 72 T: 2 QT: 398 QTc: 410 Interpretive Statements Normal sinus rhythm Nonspecific T wave abnormality Electronically Signed On 12-24-2024 8:38:40 PDT by Robert Coulter
--- NOTE | 2024-12-21 20:47 | ED_ITS ---
HPI - Anxiety General Chief Complaint: Anxiety Stated Complaint: panic attack, wants to make sure nothing else Time Seen by Provider: 12/21/24 20:09 Source: patient Mode of arrival: Ambulatory History of Present Illness HPI narrative: 44-year-old female with history of anxiety, has been prescribed Klonopin in the past which she does not like to take, numerous social stressor including ailing 10-year-old [employer] family dog with dementia that they are going to be putting down when her arrives from deployment soon. No thoughts of hurting herself or others. She would like to try some other medication besides Klonopin for her anxiety. Related Data Previous Rx's Medication Instructions Recorded hydroxyzine HCl 50 mg tablet 50 mg PO TID PRN anxiety #30 tabs 12/21/24 Allergies Allergy/AdvReac Type Severity Reaction Status Date / Time No Known Drug Allergies Allergy Verified 09/01/24 10:07 Patient History Medical History Paroxysmal SVT (supraventricular tachycardia) Pelvic organ prolapse quantification stage 1 cystocele Dyslipidemia Impaired fasting blood sugar Anxiety Urinary tract infection symptoms Upper extremity somatic dysfunction Left elbow pain Surgical History Anesthesia History of shoulder surgery (~02/2020) History of tubal ligation (~2002) Family History Father Brain aneurysm Social History Smoking Status: Former smoker Smoking Status: Former smoker tobacco type: cigarettes and vaping alcohol intake frequency: 0-2 drinks per day Exam Narrative Exam Narrative: GENERAL: Well-developed patient, in mild distress. HEAD: Atraumatic. Normocephalic. EYES: Pupils equal round and reactive. Extraocular motions intact. No scleral icterus. No injection or drainage. ENT: Nose without bleeding, purulent drainage. Throat without erythema, tonsillar hypertrophy or exudate. Airway patent. NECK: Trachea midline. Non tender CARDIOVASCULAR: Regular rate and rhythm without murmurs, gallops, or rubs. RESPIRATORY: Clear to auscultation. Breath sounds equal bilaterally. No wheezes, rales, or rhonchi. GASTROINTESTINAL: Abdomen soft, non-tender, nondistended. EXTREMITIES: No edema or joint tenderness. BACK: Nontender without deformity or crepitance. No flank tenderness. NEURO: AOx3. Motor functions grossly nonfocal SKIN: No rash or erythema of visible areas Initial Vital Signs Initial Vital Signs: Vital Signs Temperature 98.1 F 12/21/24 19:42 Pulse Rate 74 12/21/24 19:42 Respiratory Rate 15 12/21/24 19:42 Blood Pressure 124/61 12/21/24 19:42 Pulse Oximetry 98 12/21/24 19:42 Oxygen Delivery Method Room Air 12/21/24 19:42 Course Orders Ordered: Discontinued Medications Hydroxyzine HCl (Hydroxyzine Hcl 25 Mg Tablet) 50 mg PO NOW ONE Stop: 12/21/24 20:27 Last Admin: 12/21/24 20:58 Dose: 50 mg Documented By: RITESH Vital Signs Vital signs: Vital Signs - 8 hr 12/21/24 22:00 12/21/24 22:01 Pulse Rate 62 Respiratory Rate 16 Blood Pressure 118/57 L Pulse Oximetry 97 Oxygen Delivery Method Room Air MDM - Anxiety ECG Data Attestation: I personally reviewed and interpreted this ECG as follows: Interpretation: Normal sinus rhythm with rate of 64, no obvious ST segment elevation or depression changes. Flat T-waves lead 3 noted upright in other contiguous inferior leads 2 and F. UT 128, QRS 72, QTC 410. [facility] Narrative Medical decision making narrative: 44-year-old female with history of anxiety, not liking Klonopin medication previously prescribed, we would like some alternative therapy, recent stressors increasing her anxiety, waiting to put down there 10-year-old [employer] that is suffering from dementia, arriving from [place] [facility] deployment to accomplish this soon. Trial of oral hydroxyzine. EKG unremarkable. Hydroxyzine patient found helpful, feels a lot less anxious, she would like to try this as an outpatient. Prescription sent to her pharmacy. Advised to follow up with her primary care provider for further mental health issues. Acknowledged her ongoing suffering regarding ailing family pet with dementia, awaiting 's arrival for likely dog euthanasia. Home with family. Discharge Plan Departure Patient Disposition: Home Clinical Impression: Anxiety Instructions: DI for Anxiety -- Adult Activity Restrictions/Additional Instructions: Ms. Shea, You described history of anxiety for which she had been prescribed Klonopin in the past which he would not like to be taking, seeking alternative treatment. Recent social stressors include impending PET euthanasia of your family dog, awaiting arrival of your from deployment. No doubt this as to any baseline anxiety that you might be feeling. You were given oral dose of hydroxyzine which she found helpful, less anxious after the trial dose in the emergency department. Further tablets sent to your pharmacy as prescription with a refill to use if needed for control of anxiety symptoms. Follow up with your regular provider advised to coordinate further mental health services, sometimes cognitive therapies can be helpful as well. Return earlier to this/nearest emergency department for any change worsening symptoms or any concerns prior. Thank you for allowing our team to evaluate you today. Prescriptions: New hydroxyzine HCl 50 mg tablet 50 mg PO TID PRN (Reason: anxiety) Qty: 30 1RF Referrals: Gabino Dumont ARNP [Primary Care Provider] - Stand Alone Forms: Patient Portal/API/Survey
[2024-12-21] MEDS: hydrOXYzine HCL 25 MG TABLET 50 MG PO (20:58)
[2024-12-21 22:00] VITALS: PULSE 62; RESP 16; O2SAT 97
[2024-12-21 22:01] VITALS: BP 118/57
== END 2024-12-21 22:50 | disposition home or self-care (01) ==
PROVIDERS: Emergency Provider Emergency Medicine; Family Provider Family Medicine; PCP Registered Nurse Diabetes Educator
DX: F41.9 Anxiety disorder, unspecified (principal)
CPT/HCPCS: 93005; 99283; A9270

== ENCOUNTER → 2025-01-31 08:36 | Outpatient (CLI) | payer OTHER, SELFPAY ==
[2025-01-31 09:01] LABS: Hemoglobin 13.8 g/dL (12.0-16.0); Mean Corpuscular HGB Conc 34.4 % (30-36); Mean Corpuscular Hemoglobin 31.3 PG (26-34); Platelet Count 203 X10^3/uL (150-400); Red Blood Cell Count 4.39 X10^6/uL (4.0-5.2); Red Cell Distribution Width 12.9 % (11.6-14.8); White Blood Cell Count 7.1 X10^3/uL (4.5-11.0)
[2025-01-31 09:12] LABS: Hemoglobin A1C% w Est Avg Glu 5.1 % (4.0-6.0)
[2025-01-31 09:19] LABS: HEMOLYSIS < 15 (0-50); Iron 131 ug/dL (37-170)
[2025-01-31 09:24] LABS: Alanine Aminotransferase 20 IU/L (<35); Albumin 4.8 g/dL (3.5-5.0); Albumin Globulin Ratio 1.7 (1.0-2.8); Alkaline Phosphatase 71 U/L (38-126); Aspartate Aminotransferase 24 IU/L (14-36); BUN Creatinine Ratio 18.5 (6-22); Bilirubin Total 0.9 mg/dL (0.2-1.3); Blood Urea Nitrogen 15 mg/dL (7-17); Calcium 9.5 mg/dL (8.4-10.2); Carbon Dioxide 23 mmol/L (22-32); Chloride 104 mmol/L (98-107); Cholesterol 262 mg/dL (140-199); Estimated Glomerular Filt Rate > 60 mL/min (>60); Globulin 2.8 g/dL (1.7-4.1); Glucose 98 mg/dL (70-100); HDL Cholesterol 84 mg/dL (40-60); LDL Cholesterol Calculated 156 mg/dL (<100); Potassium 4.1 mmol/L (3.4-5.1); Sodium 136 mmol/L (137-145); Total Protein 7.6 g/dL (6.3-8.2); Triglycerides 109 mg/dL (35-150)
[2025-01-31 09:25] LABS: HEMOLYSIS 25 (0-50)
[2025-01-31 09:29] LABS: Percent Iron Saturation 45 % (15-50); Total Iron Binding Capacity 291 ug/dL (265-497); Transferrin 248 mg/dL (206-381)
[2025-01-31 09:35] LABS: Vitamin D 25 Hydroxy (D3) 22.5 ng/mL (30.0-100.0)
[2025-01-31 09:50] LABS: TSH w/ Reflex to FT4 2.58 uIU/mL (0.47-4.68)
[2025-01-31 10:00] LABS: Ferritin 51 ng/mL (6-137)
[2025-01-31 10:09] LABS: Vitamin B12 382 pg/mL (239-931)
== END ==
PROVIDERS: Family Provider Family Medicine; PCP Registered Nurse Diabetes Educator; Referring Provider Registered Nurse Diabetes Educator; Visit Provider Registered Nurse Diabetes Educator
DX: R73.01 Impaired fasting glucose (principal); E78.5 Hyperlipidemia, unspecified; Z86.2 Personal history of diseases of the blood and blood-forming organs and certain disorders involving the immune mechanism; F41.9 Anxiety disorder, unspecified; R53.83 Other fatigue
CPT/HCPCS: 36415; 80053; 80061; 82306; 82607; 82728; 83036; 83540; 83550; 84443; 85027

== ENCOUNTER 2025-04-05 10:38 | Emergency (ER) | payer OTHER, SELFPAY ==
[2025-04-05 10:42] VITALS: BP 110/55; PULSE 69; RESP 13; TEMP 36.8; O2SAT 99; BMI 28.3
--- NOTE | 2025-04-05 10:44 | DI.RAD.S_ITS ---
PROCEDURE: XR TOE RT MIN 2V INDICATIONS: right pinky toe injury TECHNIQUE: 3 views of the right 5th toe(s) acquired. COMPARISON: None. FINDINGS: Bones: No fractures or dislocations. No suspicious bony lesions. Soft tissues: No suspicious soft tissue densities. IMPRESSION: No acute bony abnormality. If pain persists, followup imaging in 5-7 days is recommended to exclude occult fracture. Dictated by: Mireille Brooke M.D. on 04/05/2025 at 11:19 Approved by: Mireille Brooke M.D. on 04/05/2025 at 11:20
--- NOTE | 2025-04-05 10:50 | ED.LOWEXIN ---
HPI - Extremity Injury (Lower) General Chief Complaint: Extremity Injury, Lower Stated Complaint: Possible broken right pinky Toe Time Seen by Provider: 04/05/25 10:48 Source: patient Mode of arrival: Wheelchair Related Data Previous Rx's ?Medication ?Instructions ?Recorded hydroxyzine HCl 50 mg tablet 50 mg PO TID PRN anxiety #30 tabs 12/21/24 Allergies Allergy/AdvReac Type Severity Reaction Status Date / Time No Known Drug Allergies Allergy Verified 04/05/25 10:42 Patient History Medical History Paroxysmal SVT (supraventricular tachycardia) Pelvic organ prolapse quantification stage 1 cystocele Dyslipidemia Impaired fasting blood sugar Anxiety Urinary tract infection symptoms Upper extremity somatic dysfunction Left elbow pain Surgical History Anesthesia History of shoulder surgery (~02/2020) History of tubal ligation (~2002) Family History Father Brain aneurysm Social History Smoking Status: Unknown if ever smoked Smoking Status: Unknown if ever smoked tobacco type: cigarettes and vaping alcohol intake frequency: 0-2 drinks per day Exam Initial Vital Signs Initial Vital Signs: Vital Signs Temperature 98.2 F 04/05/25 10:42 Pulse Rate 69 04/05/25 10:42 Respiratory Rate 13 04/05/25 10:42 Blood Pressure 110/55 L 04/05/25 10:42 Pulse Oximetry 99 04/05/25 10:42 Oxygen Delivery Method Room Air 04/05/25 10:42 Course Orders Ordered: ED Orders 04/05/25 10:44 XR toe RT min 2V Stat Vital Signs Vital signs: Vital Signs - 8 hr 04/05/25 10:42 Temperature 98.2 F Pulse Rate 69 Respiratory Rate 13 Blood Pressure 110/55 L Pulse Oximetry 99 Oxygen Delivery Method Room Air Discharge Plan Departure Prescriptions: No Action hydroxyzine HCl 50 mg tablet 50 mg PO TID PRN (Reason: anxiety) Qty: 30 1RF Referrals: Gabino Dumont ARNP [Primary Care Provider, Medical]
--- NOTE | 2025-04-05 11:06 | ED_ITS ---
<Statement entered by Dominic Zuniga, DO - 04/05/25 18:19> Co-sign statement: I was available for consultation during this patient's emergency department visit. This chart assigned by myself for administrative purposes only. I do not have direct contact with this patient during this visit. They were seen by the APC independently. HPI - Extremity Injury (Lower) General Chief Complaint: Extremity Injury, Lower Stated Complaint: Possible broken right pinky Toe Time Seen by Provider: 04/05/25 10:48 Source: patient Mode of arrival: Wheelchair History of Present Illness HPI Narrative: A 44-year-old female presenting with concern for right toe pain after she accidentally hit her pinky toe on the right foot into a stool while she was walking this morning around 8:00 a.m.. Patient states when she attempts to move it it is very painful and when she is not moving it there is a constant pressure sensation. Her toe pain is worse with walking/weightbearing. She denies prodrome, falling to the ground hitting her head or any other injuries at the time of the event. She took a combination Tylenol ibuprofen this morning after the event. She denies numbness or tingling of the affected toe. She also denies any previous surgery fractures or injury to this toe or foot. 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 Related Data Previous Rx's ?Medication ?Instructions ?Recorded hydroxyzine HCl 50 mg tablet 50 mg PO TID PRN anxiety #30 tabs 12/21/24 Allergies Allergy/AdvReac Type Severity Reaction Status Date / Time No Known Drug Allergies Allergy Verified 04/05/25 10:42 Review of Systems Review of Systems Narrative: See HPI Patient History Medical History Paroxysmal SVT (supraventricular tachycardia) Pelvic organ prolapse quantification stage 1 cystocele Dyslipidemia Impaired fasting blood sugar Anxiety Urinary tract infection symptoms Upper extremity somatic dysfunction Left elbow pain Surgical History Anesthesia History of shoulder surgery (~02/2020) History of tubal ligation (~2002) Family History Father Brain aneurysm Smoking Status: Unknown if ever smoked tobacco type: cigarettes and vaping alcohol intake frequency: 0-2 drinks per day Exam Narrative Exam Narrative: GENERAL: 44 year old patient appears stated age. Well-developed patient, in mild distress. HEAD: Atraumatic. Normocephalic. EYES: Pupils equal round and reactive. Extraocular motions intact. No scleral icterus. No injection or drainage. ENT: Nose without bleeding, purulent drainage. Airway patent. NECK: Trachea midline. CARDIOVASCULAR: Regular rate and rhythm without murmurs, gallops, or rubs. RESPIRATORY: No increased work of breathing or respiratory distress EXTREMITIES: The affected 5th digit of the right foot is very slightly swollen as compared to the left 5th digit. Is slightly erythematous. It is very tender to touch. No open skin. There is slight tenderness and increased toe discomfort with palpation over the 5th MTP joint. Reduced range of motion of the 5th right digit 2nd to pain and hesitancy. Strong pedal pulses. There is no tenderness of the remainder of the bones/soft tissue of the toes foot or ankle on the affected R side. No other edema or joint tenderness. NEURO: AOx3. SKIN: No rash or erythema of visible areas Initial Vital Signs Initial Vital Signs: Vital Signs Temperature 98.2 F 04/05/25 10:42 Pulse Rate 69 04/05/25 10:42 Respiratory Rate 13 04/05/25 10:42 Blood Pressure 110/55 L 04/05/25 10:42 Pulse Oximetry 99 04/05/25 10:42 Oxygen Delivery Method Room Air 04/05/25 10:42 Course Orders Ordered: ED Orders 04/05/25 10:44 XR toe RT min 2V Stat Vital Signs Vital signs: Vital Signs - 8 hr 04/05/25 10:42 04/05/25 11:24 Temperature 98.2 F Pulse Rate 69 Pulse Rate [Right Dorsalis Pedis] 72 Respiratory Rate 13 Blood Pressure 110/55 L Pulse Oximetry 99 Oxygen Delivery Method Room Air MDM - Extremity Injury (Lower) Differential Diagnosis Differential diagnosis: Likely fracture of toe and other (Sprain of toe) Medical Records Attestation: I reviewed the patient's medical records. Imaging Data Extremity x-ray #1: My Impression: Agree with Radiology interpretation Radiologist's Impression: Procedure: XR TOE RT MIN 2V Impression: No acute bony abnormality. If pain persists, follow up imaging in 5-7 days is recommended to exclude occult fracture. Dictated by: Mireille Brooke MD on 04/05/2025 at 11:19th [facility] Narrative Medical decision making narrative: This is a 44-year-old woman presenting with concern for right 5th toe pain after she stubbed it against a stool at home this morning. Pain with weight-bearing and persistent pressure type pain in the toe. X-rays obtained for further evaluation. Patient's ROM of toe seems to be intact however slightly reduced 2nd to hesitation and pain. X-ray shows no evidence of fracture. Patient was placed in a postop orthopedic walking shoe and advised rest ice elevation compression as tolerated. Advised consider repeat x-rays in 5-7 days if pain is not improving with appropriate treatment. Continue Tylenol and ibuprofen. Return precautions provided, follow-up plan discussed, all questions answered. Discharge Plan Departure Patient Disposition: Home Clinical Impression: Sprain of fifth toe of right foot Qualifiers: Encounter type: initial encounter Qualified Code(s): S93.504A - Unspecified sprain of right lesser toe(s), initial encounter Activity Restrictions/Additional Instructions: *You have been diagnosed with [sprain of 5th toe of the right foot] *What to do: *Please continue to take your regular medications as directed. [ ] New medication prescriptions sent to your pharmacy: [ ] [ ] New medication written as a paper prescription [ X] No new medications given *Please follow up with your primary care provider in 2-3 days, call for an appointment. Let them know you were seen in the Emergency Department and that we ask that you be seen in follow up. We will electronically transmit a record of today's note if your PCP is in our system. You had x-rays today in the emergency department. These did not show evidence of fracture. However it is important that if her pain is still persistent or has not improved within 5-7 days despite appropriate treatment, you may need to have repeat x-rays for further evaluation. You can follow up with your PCP as needed. We placed you in a orthopedic walking shoe today which keeps you from bending your toe and should help with pain reduction when you are walking. Recommend rest ice and elevation. As your pain starts to improve in the next few days you can also try gentle compression with an Iam wrap. Recommend you continue with Tylenol and ibuprofen particularly over the 1st 24-48 hours this will be helpful to minimize pain. I hope this feels better soon for you. *If you do not have a primary care provider please contact the [facility] Resource line at [phone]. They will ask some questions about your medical history and help get you set up with a doctor in the community. *Return to Emergency Department if you should have any new, worsening or concerning symptoms, such as [fever greater than 101 F, shaking chills, worsening pain, persistent vomiting or other bothersome symptoms] Prescriptions: No Action hydroxyzine HCl 50 mg tablet 50 mg PO TID PRN (Reason: anxiety) Qty: 30 1RF Referrals: Gabino Dumont ARNP [Primary Care Provider, Medical] Stand Alone Forms: Patient Portal/API
[2025-04-05 11:24] VITALS: PULSE 72
[2025-04-05 12:09] VITALS: BP 118/60; PULSE 68; RESP 20; TEMP 36.6; O2SAT 99
== END 2025-04-05 12:10 | disposition home or self-care (01) ==
PROVIDERS: Emergency Provider Student in an Organized Health Care Education/Training Program; Family Provider Family Medicine; PCP Registered Nurse Diabetes Educator
DX: S93.504A Unspecified sprain of right lesser toe(s), initial encounter (principal); W22.8XXA Striking against or struck by other objects, initial encounter
CPT/HCPCS: 73660; 99281; 99283

== ENCOUNTER 2025-05-05 01:58 | Emergency (ER) | payer OTHER, SELFPAY ==
[2025-05-05] VITALS (20 sets, daily range): BP systolic 105–144; BP diastolic 55–89; PULSE 51–74; RESP 13–24; O2SAT 94–98; BMI 30.2
--- NOTE | 2025-05-05 02:01 | DI.RAD.S_ITS ---
PROCEDURE: XR CHEST 1V INDICATIONS: Chest Pain TECHNIQUE: One view of the chest was acquired. COMPARISON: (Prior imaging is not available for review from the archive at the time of this dictation.) FINDINGS: Surgical changes and devices: None. Lungs and pleura: On this semiupright portable chest examination, no large pneumothorax or large pleural effusions are seen. No focal infiltrates are seen. Low lung volumes are noted. This causes a crowded appearance to the lung markings and limits evaluation. Mediastinum: Mediastinal contours appear normal. Heart size is normal. Bones and chest wall: No suspicious bony lesions. Overlying soft tissues appear unremarkable. IMPRESSION: Limited portable chest examination, without a significant cardiopulmonary abnormality identified. Dictated by: Hu Peralta M.D. on 05/05/2025 at 1:30 Approved by: Hu Peralta M.D. on 05/05/2025 at 1:32
--- NOTE | 2025-05-05 02:07 | EKG_ITS ---
[address] [id number] [address] [address] Test Date: 2025-05-05 Pat Name: Damaris Shea Department: Room: Gender: Female Sap Architect: ALLYSON : 1980 Requested By: Order Number: [id number] Reading MD: Robert Coulter Measurements Intervals [place] Rate: 70 P: 26 AR: 162 QRS: 37 QRSD: 70 T: 6 QT: 402 QTc: 434 Interpretive Statements Normal sinus rhythm Electronically Signed On 05-06-2025 8:41:05 PDT by Robert Coulter
[2025-05-05] MEDS: ASPIRIN 81 MG CHEW TAB 324 MG PO (02:10)
--- NOTE | 2025-05-05 02:19 | ED_ITS ---
HPI - Chest Pain General Chief Complaint: Chest Pain Stated Complaint: Severe Chest pain Time Seen by Provider: 05/05/25 02:00 Source: patient and family Mode of arrival: Wheelchair History of Present Illness HPI narrative: 44-year-old woman brought in by her sister with severe chest pain initially started in the right shoulder than migrated to the central chest is now into the left chest. Associated with diaphoresis, dyspnea, no palpitations. She does have a history of anxiety but is never had similar symptoms. No recent trauma, no new activity changes she was sitting at rest when the episode started. She is not complaining of abdominal pain, there was no nausea or vomiting. She does not have a family history of early coronary disease nor personal history of coronary disease, hypertension or hyperlipidemia Related Data Previous Rx's ?Medication ?Instructions ?Recorded hydroxyzine HCl 50 mg tablet 50 mg PO TID PRN anxiety #30 tabs 12/21/24 Allergies Allergy/AdvReac Type Severity Reaction Status Date / Time No Known Drug Allergies Allergy Verified 04/05/25 10:42 Review of Systems Review of Systems Narrative: Pertinent positive and negative findings as per HPI Patient History Medical History Paroxysmal SVT (supraventricular tachycardia) Pelvic organ prolapse quantification stage 1 cystocele Dyslipidemia Impaired fasting blood sugar Anxiety Urinary tract infection symptoms Upper extremity somatic dysfunction Left elbow pain Surgical History Anesthesia History of shoulder surgery (~02/2020) History of tubal ligation (~2002) Family History Father Brain aneurysm tobacco type: cigarettes and vaping alcohol intake frequency: 0-2 drinks per day Exam Initial Vital Signs Initial Vital Signs: Vital Signs Pulse Rate 74 05/05/25 02:06 Respiratory Rate 24 05/05/25 02:06 Blood Pressure 144/89 H 05/05/25 02:06 Pulse Oximetry 94 05/05/25 02:06 Oxygen Delivery Method Room Air 05/05/25 02:06 General: Pale, diaphoretic, moaning with pain, sister provides most the history. HEENT: Moist mucous membranes, normal sclera with reactive pupils, Respiratory: Lungs are clear to auscultation, no wheezing no rales no rhonchi. Full and symmetrical air movement, no retractions she is able to speak in complete sentences Cardiac: Regular rate and rhythm no murmurs no bruits Abdomen: Soft, nontender, no rebound or guarding, no flank pain Skin: Pale, diaphoretic Neurologic: Grossly neurologically intact with no obvious asymmetries or abnormalities Extremities: No trauma, well perfused, no lower extremity edema Psych: Cooperative, appropriate insight and affect Course Orders Ordered: ED Orders 05/05/25 02:01 XR chest 1V Stat EKG-12 Lead Stat 05/05/25 02:10 Complete Blood Count AUTO DIFF Stat Comprehensive Metabolic Panel Stat D Dimer Stat Lipase Stat Magnesium Stat NT-proBNP (BNP-Adult 18+) Stat PTT Partial Thromboplastin Nahid Stat Prothrombin Time INR Stat Troponin & CK Cardiac Panel Stat 05/05/25 04:05 Trop I [Troponin I] Stat Morphine Sulfate (Morphine 2 Mg/Ml Inj) 2 mg IV Q5MIN PRN PRN Reason: Chest Pain Last Admin: 05/05/25 02:27 Dose: 2 mg Documented By: LIGIA Discontinued Medications Aspirin (Aspirin 81 Mg Chew Tab) 324 mg PO NOW ONE Stop: 05/05/25 02:02 Last Admin: 05/05/25 02:10 Dose: 243 mg Documented By: AB Nitroglycerin (Nitroglycerin 0.4 Mg Sl Tab) 0.4 mg SL NOW ONE Stop: 05/05/25 04:01 Last Admin: 05/05/25 02:15 Dose: Not Given Documented By: LIGIA Vital Signs Vital signs: Vital Signs - 8 hr 05/05/25 02:06 05/05/25 03:17 05/05/25 03:20 Pulse Rate 74 56 L 55 L Respiratory Rate 24 15 15 Blood Pressure 144/89 H Pulse Oximetry 94 97 96 Oxygen Delivery Method Room Air 05/05/25 03:20 05/05/25 03:25 05/05/25 03:25 Pulse Rate 54 L Respiratory Rate 15 Blood Pressure 113/63 127/64 Pulse Oximetry 97 Oxygen Delivery Method 05/05/25 03:30 05/05/25 03:30 05/05/25 03:35 Pulse Rate 53 L Respiratory Rate 14 Blood Pressure 113/60 127/61 Pulse Oximetry 97 Oxygen Delivery Method 05/05/25 03:35 05/05/25 03:40 05/05/25 03:40 Pulse Rate 54 L 55 L Respiratory Rate 14 15 Blood Pressure 114/58 L Pulse Oximetry 97 97 Oxygen Delivery Method 05/05/25 03:45 05/05/25 03:45 05/05/25 03:50 Pulse Rate 53 L 53 L Respiratory Rate 14 15 Blood Pressure 107/55 L Pulse Oximetry 97 96 Oxygen Delivery Method 05/05/25 03:50 05/05/25 03:55 05/05/25 03:55 Pulse Rate 53 L Respiratory Rate 14 Blood Pressure 116/60 113/57 L Pulse Oximetry 96 Oxygen Delivery Method 05/05/25 04:00 05/05/25 04:00 05/05/25 04:05 Pulse Rate 51 L 60 Respiratory Rate 14 14 Blood Pressure 120/58 L Pulse Oximetry 96 97 Oxygen Delivery Method 05/05/25 04:05 05/05/25 04:10 05/05/25 04:10 Pulse Rate 57 L Respiratory Rate 14 Blood Pressure 108/55 L 105/56 L Pulse Oximetry 97 Oxygen Delivery Method 05/05/25 04:15 05/05/25 04:15 05/05/25 04:20 Pulse Rate 54 L Respiratory Rate 14 Blood Pressure 112/60 119/55 L Pulse Oximetry 96 Oxygen Delivery Method 05/05/25 04:20 05/05/25 04:25 05/05/25 04:25 Pulse Rate 53 L 52 L Respiratory Rate 14 14 Blood Pressure 105/56 L Pulse Oximetry 96 96 Oxygen Delivery Method 05/05/25 04:30 05/05/25 04:30 05/05/25 04:34 Pulse Rate 51 L 52 L Respiratory Rate 13 14 Blood Pressure 112/57 L Pulse Oximetry 98 97 Oxygen Delivery Method 05/05/25 04:35 Pulse Rate Respiratory Rate Blood Pressure 111/63 Pulse Oximetry Oxygen Delivery Method MDM - Chest Pain Lab Data 05/05/25 02:10 05/05/25 02:10 Labs: Lab Results 05/05/25 05/05/25 Range/Units 02:10 04:05 WBC 8.9 (4.5-11.0) X10^3/uL RBC 4.43 (4.0-5.2) X10^6/uL Hgb 14.1 (12.0-16.0) g/dL Hct 40.3 (36-46) % MCV 90.9 (80-100) fL MCH 31.9 (26-34) PG MCHC 35.1 (30-36) % RDW 12.8 (11.6-14.8) % Plt Count 199 (150-400) X10^3/uL Neut % (Auto) 47.5 L (50-75) % Lymph % (Auto) 42.3 H (25-40) % [place] % (Auto) 7.5 (3-14) % Eos % (Auto) 1.8 L (2-4) % Baso % (Auto) 0.9 (0-2) % Neut # (Auto) 4200 (0042-2339) /uL Lymph # (Auto) 3800 (0447-8765) /uL [place] # (Auto) 700 (0-900) /uL Eos # (Auto) 200 (0-450) /uL Baso # (Auto) 100 (0-100) /uL PT 10.8 (9.4-12.5) SECONDS INR 1.0 (0.9-1.3) APTT 28 (25.1-36.5) SECONDS D-Dimer 253 (<500) ng/ml Sodium 136 L (137-145) mmol/L Potassium 4.0 (3.4-5.1) mmol/L Chloride 102 (98-107) mmol/L Carbon Dioxide 25 (22-32) mmol/L BUN 15 (7-17) mg/dL Creatinine 0.75 (0.52-1.04) mg/dL Estimated GFR > 60 (>60) mL/min BUN/Creatinine Ratio 20.0 (6-22) Glucose 97 (70-99) mg/dL Calcium 10.1 (8.4-10.2) mg/dL Magnesium 1.8 (1.6-2.3) mg/dL Total Bilirubin 0.7 (0.2-1.3) mg/dL AST 30 (14-36) IU/L ALT 24 (<35) IU/L Alkaline Phosphatase 70 (38-126) U/L Total Creatine Kinase 95 (30-135) U/L Troponin I < 0.012 < 0.012 (0.01-0.034) ng/mL NT-Pro-B Natriuret Pep 47 (<125) pg/mL Total Protein 8.2 (6.3-8.2) g/dL Albumin 4.8 (3.5-5.0) g/dL Globulin 3.4 (1.7-4.1) g/dL Albumin/Globulin Ratio 1.4 (1.0-2.8) Lipase 76 (23-300) U/L MDM Narrative Medical decision making narrative: CC: Of your chest pain associated with dyspnea and diaphoresis onset just prior to arrival Complicating co-morbidities: History of anxiety, PSVT, Data collected from: patient, sister Medical records reviewed: Medical records available mainly focused around ER visits with pain related or anxiety related complaints Differential considered: Coronary syndrome, pneumothorax, pulmonary embolism, pneumonia, gallbladder pain, gastritis Exam documented above, pertinent findings include: Significant pain radiating through the chest not reproducible with palpation, abdominal exam is benign Lab Test results independently reviewed as above. Pertinent findings: CBC is unremarkable Chemistries are normal Initial troponin is undetectable, repeat trop is undetectable ProBNP is low Lipase is low D-dimer is low Independently reviewed EKG: Sinus rhythm at a rate of 70 with no acute ischemic changes Imaging studies independently reviewed: Chest x-ray is unremarkable Treatments: Patient was willing to take 3 baby aspirin, took 1 prior to arrival. Declines nitroglycerin with concerns that hypotension would cause severe anxiety (current blood pressure is 134/75) Re-evaluations: 2:50 a.m. patient is feeling much better. The morphine did help with the pain although she does not like the side effects. Pain-free at this point, calmer, no more diaphoresis. Reviewed results and recommendation for repeat troponin drawn at 4:00 a.m. Discussion: 44-year-old woman presents with acute onset initially right-sided chest pain radiating through her chest into the left side. Initially 9/10 pain pale, diaphoretic, severe anxiety. Exam was otherwise benign. Lab work was reassuring with initial and repeat troponin low, normal D-dimer, normal lipase and proBNP. No evidence for infection, pneumothorax, acute coronary syndrome, pulmonary embolism, dissection or alternate explanation to explain the severe pain. She initially thought it was heartburn and did take Pepto-Bismol, Tums and famotidine prior to arrival. Certainly esophageal spasm, severe reflux, developing gastritis or gastric ulcer Daood have similar pain presentation distribution. At this time, her Heart score is 0. Her pain is resolved, there is no indication for additional workup at this time or hospitalization. Findings reviewed with the patient and her sister. Did recommend follow up with her primary care physician. Explain that although we can often find all the things that she does not have an reassured her that this is not a life- threatening event, sometimes it takes working with your primary care physician actually come to a final diagnosis. She is safe for discharge Discharge Plan Departure Patient Disposition: Home Clinical Impression: Chest pain, non-cardiac Instructions: DI for Atypical Chest Pain Activity Restrictions/Additional Instructions: Thank you for coming in today Fortunately, all of the life-threatening things that can cause this severe chest pain including heart attack, collapsed lung, blood clots in your lungs, lung infections, dissection are things that you do not have based on today's evaluation which includes physical exam, blood work and imaging studies. Sometimes the best we can do in the emergency department is reassure you that there is not a life-threatening condition and is safe for discharge home. Sometimes it does take working with your primary care physician to come to an actual diagnosis. You had said that this felt like it was heartburn and that may well be part of the explanation. It is okay to use Tums or nsib-bnl-whlewic stomach acid blockers should this happen again see if it helps I would recommend scheduling a follow up appointment with your regular everyday physician If you find that you are getting worse or develop any new symptoms, please feel free to return to the emergency department for further evaluation. Prescriptions: No Action hydroxyzine HCl 50 mg tablet 50 mg PO TID PRN (Reason: anxiety) Qty: 30 1RF Referrals: Gabino Dumont ARNP [Primary Care Provider, Medical] Stand Alone Forms: Patient Portal/API
[2025-05-05 02:21] LABS: Add Manual Diff / Slide Review NO; Hematocrit 40.3 % (36-46); Hemoglobin 14.1 g/dL (12.0-16.0); Lymphocytes Absolute Auto 3800 /uL (1100-4500); Mean Corpuscular HGB Conc 35.1 % (30-36); Mean Corpuscular Hemoglobin 31.9 PG (26-34); Mean Corpuscular Volume 90.9 fL (80-100); Platelet Count 199 X10^3/uL (150-400)
[2025-05-05 02:23] LABS: INR 1.0 (0.9-1.3); Prothrombin Time 10.8 SECONDS (9.4-12.5)
[2025-05-05 02:26] LABS: PTT Partial Thromboplastin Tim 28 SECONDS (25.1-36.5)
[2025-05-05] MEDS: MORPHINE 2 MG/ML INJ IV (02:27)
[2025-05-05 02:29] LABS: Alanine Aminotransferase 24 IU/L (<35); Albumin 4.8 g/dL (3.5-5.0); Albumin Globulin Ratio 1.4 (1.0-2.8); Alkaline Phosphatase 70 U/L (38-126); Blood Urea Nitrogen 15 mg/dL (7-17); Calcium 10.1 mg/dL (8.4-10.2); Carbon Dioxide 25 mmol/L (22-32); Chloride 102 mmol/L (98-107); Creatine Kinase 95 U/L (30-135); Estimated Glomerular Filt Rate > 60 mL/min (>60); Globulin 3.4 g/dL (1.7-4.1); Glucose 97 mg/dL (70-99); HEMOLYSIS < 15 (0-50); Lipase 76 U/L (23-300); Magnesium 1.8 mg/dL (1.6-2.3); Potassium 4.0 mmol/L (3.4-5.1); Sodium 136 mmol/L (137-145); Total Protein 8.2 g/dL (6.3-8.2)
[2025-05-05 02:41] LABS: NT-proBNP (BNP-Adult 18+) 47 pg/mL (<125); Troponin I < 0.012 ng/mL (0.01-0.034)
[2025-05-05 04:34] LABS: Troponin I < 0.012 ng/mL (0.01-0.034)
== END 2025-05-05 04:49 | disposition home or self-care (01) ==
PROVIDERS: Emergency Provider Emergency Medicine; Family Provider Family Medicine; PCP Registered Nurse Diabetes Educator
DX: R07.89 Other chest pain (principal)
CPT/HCPCS: 71045; 80053; 82550; 83690; 83735; 83880; 84484; 85025; 85379; 85610; 85730; 93005; 96374; 99284; J2270

== ENCOUNTER → 2025-05-08 15:48 | Outpatient (CLI) | payer OTHER, SELFPAY ==
--- NOTE | 2025-05-08 | DI.RAD.S_ITS ---
PROCEDURE: XR TOE RT MIN 2V INDICATIONS: INJURY TECHNIQUE: Three views of the right 5th toe were (s) acquired. COMPARISON: [facility], , XR TOE RT MIN 2V, 05/07/2025, 12:06. FINDINGS: Bones: There are no fracture or other osseous abnormalities Joints: Mild degenerative change in the 2nd through 5th interphalangeal joints. Soft tissues: No soft tissue abnormality. IMPRESSION: Mild degeneration. No fracture identified Dictated by: Dominic Ackerman M.D. on 05/09/2025 at 12:53 Approved by: Dominic Ackerman M.D. on 05/09/2025 at 12:54
--- NOTE | 2025-05-08 15:50 | DI.MG.S_ITS ---
MM screening mammo BI: 05/08/2025. BI-RADS: 1 CLINICAL: 44-year old female for bilateral screening mammogram. Tyrer-Cuzick lifetime risk of 7.2%. No personal or first-degree family history of breast cancer. PRIOR EXAMS 03/03/2024, 01/05/2023. MAMMOGRAPHY TECHNIQUE: 2D and 3D (tomosynthesis) digital mammographic views obtained, with additional images as needed for full coverage. Current study was also evaluated with a Computer Aided Detection (CAD) system. DENSITY C. The breasts are heterogeneously dense, which may obscure small masses. MAMMOGRAPHY FINDINGS Bilateral: No suspicious mass, asymmetry, microcalcification, or other abnormality seen. IMPRESSION: * No evidence of malignancy. RECOMMENDATIONS Bilateral * Annual screening mammography. OVERALL ASSESSMENT CATEGORY BI-RADS-1: Negative. The [employer] recommends annual screening mammography beginning at age 40 for women with average risk of breast cancer. ELECTRONICALLY SIGNED: Erin Jeronimo M.D. on 05/17/2025 at 02:21:21 AM PT Interpreting Station ID: [id number]
== END ==
LOC: MAMMO 15:49
PROVIDERS: Family Provider Family Medicine; PCP Registered Nurse Diabetes Educator; Referring Provider Registered Nurse Diabetes Educator; Visit Provider Registered Nurse Diabetes Educator
DX: Z12.31 Encounter for screening mammogram for malignant neoplasm of breast (principal); S93.504A Unspecified sprain of right lesser toe(s), initial encounter; X58.XXXA Exposure to other specified factors, initial encounter; M19.071 Primary osteoarthritis, right ankle and foot
CPT/HCPCS: 73660; 77063; 77067

== ENCOUNTER 2025-07-25 14:18 | Emergency (ER) | payer OTHER, SELFPAY ==
[2025-07-25 14:19] VITALS: BP 127/61; PULSE 51; RESP 13; TEMP 36.6; O2SAT 99; BMI 29.0
--- NOTE | 2025-07-25 14:23 | ED.GENADULT ---
HPI - General Adult <Jimy Monae PA-C - Last Filed: 07/25/25 15:56> General Chief complaint: Abdominal Pain Stated complaint: Cannot use the bathroom Time Seen by Provider: 07/25/25 14:22 History of Present Illness HPI narrative: 44-year-old female presents emergency department due to intermittent constipation. She states that she last had a bowel movement 2 minutes ago but that it was only a small amount and ?kind of watery?. States like she thinks she ?has a plug? in her rectum. She was still passing gas. She states that she was feel excessively full. Denies any significant abdominal pain, nausea, vomiting, fevers, or any other concerning signs or symptoms. Related Data Previous Rx's ?Medication ?Instructions ?Recorded epinephrine 0.3 mg/0.3 mL 0.3 mg (0.3 mL) IM Q5-15M PRN 06/27/25 injection, auto-injector anaphylaxis #2 ea hydroxyzine HCl 10 mg tablet 10 mg PO Q6H PRN anxiety #30 tabs 07/24/25 scopolamine base 1 mg over 3 days 1 patch transdermal Q3D PRN motion 07/24/25 transdermal patch sickness #4 ea bisacodyl 5 mg tablet,delayed 5 mg PO BEDTIME 7 days #7 tabs 07/25/25 release polyethylene glycol 3350 17 17 g PO BID 7 days #238 grams 07/25/25 gram/dose oral powder (Miralax) sennosides 8.6 mg capsule (senna) 8.6 mg PO BID PRN constipation 7 07/25/25 days #14 caps Allergies Allergy/AdvReac Type Severity Reaction Status Date / Time No Known Drug Allergies Allergy Verified 07/25/25 14:29 Review of Systems <Jimy Monae PA-C - Last Filed: 07/25/25 15:56> Review of Systems Narrative: GENERAL: Denies chills, fatigue, malaise, fever, sweats. HEENT: Denies sinus pain, ear pain, sore throat, difficulty swallowing, dizziness. RESPIRATORY: Denies dyspnea, cough, wheezing, hemoptysis, sputum. CARDIOVASCULAR: Denies chest pain, palpitations, orthopnea, edema, GASTROINTESTINAL: Reports constipation Denies nausea, vomiting, abdominal pain, diarrhea, , melena. : Denies dysuria, frequency, incontinence, hematuria, urinary retention. MUSCULOSKELETAL: denies weakness, joint pain, or bony pain SKIN: Denies rash, skin lesions, or other NEUROLOGIC: Denies weakness, headache, numbness, change in speech, confusion, seizures, incoordination. PSYCHIATRIC: No concerning psychosocial issues. 12 point review of systems is negative except for those stated above Patient History <Jimy Monae PA-C - Last Filed: 07/25/25 15:56> Medical History Paroxysmal SVT (supraventricular tachycardia) Pelvic organ prolapse quantification stage 1 cystocele Dyslipidemia Impaired fasting blood sugar Anxiety Urinary tract infection symptoms Upper extremity somatic dysfunction Left elbow pain Surgical History Anesthesia History of shoulder surgery (~02/2020) History of tubal ligation (~2002) Family History Father Brain aneurysm Social History Smoking Status: Unknown if ever smoked tobacco type: cigarettes and vaping alcohol intake frequency: 0-2 drinks per day Exam <Jimy Monae PA-C - Last Filed: 07/25/25 15:56> Narrative Exam Narrative: GENERAL: Well-developed patient, in mild distress. HEAD: Atraumatic. Normocephalic. EYES: Pupils equal round and reactive. Extraocular motions intact. No scleral icterus. No injection or drainage. ENT: Nose without bleeding, purulent drainage. Throat without erythema, tonsillar hypertrophy or exudate. Airway patent. NECK: Trachea midline. Non tender EXTREMITIES: No edema or joint tenderness. NEURO: AOx3. SKIN: No rash or erythema of visible areas Abdomen: No significant tenderness to palpation Initial Vital Signs Initial Vital Signs: Vital Signs Temperature 97.8 F 07/25/25 14:19 Pulse Rate 51 L 07/25/25 14:19 Respiratory Rate 13 07/25/25 14:19 Blood Pressure 127/61 07/25/25 14:19 Pulse Oximetry 99 07/25/25 14:19 Oxygen Delivery Method Room Air 07/25/25 14:19 <Tracie Miranda DO - Last Filed: 07/26/25 20:41> Initial Vital Signs Initial Vital Signs: Vital Signs Temperature 97.8 F 07/25/25 14:19 Pulse Rate 51 L 07/25/25 14:19 Respiratory Rate 13 07/25/25 14:19 Blood Pressure 127/61 07/25/25 14:19 Pulse Oximetry 99 07/25/25 14:19 Oxygen Delivery Method Room Air 07/25/25 14:19 Course <Jimy Monae PA-C - Last Filed: 07/25/25 15:56> Orders Ordered: Discontinued Medications Magnesium Citrate (Magnesium Citrate 300 Ml Solution) 300 ml PO NOW ONE Stop: 07/25/25 14:45 Last Admin: 07/25/25 15:04 Dose: Not Given Documented By: AIDEN Sodium Biphosphate/Sodium Phosphate (Fleets Enema) 1 each MN NOW ONE Stop: 07/25/25 14:45 Last Admin: 07/25/25 15:05 Dose: 1 each Documented By: AIDEN Vital Signs Vital signs: Vital Signs - 8 hr 07/25/25 14:19 Temperature 97.8 F Pulse Rate 51 L Respiratory Rate 13 Blood Pressure 127/61 Pulse Oximetry 99 Oxygen Delivery Method Room Air <Tracie Miranda DO - Last Filed: 07/26/25 20:41> Orders Ordered: Discontinued Medications Magnesium Citrate (Magnesium Citrate 300 Ml Solution) 300 ml PO NOW ONE Stop: 07/25/25 14:45 Last Admin: 07/25/25 15:04 Dose: Not Given Documented By: AIDEN Sodium Biphosphate/Sodium Phosphate (Fleets Enema) 1 each MN NOW ONE Stop: 07/25/25 14:45 Last Admin: 07/25/25 15:05 Dose: 1 each Documented By: AIDEN Vital Signs Vital signs: Vital Signs - 8 hr 07/25/25 14:19 Temperature 97.8 F Pulse Rate 51 L Respiratory Rate 13 Blood Pressure 127/61 Pulse Oximetry 99 Oxygen Delivery Method Room Air Medical Decision Making <Jimy Monae PA-C - Last Filed: 07/25/25 15:56> MDM Narrative Medical decision making narrative: ED course: This is a 44-year-old female presenting to the emergency department due to constipation for the last few days. No significant abdominal pain or vomiting and low concern for small bowel obstruction. No history of abdominal surgeries. Patient was given an enema which helped her had a moderate-sized bowel movement. She will be given magnesium citrate as well as prescription for MiraLax and senna and bisacodyl suppository to take home. CC: Constipation Complicating co-morbidities: No pertinent medical history. Data collected from: Previous notes Medical records reviewed: Patient was last seen in this emergency department roughly a month ago due to corneal abrasion. No pertinent medical history. Differential considered, but not limited to: Constipation, small-bowel obstruction Exam documented above, pertinent findings include: No significant abdominal tenderness to palpation Lab Test results independently reviewed as above. Pertinent findings: None obtained Imaging studies independently reviewed: None known Scores Used: None MIPS Elements: None Consultations: None Treatments: Enema Re-evaluations: Bowel movement after enema, patient felt better Discussion: Discussed plan with the patient was comfortable with the plan Diagnosis: Constipation Disposition: see below, along with detailed discharge instructions that have been reviewed with patient as well as indications for ED re-evaluation and additional outpatient follow up Discharge Plan Departure Patient Disposition: Home Clinical Impression: Constipation Qualifiers: Constipation type: unspecified constipation type Qualified Code(s): K59.00 - Constipation, unspecified Instructions: DI for Constipation Activity Restrictions/Additional Instructions: Thank you for coming to the [facility] Emergency Department today. I am glad the enema help with the constipation. You may take the magnesium citrate tonight. Tomorrow you may start the MiraLax, senna, bisacodyl suppositories as prescribed. Please return to the emergency department if you develop any CMT new or worsening abdominal pain, significant nausea vomiting, or any other concerning signs or symptoms. I hope you feel better soon. Please follow up with your primary care provider within a week if your symptoms continue. If you do not have a primary care provider please contact the [facility] Resource line at [phone]. They will ask some questions about your medical history and help you get set up with a provider in the community. Prescriptions: New polyethylene glycol 3350 [Miralax] 17 gram/dose powder 17 g PO BID 7 Days Qty: 238 0RF bisacodyl 5 mg tablet,delayed release (DR/EC) 5 mg PO BEDTIME 7 Days Qty: 7 0RF senna 8.6 mg capsule 8.6 mg PO BID PRN (Reason: constipation) 7 Days Qty: 14 0RF No Action epinephrine 0.3 mg/0.3 mL auto-injector 0.3 mg IM Q5-15M PRN (Reason: anaphylaxis) Qty: 2 0RF Rx Instructions: do not exceed 3 doses per episode hydroxyzine HCl 10 mg tablet 10 mg PO Q6H PRN (Reason: anxiety) Qty: 30 2RF Rx Instructions: If 1 tab ineffective, may take 2 tabs Q 6 hours prn scopolamine base 1 mg over 3 days patch 3 day 1 patch transdermal Q3D PRN (Reason: motion sickness) Qty: 4 1RF Referrals: Gabino Dumont ARNP [Primary Care Provider, Medical] Stand Alone Forms: Patient Portal/API ED Sign-out <Tracie Miranda DO - Last Filed: 07/26/25 20:41> Cosign ED Attending Cosisadoraature Attestation: I was available for consultation.
[2025-07-25] MEDS: FLEETS ENEMA 1 EACH PR (15:05)
--- NOTE | 2025-07-25 15:56 | PC.NURSE ---
PATIENT HAS ABDOMINAL PAIN AND BLOATING NOTED PT REPORTS SEVERAL DAYS WITHOUT BM. AFTER ENEMA PT ABLE TO PRODUCE MODERATE BM APPEARED SOFT. REPORTING RELIEF AFTER BM
== END 2025-07-25 16:02 | disposition home or self-care (01) ==
PROVIDERS: Emergency Provider Physician Assistant Medical; Family Provider Family Medicine; PCP Registered Nurse Diabetes Educator
DX: K59.00 Constipation, unspecified (principal)
CPT/HCPCS: 99283

== ENCOUNTER 2025-07-26 21:48 | Emergency (ER) | payer OTHER, SELFPAY ==
[2025-07-26 21:54] VITALS: BP 100/65; PULSE 54; RESP 16; TEMP 36.1; O2SAT 98; BMI 28.3
--- NOTE | 2025-07-27 00:32 | ED_ITS ---
HPI - Headache General Chief Complaint: Headache Stated Complaint: bad Migraine Time Seen by Provider: 07/26/25 23:12 Mode of arrival: Ambulatory Related Data Previous Rx's ?Medication ?Instructions ?Recorded epinephrine 0.3 mg/0.3 mL 0.3 mg (0.3 mL) IM Q5-15M [place] N 06/27/25 injection, auto-injector anaphylaxis #2 ea hydroxyzine HCl 10 mg tablet 10 mg PO Q6H PRN anxiety #30 tabs 07/24/25 scopolamine base 1 mg over 3 days 1 patch transdermal Q3D PRN motion 07/24/25 transdermal patch sickness #4 ea bisacodyl 5 mg tablet,delayed 5 mg PO BEDTIME 7 days # 7 tabs 07/25/25 release polyethylene glycol 3350 17 17 g PO BID 7 days #238 gr ams 07/25/25 gram/dose oral powder (Miralax) sennosides 8.6 mg capsule (senna) 8.6 mg PO BID PRN co nstipation 7 07/25/25 days #14 caps Allergies Allergy/AdvReac Type Severity Reaction Status Date / Time No Known Drug Allergies Allergy Verified 07/26/25 21:54 Patient History Medical History Paroxysmal SVT (supraventricular tachycardia) Pelvic organ prolapse quantification stage 1 cystocele Dyslipidemia Impaired fasting blood sugar Anxiety Urinary tract infection symptoms Upper extremity somatic dysfunction Left elbow pain Surgical History Anesthesia History of shoulder surgery (~02/2020) History of tubal ligation (~2002) Family History Father Brain aneurysm Social History Smoking Status: Former smoker Smoking Status: Former smoker tobacco type: cigarettes and vaping alcohol intake frequency: 0-2 drinks per day Exam Initial Vital Signs Initial Vital Signs: Vital Signs Temperature 97.0 F L 07/26/25 21:54 Pulse Rate 54 L 07/26/25 21:54 Respiratory Rate 16 07/26/25 21:54 Blood Pressure 100/65 07/26/25 21:54 Pulse Oximetry 98 10/10/25 21:54 Oxygen Delivery Method Room Air 10/10/25 21:54 Course Orders Ordered: Discontinued Medications Dexamethasone (Dexamethasone 10 Mg/Ml Vial) 10 mg IV NOW ONE Stop: 07/26/25 23:14 Diphenhydramine HCl (Diphenhydramine 50 Mg/Ml Vial) 50 mg IV NOW ONE Stop: 07/26/25 23:14 Droperidol (Droperidol 2.5 Mg/Ml Vial) 2.5 mg IV NOW ONE Stop: 07/26/25 23:14 Lactated Ringer's (Lactated Ringers) 1,000 mls @ 1,000 mls/hr IV BOLUS ONE Stop: 07/27/25 00:12 Ketorolac Tromethamine (Ketorolac 30 Mg/Ml Vial) 15 mg IV NOW ONE Stop: 07/26/25 23:14 Vital Signs Vital signs: Vital Signs - 8 hr 07/26/25 21:54 Temperature 97.0 F L Pulse Rate 54 L Respiratory Rate 16 Blood Pressure 100/65 Pulse Oximetry 98 Oxygen Delivery Method Room Air Discharge Plan Departure Patient Disposition: Left Without Being Seen Clinical Impression: Patient left without being seen Prescriptions: No Action epinephrine 0.3 mg/0.3 mL auto-injector 0.3 mg IM Q5-15M PRN (Reason: anaphylaxis) Qty: 2 0RF Rx Instructions: do not exceed 3 doses per episode hydroxyzine HCl 10 mg tablet 10 mg PO Q6H PRN (Reason: anxiety) Qty: 30 2RF Rx Instructions: If 1 tab ineffective, may take 2 tabs Q 6 hours prn scopolamine base 1 mg over 3 days patch 3 day 1 patch transdermal Q3D PRN (Reason: motion sickness) Qty: 4 1RF polyethylene glycol 3350 [Miralax] 17 gram/dose powder 17 g PO BID 7 Days Qty: 238 0RF bisacodyl 5 mg tablet,delayed release (DR/EC) 5 mg PO BEDTIME 7 Days Qty: 7 0RF senna 8.6 mg capsule 8.6 mg PO BID PRN (Reason: constipation) 7 Days Qty: 14 0RF
== END 2025-07-27 00:31 | disposition left against medical advice (07) ==
PROVIDERS: Emergency Provider Family Medicine; Family Provider Family Medicine; PCP Registered Nurse Diabetes Educator
DX: Z53.21 Procedure and treatment not carried out due to patient leaving prior to being seen by health care provider (principal)
CPT/HCPCS: 99281

== ENCOUNTER 2025-07-27 14:06 | Emergency (ER) | payer OTHER, SELFPAY ==
[2025-07-27 14:32] VITALS: BP 128/67; PULSE 69; RESP 16; TEMP 36.6; O2SAT 99; BMI 29.0
[2025-07-27 14:58] LABS: Add Manual Diff / Slide Review NO; Hematocrit 40.7 % (36-46); Hemoglobin 13.9 g/dL (12.0-16.0); Lymphocytes Absolute Auto 2500 /uL (1100-4500); Mean Corpuscular HGB Conc 34.2 % (30-36); Mean Corpuscular Hemoglobin 31.2 PG (26-34); Mean Corpuscular Volume 91.1 fL (80-100); Platelet Count 233 X10^3/uL (150-400)
[2025-07-27 15:09] LABS: Alanine Aminotransferase 16 IU/L (<35); Albumin 4.9 g/dL (3.5-5.0); Albumin Globulin Ratio 1.5 (1.0-2.8); Alkaline Phosphatase 72 U/L (38-126); Blood Urea Nitrogen 12 mg/dL (7-17); Carbon Dioxide 23 mmol/L (22-32); Chloride 104 mmol/L (98-107); Estimated Glomerular Filt Rate > 60 mL/min (>60); Globulin 3.3 g/dL (1.7-4.1); HEMOLYSIS < 15 (0-50); Lipase 94 U/L (23-300); Sodium 137 mmol/L (137-145); Total Protein 8.2 g/dL (6.3-8.2)
[2025-07-27 15:36] LABS: Calcium 9.4 mg/dL (8.4-10.2); Glucose 93 mg/dL (70-99); Potassium 4.3 mmol/L (3.4-5.1)
--- NOTE | 2025-07-27 15:42 | DI.CT.S_ITS ---
PROCEDURE: CT ABDOMEN PELVIS W CON INDICATIONS: Diffuse abdominal pain, belching TECHNIQUE: After the administration of intravenous contrast, axial sections acquired from the lung bases to the pubic symphysis. Coronal and sagittal reformats were performed. For radiation dose reduction, the following was used: automated exposure control, adjustment of mA and/or kV according to patient size. COMPARISON: None. FINDINGS: Image quality: Diagnostic. Lower Chest: Trace pleural effusions. ABDOMEN: Liver: No solid mass. Gallbladder: No radiopaque gallstones or wall thickening. Biliary ducts: No biliary dilation. Pancreas: No ductal dilation. Spleen: Size is within normal limits. Adrenal Glands: No adrenal nodules. Kidneys and Ureters: No hydronephrosis. No solid mass. No complex renal cystic lesion which requires follow up. Stomach and Bowel: Normal colonic caliber, without significant wall thickening. Normal appendix. Moderate colonic stool load. Peritoneum: No abnormal intraperitoneal fluid. No free air. Ventral Wall: No significant ventral hernia. Abdominal Nodes: No retroperitoneal or mesenteric adenopathy by size criteria. Vessels: Aorta and inferior vena cava are normal in size. PELVIS: Pelvic Organs: IUD appears appropriately positioned within the endometrium. Bladder: No bladder wall thickening, accounting for underdistention. Pelvic Nodes: No enlarged lymph nodes. Miscellaneous: No inguinal hernias are seen. Bones: No aggressive osseous abnormality. IMPRESSION: Moderate colonic stool load without obstruction. Dictated by: Cole Ivey M.D. on 07/27/2025 at 15:11 Approved by: Cole Ivey M.D. on 07/27/2025 at 15:13
[2025-07-27 16:33] VITALS: PULSE 65; O2SAT 99
--- NOTE | 2025-07-27 16:33 | ED_ITS ---
HPI - Abdominal Pain General Chief Complaint: Abdominal Pain Stated Complaint: constipation for 2 weeks- seen 2 days ago Time Seen by Provider: 07/27/25 15:41 Source: patient Mode of arrival: Ambulatory Limitations: no limitations History of Present Illness HPI narrative: 44-year-old female with history of dyslipidemia, recurrent constipation, irritable bowel syndrome, anxiety, presenting with constipation. Notably, patient was evaluated 2 days prior and treated for similar with 2 enemas and Mag citrate, she endorses having had a bowel movement however has had recurrence of sensation of feeling she needs to have a bowel movement. She states that she has not yet taken MiraLax at home due to concern from her family that this would be unsafe. She denies any persistent nausea or vomiting, no fevers, abdominal tenderness, urinary symptoms. Location: diffuse Related Data Previous Rx's ?Medication ?Instructions ?Recorded epinephrine 0.3 mg/0.3 mL 0.3 mg (0.3 mL) IM Q5-15M [place] N 06/27/25 injection, auto-injector anaphylaxis #2 ea hydroxyzine HCl 10 mg tablet 10 mg PO Q6H PRN anxiety #30 tabs 07/24/25 scopolamine base 1 mg over 3 days 1 patch transdermal Q3D PRN motion 07/24/25 transdermal patch sickness #4 ea bisacodyl 5 mg tablet,delayed 5 mg PO BEDTIME 7 days # 7 tabs 07/25/25 release polyethylene glycol 3350 17 17 g PO BID 7 days #238 gr ams 07/25/25 gram/dose oral powder (Miralax) sennosides 8.6 mg capsule (senna) 8.6 mg PO BID PRN co nstipation 7 07/25/25 days #14 caps Allergies Allergy/AdvReac Type Severity Reaction Status Date / Time No Known Drug Allergies Allergy Verified 07/26/25 21:54 Review of Systems Review of Systems ROS Unobtainable: All systems reviewed & are unremarkable except as noted in HPI and below Constitutional Constitutional: Denies fatigue and Denies weakness Eyes Eyes: Denies change in vision Cardiovascular Cardiovascular: Denies chest pain and Denies dyspnea Respiratory Respiratory: Denies dyspnea Gastrointestinal Gastrointestinal: Reports change in bowel habits, Reports constipation, Denies nausea and Denies vomiting Genitourinary Genitourinary: Denies dysuria Musculoskeletal Musculoskeletal: Denies back pain Neurologic Neurologic: Denies weakness Endocrine Endocrine: Denies fatigue Patient History Medical History Paroxysmal SVT (supraventricular tachycardia) Pelvic organ prolapse quantification stage 1 cystocele Dyslipidemia Impaired fasting blood sugar Anxiety Urinary tract infection symptoms Upper extremity somatic dysfunction Left elbow pain Surgical History Anesthesia History of shoulder surgery (~02/2020) History of tubal ligation (~2002) Family History Father Brain aneurysm tobacco type: cigarettes and vaping alcohol intake frequency: 0-2 drinks per day Exam Narrative Exam Narrative: GENERAL: in no distress, not toxic not dyspneic HEAD: Normocephalic. EYES: Pupils equal round ENT: Mucous membranes moist. NECK: Trachea midline. CARDIOVASCULAR: Regular rate and rhythm RESPIRATORY: Clear to auscultation. Breath sounds equal bilaterally. No wheezes, rales, or rhonchi. GASTROINTESTINAL: Abdomen soft, non-tender EXTREMITIES: No gross deformities. BACK: No flank tenderness. NEURO: AOx4. Clear speech SKIN: Warm and dry PSYCH: Not anxious, is cooperative Initial Vital Signs Initial Vital Signs: Vital Signs Temperature 97.9 F 07/27/25 14:32 Pulse Rate 69 07/27/25 14:32 Respiratory Rate 16 07/27/25 14:32 Blood Pressure 128/67 07/27/25 14:32 Pulse Oximetry 99 07/27/25 14:32 Oxygen Delivery Method Room Air 07/27/25 14:32 Const General: cooperative, healthy appearing, No acute distress and No diaphoretic HENMT Head: normocephalic and atraumatic Course Orders Ordered: ED Orders 07/27/25 14:50 Complete Blood Count AUTO DIFF Stat Comprehensive Metabolic Panel Stat Lipase Stat 07/27/25 15:42 CT abdomen pelvis w con Stat Discontinued Medications Ondansetron HCl (Ondansetron 4 Mg/2 Ml Inj) 4 mg IV NOW PRN PRN Reason: Nausea And Vomiting Ondansetron HCl (Ondansetron 4 Mg Odt) 4 mg PO NOW PRN PRN Reason: Nausea And Vomiting Vital Signs Vital signs: Vital Signs - 8 hr 07/27/25 14:32 07/27/25 16:33 07/27/25 16:34 Temperature 97.9 F Pulse Rate 69 65 Respiratory Rate 16 Blood Pressure 128/67 107/60 Pulse Oximetry 99 99 Oxygen Delivery Method Room Air 07/27/25 16:34 07/27/25 17:00 Temperature Pulse Rate 65 62 Respiratory Rate 16 Blood Pressure 107/60 Pulse Oximetry 99 98 Oxygen Delivery Method Room Air MDM - Abdominal Pain Differential Diagnosis Differential diagnosis: Likely abdominal pain, constipation, diverticulitis, gastroenteritis and small bowel obstruction Condition is:: Inadequately Controlled Medical Records Attestation: I reviewed the patient's medical records. Medical records narrative: Recent evaluation on 07/25/2025 for constipation without imaging or labs at that time Lab Data Attestation: I reviewed the patient's lab results. Lab results narrative: CBC without leukocytosis, anemia, other acute abnormality on independent review, similarly CMP without DULCE MARIA, electrolyte abnormality, LFT elevation. 07/27/25 14:50 07/27/25 14:50 Labs: Lab Results 07/27/25 Range/Units 14:50 WBC 8.1 (4.5-11.0) X10^3/uL RBC 4.47 (4.0-5.2) X10^6/uL Hgb 13.9 (12.0-16.0) g/dL Hct 40.7 (36-46) % MCV 91.1 (80-100) fL MCH 31.2 (26-34) PG MCHC 34.2 (30-36) % RDW 12.8 (11.6-14.8) % Plt Count 233 (150-400) X10^3/uL Neut % (Auto) 60.0 (50-75) % Lymph % (Auto) 31.2 (25-40) % Hunt % (Auto) 6.5 (3-14) % Eos % (Auto) 1.5 L (2-4) % Baso % (Auto) 0.8 (0-2) % Neut # (Auto) 4900 (7386-9908) /uL Lymph # (Auto) 2500 (4269-8037) /uL Hunt # (Auto) 500 (0-900) /uL Eos # (Auto) 100 (0-450) /uL Baso # (Auto) 100 (0-100) /uL Sodium 137 (137-145) mmol/L Potassium 4.3 (3.4-5.1) mmol/L Chloride 104 (98-107) mmol/L Carbon Dioxide 23 (22-32) mmol/L BUN 12 (7-17) mg/dL Creatinine 0.82 (0.52-1.04) mg/dL Estimated GFR > 60 (>60) mL/min BUN/Creatinine Ratio 14.6 (6-22) Glucose 93 (70-99) mg/dL Calcium 9.4 (8.4-10.2) mg/dL Total Bilirubin 0.4 (0.2-1.3) mg/dL AST 27 (14-36) IU/L ALT 16 (<35) IU/L Alkaline Phosphatase 72 (38-126) U/L Total Protein 8.2 (6.3-8.2) g/dL Albumin 4.9 (3.5-5.0) g/dL Globulin 3.3 (1.7-4.1) g/dL Albumin/Globulin Ratio 1.5 (1.0-2.8) Lipase 94 (23-300) U/L Point of care testing: Point of Care Testing Test Results Negative Urine Dip Bedside Urine Glucose Negative Bedside Urine Bilirubin - Negative Bedside Urine Ketone ++ 40 Urine Specific [place] 1.005 Bedside Urine Occult Blood ++ Bedside Urine pH 6.0 Bedside Urine Protein - Negative Bedside Urine Urobilinogen - Negative Bedside Urine Nitrite - Negative Bedside Urine Leukocytes - Negative Esterase Imaging Data CT scan - abdomen/pelvis: Attestation: I personally reviewed and interpreted this imaging study as follows: My Impression: CT abdomen and pelvis demonstrating significant stool burden without evidence of inflammatory changes or obstruction non independent review Radiologist's Impression: PROCEDURE: CT ABDOMEN PELVIS W CON INDICATIONS: Diffuse abdominal pain, belching TECHNIQUE: After the administration of intravenous contrast, axial sections acquired from the lung bases to the pubic symphysis. Coronal and sagittal reformats were performed. For radiation dose reduction, the following was used: automated exposure control, adjustment of mA and/or kV according to patient size. COMPARISON: None. FINDINGS: Image quality: Diagnostic. Lower Chest: Trace pleural effusions. ABDOMEN: Liver: No solid mass. Gallbladder: No radiopaque gallstones or wall thickening. Biliary ducts: No biliary dilation. Pancreas: No ductal dilation. Spleen: Size is within normal limits. Adrenal Glands: No adrenal nodules. Kidneys and Ureters: No hydronephrosis. No solid mass. No complex renal cystic lesion which requires follow up. Stomach and Bowel: Normal colonic caliber, without significant wall thickening. Normal appendix. Moderate colonic stool load. Peritoneum: No abnormal intraperitoneal fluid. No free air. Ventral Wall: No significant ventral hernia. Abdominal Nodes: No retroperitoneal or mesenteric adenopathy by size criteria. Vessels: Aorta and inferior vena cava are normal in size. PELVIS: Pelvic Organs: IUD appears appropriately positioned within the endometrium. Bladder: No bladder wall thickening, accounting for underdistention. Pelvic Nodes: No enlarged lymph nodes. Miscellaneous: No inguinal hernias are seen. Bones: No aggressive osseous abnormality. IMPRESSION: Moderate colonic stool load without obstruction. Dictated by: Cole Ivey M.D. on 07/27/2025 at 15:11 Discharge Plan Departure Patient Disposition: Home Clinical Impression: Constipation Qualifiers: Constipation type: unspecified constipation type Qualified Code(s): K59.00 - Constipation, unspecified Instructions: DI for Constipation Activity Restrictions/Additional Instructions: You were seen in the emergency department for your abdominal discomfort and constipation. Evaluation here included examination by an RN in an empty, lab work, and CT imaging. Your workup has been overall reassuring and we do not see any evidence of an acute process that would require emergent intervention or admission to the hospital this time. Your CT does demonstrate a large stool burden and so we recommend continued management with further MiraLax. Please continue to hydrate well while using the MiraLax. Please follow-up with your primary care provider and with GI as scheduled. If you develop worsening abdominal pain, fevers, vomiting, urinary symptoms, other symptoms that are concerning to you, please return to the emergency department for further evaluation. Prescriptions: No Action epinephrine 0.3 mg/0.3 mL auto-injector 0.3 mg IM Q5-15M PRN (Reason: anaphylaxis) Qty: 2 0RF Rx Instructions: do not exceed 3 doses per episode hydroxyzine HCl 10 mg tablet 10 mg PO Q6H PRN (Reason: anxiety) Qty: 30 2RF Rx Instructions: If 1 tab ineffective, may take 2 tabs Q 6 hours prn scopolamine base 1 mg over 3 days patch 3 day 1 patch transdermal Q3D PRN (Reason: motion sickness) Qty: 4 1RF polyethylene glycol 3350 [Miralax] 17 gram/dose powder 17 g PO BID 7 Days Qty: 238 0RF bisacodyl 5 mg tablet,delayed release (DR/EC) 5 mg PO BEDTIME 7 Days Qty: 7 0RF senna 8.6 mg capsule 8.6 mg PO BID PRN (Reason: constipation) 7 Days Qty: 14 0RF Referrals: Gabino Dumont ARNP [Primary Care Provider, Medical] Stand Alone Forms: Patient Portal/API
[2025-07-27 16:34] VITALS: BP 107/60; PULSE 65; O2SAT 99
[2025-07-27 17:00] VITALS: BP 107/60; PULSE 62; RESP 16; O2SAT 98
== END 2025-07-27 17:01 | disposition home or self-care (01) ==
PROVIDERS: Emergency Provider Student in an Organized Health Care Education/Training Program; Family Provider Family Medicine; PCP Registered Nurse Diabetes Educator
DX: K59.00 Constipation, unspecified (principal)
CPT/HCPCS: 36415; 74177; 80053; 81003; 81025; 83690; 85025; 99283; 99284; Q9967

== ENCOUNTER → 2025-08-06 16:30 | Outpatient (CLI) | payer OTHER, SELFPAY | PROVIDERS: Family Provider Family Medicine; PCP Registered Nurse Diabetes Educator; Visit Provider Physician Assistant | DX: R30.0 Dysuria (principal); R82.90 Unspecified abnormal findings in urine | CPT/HCPCS: 87077; 87086 ==

== ENCOUNTER 2025-09-08 12:59 | Emergency (ER) | payer OTHER, SELFPAY ==
[2025-09-08 13:05] VITALS: BP 126/59; PULSE 74; RESP 16; TEMP 37.4; O2SAT 100; BMI 29.2
--- NOTE | 2025-09-08 13:10 | DI.RAD.S_ITS ---
PROCEDURE: XR HIP W PEL IF DONE LT 2V INDICATIONS: left hip pain/difficulty walking TECHNIQUE: 2 views of the hip were acquired. COMPARISON: [facility], CR, XR HIP W PEL IF DONE LT 2V, 03/03/2024, 11:57. FINDINGS: Bones: No fractures or dislocations. No suspicious bony lesions. The visualized pelvic ring appears intact. Soft tissues: No suspicious soft tissue calcifications or masses. IUD IMPRESSION: No acute bony abnormality. No change from the prior exam Approved by: Juan Davis M.D. on 09/08/2025 at 13:26
--- NOTE | 2025-09-08 14:20 | ED.EXTPRO ---
HPI - Extremity Problem General Chief complaint: Extremity Problem,Nontraumatic Stated complaint: px in hip lft side Time Seen by Provider: 09/08/25 14:13 Source: patient Mode of arrival: Wheelchair History of Present Illness HPI Narrative: Patient is a healthy 44-year-old female presenting today with sudden onset of left buttock and hip pain. She denies any fall or injury. She thought she could walk it off but the pain just intensified. It is not radiating down her leg. No changes in bowel or bladder habits. She took combination Tylenol Motrin prior to arrival but it has not really helped. No significant back pain. Related Data Previous Rx's ?Medication ?Instructions ?Recorded epinephrine 0.3 mg/0.3 mL 0.3 mg (0.3 mL) IM Q5-15M PRN 06/27/25 injection, auto-injector anaphylaxis #2 ea hydroxyzine HCl 10 mg tablet 10 mg PO Q6H PRN anxiety #30 tabs 07/24/25 methocarbamol 500 mg tablet 500 mg PO TID PRN muscle spasm #20 09/08/25 tabs Allergies Allergy/AdvReac Type Severity Reaction Status Date / Time No Known Drug Allergies Allergy Verified 09/08/25 13:05 Patient History Medical History Paroxysmal SVT (supraventricular tachycardia) Pelvic organ prolapse quantification stage 1 cystocele Dyslipidemia Impaired fasting blood sugar Anxiety Urinary tract infection symptoms Upper extremity somatic dysfunction Left elbow pain Surgical History Anesthesia History of shoulder surgery (~02/2020) History of tubal ligation (~2002) Family History Father Brain aneurysm Social History Smoking Status: Former smoker Smoking Status: Former smoker tobacco type: cigarettes and vaping alcohol intake frequency: 0-2 drinks per day Exam Initial Vital Signs Initial Vital Signs: Vital Signs Temperature 99.4 F 09/08/25 13:05 Pulse Rate 74 09/08/25 13:05 Respiratory Rate 16 09/08/25 13:05 Blood Pressure 126/59 L 09/08/25 13:05 Pulse Oximetry 100 09/08/25 13:05 Oxygen Delivery Method Room Air 09/08/25 13:05 GENERAL: Well-appearing, well-nourished and in no acute distress. CARDIOVASCULAR: peripheral pulses in tact, cap refill <2 sec RESPIRATORY: No respiratory distress, speaks in full sentences without difficulty BACK: No vertebral tenderness no step-off pain is reproducible in left buttock and lower lumbar area EXTREMITIES: Normal range of motion, no clubbing or edema. Neurovascularly intact NEUROLOGICAL: Cranial nerves II through XII grossly intact. Normal gait and speech. SKIN: Warm, dry, no petechiae, no rashes or lesions. Course Orders Ordered: ED Orders 09/08/25 13:10 XR hip w pel LT 2V Stat Discontinued Medications Ketorolac Tromethamine (Ketorolac 30 Mg/Ml Vial) 30 mg IM NOW ONE Stop: 09/08/25 14:20 Last Admin: 09/08/25 14:27 Dose: 30 mg Documented By: ROSANNA Methocarbamol (Methocarbamol 500 Mg Tablet) 500 mg PO NOW ONE Stop: 09/08/25 14:20 Last Admin: 09/08/25 14:27 Dose: 500 mg Documented By: ROSANNA Vital Signs Vital signs: Vital Signs - 8 hr 09/08/25 13:05 09/08/25 14:31 Temperature 99.4 F Pulse Rate 74 61 Respiratory Rate 16 16 Blood Pressure 126/59 L 140/62 Pulse Oximetry 100 99 Oxygen Delivery Method Room Air Room Air MDM - Extremity (Nontraumatic) Imaging Data Extremity x-ray #1: Radiologist's Impression: PROCEDURE: XR HIP W PEL IF DONE LT 2V INDICATIONS: left hip pain/difficulty walking TECHNIQUE: 2 views of the hip were acquired. COMPARISON: [facility], , XR HIP W PEL IF DONE LT 2V, 03/03/2024, 11:57. FINDINGS: Bones: No fractures or dislocations. No suspicious bony lesions. The visualized pelvic ring appears intact. Soft tissues: No suspicious soft tissue calcifications or masses. IUD IMPRESSION: No acute bony abnormality. No change from the prior exam Approved by: Juan Davis M.D. on 09/08/2025 at 13:26 [facility] Narrative Medical decision making narrative: Patient healthy 44-year-old female presenting today with ongoing left buttock pain, suspect musculoskeletal. X-ray is negative. She is offered narcotics but says she does not tolerate them. She is given a shot of Toradol and methocarbamol. Discussed with her no further NSAIDs for the rest of the day supportive care and movement. She is having improvement. Muscle relaxer did seem to help. All questions have been answered. Discharge Plan Departure Patient Disposition: Home Clinical Impression: Muscle spasm Instructions: DI for Muscle Spasm Activity Restrictions/Additional Instructions: *You have been diagnosed with muscle spasm *What to do: Increase activity as tolerated to light activity is encouraged heating pad stretching. *Continue to take medications as directed Methocarbamol 500 mg every 8 hours if needed for muscle spasm Motrin 600 mg every 6 hours for [id number] pain (do not take any more today) Tylenol 1000 mg every 6 hours for [id number] *Follow up with your primary care provider in 2-3 days or call [phone] *Return to ER if you should have increasing pain numbness tingling weakness loss of urine or [or] any new, worsening or concerning symptoms Prescriptions: New methocarbamol 500 mg tablet 500 mg PO TID PRN (Reason: muscle spasm) Qty: 20 0RF Rx Instructions: 1-2 tablets every 8 hours if needed for muscle spasms No Action epinephrine 0.3 mg/0.3 mL auto-injector 0.3 mg IM Q5-15M PRN (Reason: anaphylaxis) Qty: 2 0RF Rx Instructions: do not exceed 3 doses per episode hydroxyzine HCl 10 mg tablet 10 mg PO Q6H PRN (Reason: anxiety) Qty: 30 2RF Rx Instructions: If 1 tab ineffective, may take 2 tabs Q 6 hours prn Referrals: Gabino Dumont ARNP [Primary Care Provider, Medical] Stand Alone Forms: Patient Portal/API
[2025-09-08] MEDS: KETOROLAC 30 MG/ML VIAL IM (14:27)
[2025-09-08 14:31] VITALS: BP 140/62; PULSE 61; RESP 16; O2SAT 99
== END 2025-09-08 15:09 | disposition home or self-care (01) ==
PROVIDERS: Emergency Provider Emergency Medicine; Family Provider Family Medicine; PCP Registered Nurse Diabetes Educator
DX: M62.838 Other muscle spasm (principal); M25.552 Pain in left hip
CPT/HCPCS: 73502; 96372; 99283; J1885

== ENCOUNTER → 2025-10-05 11:19 | Outpatient (CLI) | payer OTHER, SELFPAY | PROVIDERS: Family Provider Family Medicine; PCP Registered Nurse Diabetes Educator; Visit Provider Chiropractor | DX: R30.0 Dysuria (principal) | CPT/HCPCS: 87086 ==